=== PATIENT | female | born 1990 | race Caucasian/White ===

== ENCOUNTER 2024-01-07 12:51 | Emergency (ER) | payer OTHER, SELFPAY ==
[2024-01-07 12:51] VITALS: BMI 69.9
[2024-01-07 12:52] VITALS: BP 163/115
[2024-01-07 13:14] LABS: % Basophils 0.6 % (0-2); % Eosinophils 1.2 % (0-6); % Immature Granulocytes 0.3 % (0-0.5); % Lymphocytes 29.6 % (20.5-51.1); % Monocytes 5.8 % (1.7-9.3); % Neutrophils 62.5 % (42.2-75.2); Absolute Eosinophils 0.1 10^3/uL (0-0.7); Absolute Lymphocytes 2.1 10^3/uL (1.2-3.4); Absolute Monocytes 0.4 10^3/uL (0.1-0.6); Absolute Neutrophils 4.5 10^3/uL (1.4-6.5); Hematocrit 38.1 % (37.0-47.0); Hemoglobin 12.9 g/dL (12.0-16.0); Mean Corp Hgb Conc. 33.9 g/dL (33.0-37.0); Mean Corpuscular Hgb 29.9 pg (27.0-31.0); Mean Corpuscular Volume 88.2 fL (81.0-99.0); Mean Platelet Volume 8.8 fL (7.4-10.4); Nucleated Red Blood Cells % 0 %; Platelet Count 217 10^3/uL (130-400); Red Blood Cell Count 4.32 10^6/uL (4.20-5.40); Red Cell Dist. Width 13.1 % (11.5-14.5); White Blood Cell Count 7.2 10^3/uL (4.8-10.8)
[2024-01-07 13:23] LABS: ALT (SGPT) 16 U/L (0-35); AST (SGOT) 25 U/L (14-36); Albumin 4.2 g/dl (3.5-5.0); Alkaline Phosphatase 65 U/L (38-126); Blood Urea Nitrogen 14 mg/dl (7-17); Calcium 8.9 mg/dl (8.4-10.2); Carbon Dioxide 24 mmol/L (22-30); Chloride 107 mmol/L (98-107); Glucose 101 mg/dl (70-99); Potassium 4.1 mmol/L (3.5-5.1); Sodium 136 mmol/L (135-145); Total Bilirubin 0.4 mg/dl (0.2-1.3); Total Protein 7.6 g/dl (6.3-8.2); eGFR > 60.00
[2024-01-07 15:39] VITALS: BP 157/94
--- NOTE | 2024-01-07 15:51 | ED.GENMED ---
History of Present Illness
<Odalys Gunn PA-C - Last Filed: 01/11/24 10:26>
General
Chief Complaint: Abdominal Pain
Source: patient
Exam Limitations: none
Time Seen by Provider: 01/07/24 15:41
Nursing documentation reviewed up to this point in time: agreed with
Travel History
Have you had any contact with someone who has COVID-19?: No
Do you have any symptoms of coronavirus? Fever > 100 degrees, chills, cough, shortness of breath, sore throat, loss of taste or smell, muscle aches, or headache?: No
History of Present Illness
History of Present Illness:
This is of 33-year-old female with a past medical history of arm DVT, PCOS, dermoid cyst status post right oophorectomy presenting emergency department today with left-sided pelvic pain and left back pain for the past 2 days. Patient states that
the pain is constant, however it will get worse at certain times throughout the day and become very severe. Patient is not able to identify anything that makes her pain particularly worse. Patient states that her pain does not respond well to
ibuprofen or acetaminophen. Patient denies any nausea or vomiting. Patient states that her bowel movements have been regular and normal. Patient's last menstrual cycle was around 3 weeks ago. Patient denies any dysuria, hematuria. Patient
denies any chance of , denies any history of STDs. Patient has a vaginal discharge. Patient denies any history of abdominal surgeries other than her L oophorectomy and her .
Past History
<Odalys Gunn PA-C - Last Filed: 01/11/24 10:26>
Past History
ED Past Medical History: Asthma and Other (ADHD, Ankle Fracture, Lyme, Cellulitis, DVT, morbid obesity); Negative HTN, Hypercholesterolemia or NIDDM
ED Past Surgical History: , Gynecological (Ovarian cyst removed. Oophorectomy thinks Left), Tonsilectomy and Other (Adenoid surgery)
Social History
Tobacco: Non-smoker
Alcohol: None
Personal: Single
Living: with family
Employment: Employed (childcare)
Review of Systems
<Odalys Gunn PA-C - Last Filed: 01/11/24 10:26>
Review of Systems
All Other Systems: ROS reviewed and negative except as documented in HPI and ROS
Phy Exam
<Odalys Gunn PA-C - Last Filed: 01/11/24 10:26>
Physical Exam
Physical Exam:
Vitals: Patient's vital signs are stable
General: Patient is well-appearing, no acute distress
Skin: Warm and dry, no rashes or lesions
Head: Normocephalic, atraumatic
Cardiac: Regular rate and rhythm, no murmurs
Peripheral Vascular: No lower extremity swelling
Pulm: Normal respiratory effort
Abdomen: Tenderness to palpation of the left lower abdominal quadrant. No organomegaly, no palpable masses. No rigidity, no guarding. No rebound tenderness.
Neuro: CN II-XII intact, no focal neurologic deficits.
Psychiatric: Appropriate mood and affect
Course
<Odalys Gunn PA-C - Last Filed: 01/11/24 10:26>
Orders/Labs/Results
Orders:
Orders
01/07/24 13:00
CMP [Comprehensive Metabolic Panel] Urgent
Complete Blood Count/With Diff Urgent
HCG, Serum Qualitative Screen Urgent
Comment: HCG QUALITATIVE ADDED ON BY FLOOR 3:30PM 01-07-24
01/07/24 15:28
Add On- LAB Urgent
Tests Added?: HCG qualitative
01/07/24 16:06
US Pelvis Only (non-obstetric) Urgent
Comment:
Reason For Exam: left sided pelvic pain
01/07/24 16:09
Ketorolac [Toradol] 30 mg IM NOW STA
01/07/24 19:00
CT Abd/pelvis W Iv Cont Urgent
Comment:
Reason For Exam: left lower quad ab pain
0.9% Sodium Chloride 1000 ml [Nss] 1,000 ml IV BOLUS
01/07/24 19:32
Urinalysis Reflex To Culture Urgent
Date Specimen was Collected: 01/07/24
Time Specimen was Collected: 12:57
Abnormal Lab Results
01/07/24
13:00
Glucose 101 H mg/dl
(70-99)
01/07/24 13:00
01/07/24 13:00
Vital Signs
Initial and Last Documented VS:
Initial Vital Signs
Temp Pulse Resp BP Pulse Ox
98.4 F 88 20 163/115 97
01/07/24 12:52 01/07/24 12:52 01/07/24 12:52 01/07/24 12:52 01/07/24 12:52
Last Documented Vital Signs
Temp Pulse Resp BP Pulse Ox
98.4 F 80 16 136/66 98
01/07/24 12:52 01/07/24 20:34 01/07/24 20:34 01/07/24 20:34 01/07/24 20:34
<Thor Quintero, DO - Last Filed: 01/07/24 20:49>
Orders/Labs/Results
Orders:
Orders
01/07/24 13:00
CMP [Comprehensive Metabolic Panel] Urgent
Complete Blood Count/With Diff Urgent
HCG, Serum Qualitative Screen Urgent
Comment: HCG QUALITATIVE ADDED ON BY FLOOR 3:30PM 01-07-24
01/07/24 15:28
Add On- LAB Urgent
Tests Added?: HCG qualitative
01/07/24 16:06
US Pelvis Only (non-obstetric) Urgent
Comment:
Reason For Exam: left sided pelvic pain
01/07/24 16:09
Ketorolac [Toradol] 30 mg IM NOW STA
01/07/24 19:00
CT Abd/pelvis W Iv Cont Urgent
Comment:
Reason For Exam: left lower quad ab pain
0.9% Sodium Chloride 1000 ml [Nss] 1,000 ml IV BOLUS
01/07/24 19:32
Urinalysis Reflex To Culture Urgent
Date Specimen was Collected: 01/07/24
Time Specimen was Collected: 12:57
Abnormal Lab Results
01/07/24
13:00
Glucose 101 H mg/dl
(70-99)
01/07/24 13:00
01/07/24 13:00
Vital Signs
Initial and Last Documented VS:
Initial Vital Signs
Temp Pulse Resp BP Pulse Ox
98.4 F 88 20 163/115 97
01/07/24 12:52 01/07/24 12:52 01/07/24 12:52 01/07/24 12:52 01/07/24 12:52
Last Documented Vital Signs
Temp Pulse Resp BP Pulse Ox
98.4 F 80 16 136/66 98
01/07/24 12:52 01/07/24 20:34 01/07/24 20:34 01/07/24 20:34 01/07/24 20:34
<Odalys Gunn PA-C - Last Filed: 01/11/24 10:26>
MDM/Problems Addressed
Differential Diagnosis Includes:
Differentials include ovarian cyst, ovarian torsion, nephrolithiasis, pyelonephritis, acute cystitis, dysmenorrhea
MDM/Problems Addressed:
left pelvic pain
Chronic conditions affecting care:
PCOS, right oophorectomy, asthma,
Acute Exacerbation and/or Progression of Chronic Illness:
PCOS, right oophorectomy, asthma,
<Odalys Gunn PA-C - Last Filed: 01/11/24 10:26>
*Pulse Oximetry
Patient hypoxic: no
*Critical Care Note
Total Time (30-74mins, 75-104mins- exclusive of procedures): Not Applicable
Data Reviewed
Review of Other/Old Records Reveals: Records (Reviewed ER physician documentation from 01/23/2023) and Discharge Summary (No discharge summaries in [facility] to review)
Source: patient and records
Prescriptions/Medications Considered But Not Given:
Patient was given Toradol for pain control
<Odalys Gunn PA-C - Last Filed: 01/11/24 10:26>
Patient Management
Escalation/DeEscalation of care consider admission/obs:
This is of 33-year-old female with a past medical history of arm DVT, PCOS, dermoid cyst status post right oophorectomy presenting emergency department today with left-sided pelvic pain and left back pain for the past 2 days. Patient states that
this pain felt very similar to dosis she had many years ago. Here emergency department, she does have tenderness palpation left lower quadrant. Her vital signs are stable. Her her ultrasound is negative for any cyst or mass, has normal blood flow
to left ovary.
ED Attending Note
<Odalys Gunn PA-C - Last Filed: 01/11/24 10:26>
-
Portions of this chart may have been created with voice recognition software.� Occasional wrong word or��sound alike� substitutions may have occurred due to the inherent limitations of voice recognition software.
<Thor Quintero DO - Last Filed: 01/07/24 20:49>
ED Attending Note
Patient seen and examined by attending physician: Yes
I performed the substantive portion of visit, reviewed & personally made and approve the management plan that is documented in note by myself or MARTY.: Yes
ED Attending Note:
33-year-old female with low back and left-sided abdominal pain that is lateral in the left abdomen. Pain started few days ago. Denies diarrhea or melena. No hematochezia. No dysuria. Exam: Tenderness noted to the left lateral abdomen. No
periumbilical tenderness. No distention. Patient is obese. No respiratory distress. Assessment plan: White count normal, ultrasound unremarkable, CT negative. Appears well. Okay for discharge. Recommended Tylenol and ibuprofen for pain
control and outpatient follow-up
Discharge Plan
Departure
Patient Disposition: Home (Routine Discharge)
Date of Disposition: 01/07/24
Time of Disposition: 20:48
Patient with high blood pressure during this ER visit?: Yes
Condition: Good
Discharge Problem:
Left lower quadrant abdominal pain
Instructions: Abdominal Pain, BLOOD PRESSURE
Prescriptions:
No Action
loratadine 10 MG tablet
10 mg PO DAILY
cephalexin 500 MG capsule
500 mg PO BID Qty: 14 0RF
cephalexin 500 MG capsule
500 mg PO TID Qty: 30 0RF
oxycodone 5 mg tablet
5 mg PO Q8H PRN (Reason: pain) Qty: 8 0RF
Referrals:
Laura Neville DO [Active] - Call in 1-3 days for appt
Irving Rodriguez DO [Family Provider] -
Activity Restrictions/Additional Instructions:
Your pelvic ultrasound did not show any mass or cyst in the left ovary.
I attached a referral for an [employer] as you are looking to establish care with a new provider.
Please return to emergency department should she develop intractable vomiting, and acute worsening of your symptoms, pain with urination, blood in your urine, fevers or chills, shortness of breath, chest pain, or other concerning signs or symptoms.
Please follow up with your primary care provider.
Interventions
Interventions:
*Risk Screen - Suicide Last Done: 01/07/24 15:39
*General Assessment Last Done: 01/07/24 15:39
*Neglect/Abuse Screening Last Done: 01/07/24 15:39
ED- Fall Risk Assessment Last Done: 01/07/24 16:24
*ED COVID-19 Vaccine History Last Done: 01/07/24 15:29
*Nursing Disposition Last Done: 01/07/24 21:03
HI-Ktzhtj-Cbyuyezbrx Assessment Last Done: 01/07/24 15:39
Discharge Date and Time
Discharge Date/Time: 01/07/24 21:09
Print Language: MACEDONIAN
[2024-01-07] MEDS: TORADOL 30 MG IM (16:23)
[2024-01-07 16:24] LABS: HCG, Serum Qualitative Screen Negative
[2024-01-07 18:00] VITALS: BP 132/74
[2024-01-07] MEDS: NSS 1000 IV (19:31)
[2024-01-07 19:37] LABS: Urine Albumin Negative (Neg - Trace); Urine Bilirubin Negative (Negative); Urine Character Clear (Clear); Urine Color Yellow; Urine Glucose Negative (Negative); Urine Ketone Negative (Negative); Urine Leukocyte Negative (Negative); Urine Nitrite Negative (Negative); Urine Occult Blood Negative (Negative); Urine Urobilinogen Negative (Neg - 1+)
[2024-01-07 20:34] VITALS: BP 136/66
== END 2024-01-07 21:09 | disposition home or self-care (01) ==
LOC: EMR 12:51
PROVIDERS: Emergency Medicine; EMERGENCY PHYSICIAN Emergency Medicine; FAMILY PHYSICIAN Family Medicine
DX: R10.32 Left lower quadrant pain (principal); R10.2 Pelvic and perineal pain; R03.0 Elevated blood-pressure reading, without diagnosis of hypertension; E28.2 Polycystic ovarian syndrome; J45.909 Unspecified asthma, uncomplicated
CPT/HCPCS: 99285; 96360; 96372; 74177; 76856; 80053; 81003; 84703; 85025; Q9967

== ENCOUNTER 2024-02-01 17:20 | Observation (INO) | payer OTHER, SELFPAY ==
[2024-02-01] VITALS (7 sets, daily range): BP systolic 128–215; BP diastolic 68–114; BMI 68.5; BMI 67.9
--- NOTE | 2024-02-01 13:24 | ED.GENMED ---
History of Present Illness
<Bolivar Cherry PA-C - Last Filed: 02/01/24 16:53>
General
Chief Complaint: Numbness
Time Seen by Provider: 02/01/24 13:01
Travel History
Have you had any contact with someone who has COVID-19?: No
Do you have any symptoms of coronavirus? Fever > 100 degrees, chills, cough, shortness of breath, sore throat, loss of taste or smell, muscle aches, or headache?: No
History of Present Illness
History of Present Illness:
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
swelling associated with a tingling/burning sensation, weakness along the face, right greater than left, with inability to raise the eyebrows and smile, and a mild headache and dizziness. No hearing impairment, tinnitus, or ear pain. No visual
changes. No eye pain. No fevers. No cough. No vomiting. No abdominal pain or diarrhea. Patient denies numbness or tingling. No focal weakness. She denies symptoms from the neck down. She denies history of hypertension. She has never had
the symptoms previously.
The patient does report taking a tick off of her yesterday which she reports has been on since last . She did bring the tick with her today. The tick was noted along the upper forehead/scalp.
Past History
<Bolivar Cherry PA-C - Last Filed: 02/01/24 16:53>
Past History
ED Past Medical History: Asthma and Other (ADHD, Ankle Fracture, Lyme, Cellulitis, DVT, morbid obesity); Negative HTN, Hypercholesterolemia or NIDDM
ED Past Surgical History: , Gynecological (Ovarian cyst removed. Oophorectomy thinks Left), Tonsilectomy and Other (Adenoid surgery)
Social History
Tobacco: Non-smoker
Alcohol: None
Personal: Single
Living: with family
Employment: Employed (childcare)
Review of Systems
<Bolivar Cherry PA-C - Last Filed: 02/01/24 16:53>
Review of Systems
All Other Systems: ROS reviewed and negative except as documented in HPI and ROS
Phy Exam
<Bolivar Cherry PA-C - Last Filed: 02/01/24 16:53>
Physical Exam
Physical Exam:
GENERAL: Alert , in no apparent distress
EYE: pupils equal and reactive to light, extraocular movements intact, inability to raise the eyebrows bilaterally
NECK: Supple, no significant adenopathy.
ENT: o/p clr, mmm.
CARDIAC: Regular rate and rhythm .
LUNGS: Clear breath sounds bilaterally, no acute respiratory distress, no wheezes/rales/rhonchi
ABDOMEN: Soft, without focal tenderness, no r/g, no cvat
NEUROLOGICAL: Alert and oriented, there is a right greater than left facial droop, there is decreased sensation along the right greater than left facial region to light touch, moving all extremities, normal motor
SKIN: Warm and dry, skin intact.
MUSCULOSKELETAL: No edema, well perfused.
PSYCH: Normal and appropriate interaction.
Course
<Bolivar Cherry PA-C - Last Filed: 02/01/24 16:53>
Orders/Labs/Results
Orders:
Orders
02/01/24 12:36
ECG [Electrocardiogram (*1)] Urgent
Reason for Study: Other
Other Reason for Exam: numbness
EKG- Treatment ONCE
02/01/24 13:19
CT Head W/o Iv Contrast Urgent
Comment:
Reason For Exam: hypertensive, headache, facial palsy
Test Result ONCE
02/01/24 13:27
Complete Blood Count/With Diff Urgent
Comprehensive Metabolic Panel Urgent
HCG, Serum Qualitative Screen Urgent
Lyme Progressive Urgent
Magnesium Urgent
Phosphorus Urgent
TSH Reflex To Free T4 Urgent
02/01/24 14:21
Doxycycline Hyclate [Vibramycin] 100 mg 0.9% Sodium Chloride 250 ml [Nss] 250 ml IV NOW
02/01/24 15:59
HydrALAZINE [Apresoline] 5 mg IV NOW STA
02/01/24 16:38
Admit/Transfer Patient As Directed
Co-Sign Provider:
Level of Care: Observation services
Assign to:: Telemetry
Physician / Group: Nam
Diagnosis: Uncontrolled Hypertension; Rash/Facial Palsy
Reason for Telemetry: Arrhythmia
Date to Stop Telemetry: 02/04/24
Time to Stop Telemetry: 11:00
Amlodipine [Norvasc] 5 mg PO NOW STA
02/01/24 16:39
Code Status As Directed
Resuscitation Status: Full Code
02/01/24 16:46
Prednisone [Deltasone] 40 mg PO NOW STA
02/04/24 11:00
DC Protocol for Telemetry ONCE
02/01/24 13:27
02/01/24 13:27
Vital Signs
Blood pressure: 158/93
Initial and Last Documented VS:
Initial Vital Signs
Temp Pulse Resp BP Pulse Ox
98.3 F 93 18 215/114 98
02/01/24 12:30 02/01/24 12:30 02/01/24 12:30 02/01/24 12:30 02/01/24 12:30
Last Documented Vital Signs
Temp Pulse Resp BP Pulse Ox
98.3 F 62 19 173/108 100
02/01/24 12:30 02/01/24 16:20 02/01/24 16:20 02/01/24 16:20 02/01/24 16:20
<Paulo Augustin, DO - Last Filed: 02/01/24 13:46>
Orders/Labs/Results
Orders:
Orders
02/01/24 12:36
ECG [Electrocardiogram (*1)] Urgent
Reason for Study: Other
Other Reason for Exam: numbness
EKG- Treatment ONCE
02/01/24 13:19
CT Head W/o Iv Contrast Urgent
Comment:
Reason For Exam: hypertensive, headache, facial palsy
Test Result ONCE
02/01/24 13:27
Complete Blood Count/With Diff Urgent
Comprehensive Metabolic Panel Urgent
HCG, Serum Qualitative Screen Urgent
Lyme Progressive Urgent
Magnesium Urgent
Phosphorus Urgent
TSH Reflex To Free T4 Urgent
02/01/24 14:21
Doxycycline Hyclate [Vibramycin] 100 mg 0.9% Sodium Chloride 250 ml [Nss] 250 ml IV NOW
02/01/24 15:59
HydrALAZINE [Apresoline] 5 mg IV NOW STA
02/01/24 16:38
Admit/Transfer Patient As Directed
Co-Sign Provider:
Level of Care: Observation services
Assign to:: Telemetry
Physician / Group: Nam
Diagnosis: Uncontrolled Hypertension; Rash/Facial Palsy
Reason for Telemetry: Arrhythmia
Date to Stop Telemetry: 02/04/24
Time to Stop Telemetry: 11:00
Amlodipine [Norvasc] 5 mg PO NOW STA
02/01/24 16:39
Code Status As Directed
Resuscitation Status: Full Code
02/01/24 16:46
Prednisone [Deltasone] 40 mg PO NOW STA
02/04/24 11:00
DC Protocol for Telemetry ONCE
02/01/24 13:27
02/01/24 13:27
Vital Signs
Initial and Last Documented VS:
Initial Vital Signs
Temp Pulse Resp BP Pulse Ox
98.3 F 93 18 215/114 98
02/01/24 12:30 02/01/24 12:30 02/01/24 12:30 02/01/24 12:30 02/01/24 12:30
Last Documented Vital Signs
Temp Pulse Resp BP Pulse Ox
98.3 F 62 19 173/108 100
02/01/24 12:30 02/01/24 16:20 02/01/24 16:20 02/01/24 16:20 02/01/24 16:20
<Bolivar Cherry PA-C - Last Filed: 02/01/24 16:53>
MDM/Problems Addressed
Differential Diagnosis Includes:
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
swelling associated with a tingling/burning sensation, weakness along the face, right greater than left, with inability to raise the eyebrows and smile, and a mild headache and dizziness. Overall, patient appears uncomfortable. She is
significantly hypertensive to 215/114. Physical examination described above. On exam, the patient is noted to have inability to raise both of her eyebrows symmetrically with a right greater than left facial droop. She also has swelling that is
generalized along her face with mild nonspecific erythema along her cheeks and forehead. She is able to tolerate p.o. but is having difficulty swallowing. No breathing problems noted. Symptoms/findings concerning for a Lyme etiology with
bilateral facial nerve palsy. We will initiate work up and discuss with neurology. Case was discussed with ED attending, Dr. Augustin.
02/01/2024 15:48: Screening labs grossly within normal limits. CT head negative for acute findings. EKG nonischemic. Repeat blood pressure improving. Case was discussed with neurology, Dr. Vazquez, who evaluated patient at bedside. They recommend
improving the patient's blood pressure and continuing doxycycline for presumed acute Lyme disease. We will admit patient to medicine for further monitoring and continued treatment of Lyme. Patient stable at time of admission. All questions
answered.
<Bolivar Cherry PA-C - Last Filed: 02/01/24 16:53>
*Critical Care Note
Total Time (30-74mins, 75-104mins- exclusive of procedures): Not Applicable
ED Attending Note
<Bolivar Cherry PA-C - Last Filed: 02/01/24 16:53>
-
Portions of this chart may have been created with voice recognition software.� Occasional wrong word or��sound alike� substitutions may have occurred due to the inherent limitations of voice recognition software.
<Paulo Augustin DO - Last Filed: 02/01/24 13:46>
ED Attending Note
Patient seen and examined by attending physician: Yes
I performed the substantive portion of visit, reviewed & personally made and approve the management plan that is documented in note by myself or MARTY.: Yes
ED Attending Note:
I have seen and evaluated the patient with a [id number] encounter. I have spoken to the advance practicer provider and involved in the medical history, the physical exam, medical decision making.
Evaluation and management service: agree unless noted differently below.
Results interpretation: agree unless noted differently below.
Focused HPI: 33-year-old female presenting with bilateral facial tingling and weakness. It has progressed over the past few hours. She did noted that there was a tick on her forehead
Physical exam: Bilateral facial droop and inability to raise eyebrow. EOMI. Sensation appears to be in
Medical Decision Making: Patient is showing signs of bilateral Gonsales's palsy. This is likely in the setting of Lyme's disease. Will start IV doxycycline. Will discuss case with neurology
Discharge Plan
Departure
Patient Disposition: Admit
Date of Disposition: 02/01/24
Time of Disposition: 15:59
Admit to: Med/Surg
Admit to doctor: Dr. Edy Browning
Presentation/result/management discussed w/ accepting MD/DO: Hospitalist
Patient with high blood pressure during this ER visit?: Yes
Condition: Fair
Discharge Problem:
Facial nerve palsy, Tick bite
Prescriptions:
No Action
diphenhydramine HCl [Benadryl] 25 mg Capsule
25 mg PO DAILYPRN PRN (Reason: ALLERGIES)
ibuprofen [Advil] 200 mg Tablet
200 mg PO Q6HPRN PRN (Reason: MILD PAIN)
cholecalciferol (vitamin D3) [Vitamin D3] 25 mcg (1,000 unit) Tablet
25 mcg PO DAILY
Referrals:
Irving Rodriguez DO [Family Provider] -
Interventions
Interventions:
*Risk Screen - Suicide Last Done: 02/01/24 12:30
*General Assessment Last Done: 02/01/24 12:30
*Neglect/Abuse Screening Last Done: 02/01/24 12:30
ED- Fall Risk Assessment Last Done: 02/01/24 14:03
*ED COVID-19 Vaccine History Last Done: 02/01/24 14:03
ED- Neurological Assessment Last Done: 02/01/24 14:03
Discharge Date and Time
Print Language: PRYDEINIG
--- NOTE | 2024-02-01 13:33 | CON.NEURO4 ---
Addendum entered and electronically signed by rDagan Vazquez MD 02/01/24 16:14:
Studies reviewed.
I have personally examined the patient. I reviewed and agree with the CONDENSER CLEANER's Note.
My addenda:
Awake, alert, interactive. No acute distress.
Speech mildly thick. Reduced forehead wrinkle bilaterally. Increased jowls. Fine rash across head and neck
Follows 2-step requests w/o difficulty. No tremor.
Extra-ocular movements grossly intact.
Facial movements full and symmetric. Hearing intact to normal conversational volume.
Normal UE movements bilaterally.
Neck: full ROM.
Chest: no dyspnea
Heart: no JVD
Ext: (-) Clubbing, (-) Cyanosis, (-) Edema
IMPRESSIONS/RECOMMENDATIONS:
Abrupt onset of rash with generalized swelling suggestive of allergic reaction
Likely the patient's inability to wrinkle forehead is due to excessive edema
Aggressive control over the patient's markedly elevated blood pressure
No clear indication patient would benefit from steroid use at this time, may be utilized from the standpoint of allergic control
D/W patient
All questions answered.
Will continue to follow as needed.
Original Note:
Consultation - Neurology 4
-
CONSULTING PHYSICIAN: Dragan Vazquez MD
REFERRING PHYSICIAN: ER/Bolivar Cherry,
DICTATED BY: JANESSA Hdz
DATE/TIME OF REQUEST: 02/01/24
DATE/TIME OF CONSULTATION: 02/01/24
Reason for Consultation: Numbness
History of Present Illness:
This is a 33-year-old right-handed female who has presented to the hospital with report of tick bite, facial swelling, reduced facial movements, and right facial numbness. Patient reports developing a headache one week ago on 01/25/24. The headache
is a generalized aching and has been daily and constant, but ranges in severity. She attributed the headache to stress. Two days ago on 01/30/24 she found a tick on her left frontal scalp and pulled it off. She has the tick enclosed in tape with her
today and it is relatively large. Since two days ago, she reports intermittent dizziness. Today (02/01/24) at 1100 she reports developing sudden onset severe generalized facial swelling, decreased bilateral facial movement, difficultly swallowing, and
an erythematic rash on her face and chest. She was evaluated at urgent care, given two Benadryl, and sent to the ER for further evaluation. Currently, she reports that her facial swelling has improved. her headache is currently minimal. She has been
taking ibuprofen for relief. She denies any vision changes, hearing changes/tinnitus, taste changes, neck pain, speech difficulty, weakness, chest pain, palpitations, and shortness of breath. She endorses right facial numbness. Her blood pressure is
notably elevated at 215/114. She reports having high blood pressure readings after her son was born in 2014. She doesn't check her bp at home but doesn't think it's been running high. She was treated for Lyme disease previously in 2020.
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
Surgical History: , left oophorectomy, T&A
Family History: Reviewed and noncontributory.
Social History: Denies tobacco, alcohol, and illicit drug use.
Allergies: Adhesive tape, cigarette smoke, silver.
Home Medications: See below.
Review of Symptoms:
Patient denies any fever, chest pain, shortness of breath, GI or symptoms.
�Per the HPI.�All systems are reviewed negative except above.
Physical Exam:
The patient is afebrile, abdomen is nondistended, breathing is unlabored, skin is warm and dry,
Neurologic Examination:
The patient is awake, alert and oriented x 3. She is able to follow commands and answer questions appropriately. There is no aphasia or dysarthria. Speech is hypophonic. On cranial nerve assessment, pupils are 3 mm bilateral, round and reactive to
light and accommodation. Visual العلي are full. Extraocular movements are intact. There is reduced facial movement bilaterally in the entire face. Hearing is intact bilaterally to finger rub. Tongue palate and uvula are midline. Sternocleidomastoid
strengths are full bilaterally. Motor strengths are 5/5 bilateral upper and lower extremities on medical research [place] scale. There is no drift or involuntary movement noted. Deep tendon reflexes are 2+ bilateral upper and lower extremities and
Babinski is absent bilaterally. Sensation of temperature is intact and bilaterally symmetrical. There was no extinction noted on double simultaneous stimulation. Coordination is intact by finger to nose bilaterally.
Lab Results: See below.
Neuro Imaging: None.
Differentials for the patient's presentation include:
1. Reduced generalized facial movements more consistent with facial swelling as cause instead of bilateral Gonsales's palsy.
2. Tick size relatively large for a deer tick, but acute Lyme disease vs allergic reaction possible.
3. Hypertensive urgency possibly contributing to sensation changes.
4. Previous Lyme disease.
Patient has the following risk factors for their symptoms: recent tick bite, previous lyme disease, htn
Recommendations:
-Goal normotension, treat bp per ER team.
-Continue doxycycline course for presumed acute lyme disease per ER.
Discussed patient care with: Dr. Vazquez, the patient
Vital Signs and Labs
-
Vital Signs and Labs:
Vital Signs
Temp Pulse Resp BP Pulse Ox
98.3 F 93 18 215/114 98
02/01/24 12:30 02/01/24 12:30 02/01/24 12:30 02/01/24 12:30 02/01/24 12:30
Lab Results
02/01/24 13:27
02/01/24 13:27
Sodium 136 mmol/L (135-145) 02/01/24 13:27
Potassium 3.9 mmol/L (3.5-5.1) 02/01/24 13:27
BUN 12 mg/dl (7-17) 02/01/24 13:27
Glucose 90 mg/dl (70-99) 02/01/24 13:27
Calcium 9.0 mg/dl (8.4-10.2) 02/01/24 13:27
Phosphorus 2.8 mg/dl (2.5-4.5) 02/01/24 13:27
Medications
-
Active Medications
Generic Name Dose Route Start Last Admin
Trade Name Freq PRN Reason Stop Dose Admin
Doxycycline Hyclate 100 mg/ 260 mls @ 260 mls/hr 02/01/24 14:21 02/01/24 14:40
Sodium Chloride IV 02/01/24 15:20 260 mls
NOW STA Administration
Home Medications
�Medication �Instructions �Recorded
cholecalciferol (vitamin D3) 25 25 mcg PO DAILY 02/01/24
mcg (1,000 unit) tablet (Vitamin
D3)
diphenhydramine HCl 25 mg capsule 25 mg PO DAILYPRN PRN ALLERGIES 02/01/24
(Benadryl)
ibuprofen 200 mg tablet (Advil) 200 mg PO Q6HPRN PRN MILD PAIN 02/01/24
[2024-02-01 13:39] LABS: % Basophils 0.1 % (0-2); % Eosinophils 1.2 % (0-6); % Immature Granulocytes 0.3 % (0-0.5); % Lymphocytes 27.2 % (20.5-51.1); % Monocytes 6.6 % (1.7-9.3); % Neutrophils 64.6 % (42.2-75.2); Absolute Eosinophils 0.1 10^3/uL (0-0.7); Absolute Lymphocytes 2.1 10^3/uL (1.2-3.4); Absolute Monocytes 0.5 10^3/uL (0.1-0.6); Absolute Neutrophils 4.9 10^3/uL (1.4-6.5); Hematocrit 40.5 % (37.0-47.0); Hemoglobin 13.5 g/dL (12.0-16.0); Mean Corp Hgb Conc. 33.3 g/dL (33.0-37.0); Mean Corpuscular Hgb 29.9 pg (27.0-31.0); Mean Corpuscular Volume 89.8 fL (81.0-99.0); Mean Platelet Volume 9.1 fL (7.4-10.4); Nucleated Red Blood Cells % 0 %; Platelet Count 229 10^3/uL (130-400); Red Blood Cell Count 4.51 10^6/uL (4.20-5.40); White Blood Cell Count 7.5 10^3/uL (4.8-10.8)
[2024-02-01 13:58] LABS: HCG, Serum Qualitative Screen Negative
[2024-02-01 14:21] LABS: ALT (SGPT) 15 U/L (0-35); AST (SGOT) 25 U/L (14-36); Albumin 4.2 g/dl (3.5-5.0); Alkaline Phosphatase 79 U/L (38-126); Blood Urea Nitrogen 12 mg/dl (7-17); Carbon Dioxide 27 mmol/L (22-30); Chloride 105 mmol/L (98-107); Estimated Creatinine Clearance > 125 ml/min; Glucose 90 mg/dl (70-99); Magnesium 2.1 mg/dl (1.6-2.3); Phosphorus 2.8 mg/dl (2.5-4.5); Potassium 3.9 mmol/L (3.5-5.1); Sodium 136 mmol/L (135-145); Total Bilirubin 0.4 mg/dl (0.2-1.3); Total Protein 7.6 g/dl (6.3-8.2); eGFR > 60.00
[2024-02-01 14:27] LABS: TSH Reflex To Free T4 1.85 uIU/ml (0.47-4.68)
[2024-02-01] MEDS: VIBRAMYCIN 260 MG IV (14:40)
[2024-02-01] MEDS: APRESOLINE 5 MG IV (16:15)
--- NOTE | 2024-02-01 16:44 | HPS.HSE ---
Addendum entered and electronically signed by Edy Browning MD 02/01/24 17:10:
.
Original Note:
Family Physician
-
Family Physician: Irving Rodriguez
Chief Complaint
-
Facial Numbness, Swelling and Rash
History of Present Illness
This is a 33 year old female with a past medical history of Lyme disease in 2020, and PCOS, who presents to the ED for right sided facial numbness, facial swell and rash. She stated she found a tick on her hairline on Wednesday01/30/2024. On
01/31/2024 she began to feel dizzy and then this morning she noticed bilateral facial swelling, facial and chest rash, facial burning and right sided facial numbness. She also admits to difficulty speaking and she noticed right sided drooling from
her mouth. She took two Benadryl with improvement in the facial swelling and rash, but notes numbness and facial weakness persisted. She was seen at an Urgent Care earlier today who sent her to the emergency department for evaluation. She denies
trying any new products such as shampoos or lotions, and has not eaten anything outside her normal diet. She also presents with headache but she admits to stressors in her personal life regarding her son's health which she states could be the cause
of her headache. She denies having any trouble breathing, chest pain, or palpitations.
Medical History
Past Medical History
Past Medical History: Reports Other
Additional Past Medical History:
PCOS
Catheter Associated DVT
Class III Obesity
Past Surgical History: Reports Other
Additional Past Surgical History:
Oophorectomy
Carpal Tunnel
Tonsils and Adenoids
[place] Teeth
Social History
Tobacco: Non-smoker
Alcohol: None
Family History
Family History: Not pertinent
Allergies / Home Medications
Allergies reflects when Allergies were last updated in [facility].
Home Medications with original date entered in [facility] [employer]
Allergy/Medication List:
Allergies
Allergy/AdvReac Type Severity Reaction Status Date / Time
adhesive tape Allergy Rash Verified 02/01/24 12:30
cigarette smoke Allergy Shortness Verified 02/01/24 12:30
of Breath
silver Allergy Rash Verified 02/01/24 12:30
[From [employer] Mesh]
Home Medications
cholecalciferol (vitamin D3) 25 mcg (1,000 unit) tablet (Vitamin D3) 25 mcg PO DAILY Supplement 02/01/24
diphenhydramine HCl 25 mg capsule (Benadryl) 25 mg PO DAILYPRN PRN ALLERGIES 02/01/24
ibuprofen 200 mg tablet (Advil) 200 mg PO Q6HPRN PRN MILD PAIN 02/01/24
Review of Systems
-
A 12 point ROS was completed and negative except as noted: Yes
Constitutional: Denies Fever or Chills
Respiratory: Denies Cough or Trouble Breathing
Cardiac: Denies Chest Pain or Palpitations
Physical Exam
Vital Signs
Vital Signs
Temp Pulse Resp BP Pulse Ox
98.3 F 62 19 173/108 100
02/01/24 12:30 02/01/24 16:20 02/01/24 16:20 02/01/24 16:20 02/01/24 16:20
Physical Exam
General: Comfortable, Conversant and Morbidly Obese
HEENT: Anicteric and Moist mucous membranes
Respiratory: Clear and Non Labored Respirations
Cardiac: S1/S2 and Regular Rhythm
GI: Soft and Non Tender
Musculoskeletal: No Clubbing and No Cyanosis
Skin: Warm, Dry and Rash (Mild erythema bilateral cheeks and chest)
Neuro: Awake, Alert, Oriented and Other (Inability to wrinkle forehead bilaterally; Slight difficulty raising right corner of mouth)
Laboratory Results
-
02/01/24 13:27
02/01/24 13:27
Laboratory Results
Total Bilirubin 0.4 mg/dl (0.2-1.3) 02/01/24 13:27
AST 25 U/L (14-36) 02/01/24 13:27
ALT 15 U/L (0-35) 02/01/24 13:27
Alkaline Phosphatase 79 U/L (38-126) 02/01/24 13:27
Data Reviewed
-
CT Scan: Report Reviewed by me
Lab Data: Labs Reviewed by me
Impression/Plan
-
Uncontrolled Hypertension
-Start amlodipine
-Continue hydralazine prn
Facial Numbness/Swelling/Rash/Palsy, suspect Allergic Reaction though trigger is unclear
-Add prednisone
-Continue Benadryl prn
Recent Tick Bite, possible Lyme
-Consult ID
-Continue doxycycline
-Await Lyme Screen/PCR
Class III Obesity
-Affects all aspects of care
-Encourage weight loss
DVT proph: Lovenox
Code Status: Full Code
--- NOTE | 2024-02-01 17:10 | W.PN.UPDATE ---
Update Note
Progress Note Update
This note is in addition to SCROLL SAW OPERATOR/PA's note
I saw and examined the patient.
The SCROLL SAW OPERATOR or PA's note was reviewed and I agree with the note.
Comment: 33-year-old female with past medical history of obesity, PCOS, catheter associated DVT, previous Lyme disease came to the hospital with right-sided facial numbness, droop, swelling and rash. Patient she found a tick on her hairline on
Wednesday which she removed. Today she started developing facial swelling along with facial and chest rash. She took couple doses of Benadryl prior to coming to the hospital with some improvement. Neurology was consulted in the ED who did not think
patient symptoms are related to CVA and do not recommend further imaging. CT scan without CVA. IV doxycycline given in the ED. Will consult infectious disease. Started loading for blood pressure. Hydralazine as needed as well.
General: Comfortable, Conversant and Morbidly Obese
HEENT: Anicteric and Moist mucous membranes
Respiratory: Clear and Non Labored Respirations
Cardiac: S1/S2 and Regular Rhythm
GI: Soft and Non Tender
Musculoskeletal: No Clubbing and No Cyanosis
Skin: Warm, Dry and Rash (Mild erythema bilateral cheeks and chest)
Neuro: Awake, Alert, Oriented and Other (Inability to wrinkle forehead bilaterally; Slight difficulty raising right corner of mouth)
I spent a total of 76 minutes with the patient or on the floor. More than 50% of this time involved counseling and coordination of care.
[2024-02-01] MEDS: DELTASONE 40 MG PO (17:19)
[2024-02-01] MEDS: NORVASC 5 MG PO (17:19)
[2024-02-01] MEDS: REFRESH EYE DROPS (PF) BOTH EYES ×2 (20:42→22:10)
[2024-02-01] MEDS: VIBRAMYCIN 100 MG PO (22:09)
[2024-02-01] MEDS: TYLENOL 650 MG PO (22:09)
[2024-02-02 03:21] VITALS: BP 158/75
[2024-02-02 07:00] VITALS: BP 151/85
[2024-02-02 07:11] LABS: Hematocrit 38.8 % (37.0-47.0); Mean Corp Hgb Conc. 33.5 g/dL (33.0-37.0); Mean Corpuscular Hgb 29.6 pg (27.0-31.0); Mean Corpuscular Volume 88.4 fL (81.0-99.0); Mean Platelet Volume 9.4 fL (7.4-10.4); Platelet Count 209 10^3/uL (130-400); Red Blood Cell Count 4.39 10^6/uL (4.20-5.40); Red Cell Dist. Width 12.7 % (11.5-14.5); White Blood Cell Count 7.2 10^3/uL (4.8-10.8)
--- NOTE | 2024-02-02 07:23 | PTCARENOTE ---
Patient arrived on unit @1935 via stretcher from ED, ambulate to bed. Patient c/o H/A, prn tylenol given as ordered. Skin assessment completed, oriented to unit, call dominguez within reach.
[2024-02-02] MEDS: DELTASONE 40 MG PO (07:54)
[2024-02-02] MEDS: NORVASC 5 MG PO (07:55)
[2024-02-02] MEDS: VIBRAMYCIN 100 MG PO ×2 (07:55→20:37)
[2024-02-02] MEDS: REFRESH EYE DROPS (PF) BOTH EYES ×3 (07:58→17:04)
[2024-02-02 08:03] LABS: Blood Urea Nitrogen 12 mg/dl (7-17); Calcium 8.8 mg/dl (8.4-10.2); Carbon Dioxide 23 mmol/L (22-30); Chloride 108 mmol/L (98-107); Estimated Creatinine Clearance > 125 ml/min; Glucose 111 mg/dl (70-99); Potassium 4.6 mmol/L (3.5-5.1); Sodium 135 mmol/L (135-145); eGFR > 60.00
[2024-02-02 11:00] VITALS: BP 149/84
--- NOTE | 2024-02-02 11:06 | W.PN.HOSP.TC ---
Today's Communication/Plan
-
monitor vitals
see plan
ID to see today
lyme pending
cw doxy
increase amlodipine
Assessment / Plan
Assessment / Plan
General: Comfortable, Conversant and Morbidly Obese
HEENT: Anicteric and Moist mucous membranes
Respiratory: Clear and Non Labored Respirations
Cardiac: S1/S2 and Regular Rhythm
GI: Soft and Non Tender
Musculoskeletal: No Clubbing and No Cyanosis
Skin: Warm, Dry and Rash (Mild erythema bilateral cheeks and chest)
Neuro: Awake, Alert, Oriented and Other (Inability to wrinkle forehead bilaterally; Slight difficulty raising right corner of mouth)
Uncontrolled Hypertension
-cw amlodipine; increase to 10mg
-Continue hydralazine prn
Facial Numbness/Swelling/Rash/Palsy, suspect Allergic Reaction though trigger is unclear
-cw prednisone
-Continue Benadryl prn
Evaluated by neurology and there is no further neuroimaging needed, CT scan negative for CVA
Recent Tick Bite, possible Lyme
hx of lyme
-Consulted ID
-Continue doxycycline
-Await Lyme Screen/PCR
Class III Obesity
-Affects all aspects of care
-Encourage weight loss
DVT proph: Lovenox
Code Status: Full Code
Anticipated Discharge: Within 24 hours
Subjective/Interval History
-
Date of Service: February 02, 2024
does have some headache
Objective Data
-
Labs:
Laboratory Results
02/02/24
06:36
WBC 7.2
Hgb 13.0
Hct 38.8
Plt Count 209
Sodium 135
Potassium 4.6
Chloride 108 H
Carbon Dioxide 23
BUN 12
Creatinine 0.5 L
Glucose 111 H
Calcium 8.8
Vital Signs:
Vital Signs
Temp Pulse Resp BP Pulse Ox
98.3 F 65 18 151/85 98
02/02/24 07:00 02/02/24 07:55 02/02/24 07:00 02/02/24 07:55 02/02/24 07:00
--- NOTE | 2024-02-02 11:56 | CM ---
CM met with pt bedside
Pt resides with her 8 y/o son in a 2SH with 4 SATH[address]
Around 13-15 steps up to 2nd floor
Pt making arrangements for family to care for son
Pt currently unemployed and with no income stream for food or bills
Has SNAP benefits
Directed to [facility] [employer]- pt saved on her phone
PCP- Irving Rodriguez
Rx- Damian
Pt is OBS- OBS notice verbally reviewed
Copy provided
Pt plans to drive self home
May be eligible for [employer] for WC van dependent on policy benefits
Discharge Disposition- home, no needs anticipated
[2024-02-02] MEDS: TYLENOL 650 MG PO ×2 (14:24→20:37)
[2024-02-02] MEDS: BENADRYL 25 MG PO (14:25)
[2024-02-02 14:49] VITALS: BP 143/89
--- NOTE | 2024-02-02 15:52 | CON.ID ---
Consultation
-
Date/Time Consultation Requested: 02/01/2024 194
Date/Time Consultation Performed: 02/02/2024 1530
Requesting Provider: Kylee Pelletier
Performing Provider: Dr. Meléndez
Reason for Consultation: Facial erythema; Hx tick bite
Chief Complaint / Past History
History of Present Illness
Dawn Camargo is a 33-year-old female being evaluated at the request of Kylee Pelletier in regards to tick bite and facial erythema. History is obtained from chart review, along with patient interview.
The patient reports that she was in her usual state of health until 01/29 when she found a tick embedded in the skin on her forehead hairline. She notes that the tick was 'big', and her father removed it using a 'credit card'. The next day she
reports that she began to feel dizzy around 11 AM, and then developed bilateral facial swelling, and subsequent rash on her face and her chest. She additionally reports that her face was 'burning and she had some right facial numbness. She also
reports that she feels that her right face was drooping. She drove herself to urgent care, and was sent immediately to the emergency room for further evaluation.
Workup in the emergency room was rather unrevealing. She was started on empiric doxycycline. At this point in time she notes that she still has some mild facial discomfort. She notes no prior fevers or chills. She notes no other rashes on her
body. She admits to working outside helping her father mow the lawn several days before.
Past History
Additional Past Medical History:
Asthma
PCOS
Hx of IV site related DVT
ADHD
Hx Lyme
Morbid obesity (BMI = 67)
Additional Past Surgical History:
Oophorectomy
Allergy History:
adhesive tape Allergy (Verified 02/01/24 12:30)
Rash
cigarette smoke Allergy (Verified 02/01/24 12:30)
Shortness of Breath
silver [From [employer] Mesh] Allergy (Verified 02/01/24 12:30)
Rash
Medications Reviewed: Yes
Current Antibiotics:
Doxycycline
Social History
Tobacco: Non-Smoker
Alcohol: None
Drug: None
Personal: Single
Living: With Family
Employment: Employed
Family History
Family History: Not Pertinent
Review of Systems
Vital Signs
Temp Pulse Resp BP Pulse Ox
97.8 F 86 18 143/89 96
02/02/24 14:49 02/02/24 14:49 02/02/24 14:49 02/02/24 14:49 02/02/24 14:49
Physical Exam
Physical Exam
Constitutional: No Acute Distress, Comfortable, Non-toxic and Obese
Head: Normocephalic
Eyes: Pupils Equal, Pupils Round, No Conjunctival Hemorrhage and Sclera Anicteric
Pharynx: Benign
Oral: No Thrush and No Ulcers
Lymph Nodes: Negative Lymphadenopathy
Cardiovascular: S1/S2; Negative S3/S4 or Murmur
Pulmonary: Clear; Negative Rales or Rhonchi
Gastrointestinal: Soft, Non Tender and Non Distended
Extremities: Edema; Negative Cyanosis or Erythema
Skin: Rash (Bilateral facial erythema (mild))
Neurological: Awake, Alert, Normal Muscle Strength and Other (No facial droop appreciated. Symmetrical smile noted.)
Psychological: Calm
Lab / Diagnostic Study Results
02/02/24 06:36
02/02/24 06:36
Abs Immat Gran (auto) 0.0 10^3/uL (0-0.05) 02/01/24 13:27
Absolute Neuts (auto) 4.9 10^3/uL (1.4-6.5) 02/01/24 13:27
Absolute Lymphs (auto) 2.1 10^3/uL (1.2-3.4) 02/01/24 13:27
Absolute Monos (auto) 0.5 10^3/uL (0.1-0.6) 02/01/24 13:
Absolute Basos (auto) 0.0 10^3/uL (0-0.2) 02/01/24 13:
Immature Gran % 0.3 % (0-0.5) 02/01/24 13:
Neutrophils % 64.6 % (42.2-75.2) 02/01/24:
Lymphocytes % 27.2 % (20.5-51.1) 02/01/24:
Monocytes % 6.6 % (1.7-9.3) 02/01/24:
Eosinophils % 1.2 % (0-6) 02/01/24 13:
Basophils % 0.1 % (0-2) 02/01/24 13:
Microbiology Results
Imaging:
02/01/2024 CT head without contrast: Ventricles are normal in size, configuration and position for age. No intra or extra-axial mass, hemorrhage or fluid collection noted. No areas of normal mass effect or attenuation noted. Please see full
dictation for additional detail.
Assessment / Plan
Tick bite
Facial 'burning'
Asthma
PCOS
Hx of IV site related DVT
ADHD
Hx Lyme
Morbid obesity (BMI = 67)
Recommendations:
Given embedded tick, would complete a 3-day course of doxycycline 100 mg p.o. twice daily.
Lyme serology is pending, although given that the bite occurred just several days ago, any results will not be reflective of the recent bite; for that testing should be performed in approximately 3 to 4 weeks for best sensitivity.
[2024-02-02 19:20] VITALS: BP 137/83
[2024-02-02] MEDS: REFRESH EYE DROPS (PF) 1 DROPS BOTH EYES (20:39)
--- NOTE | 2024-02-02 23:00 | PTCARENOTE ---
Pt complained of unrelieved 7/10 headache. Pt stated Excedrin usually helps but it is too late at night to take. BUTTONHOLE MACHINE OPERATOR made aware, new order provided, see MAR. Will continue to monitor.
[2024-02-02] MEDS: MOTRIN 400 MG PO (23:02)
[2024-02-02 23:05] VITALS: BP 144/83
--- NOTE | 2024-02-03 02:11 | PTCARENOTE ---
Pt tachycardic on ambulation to bathroom, HR 120's-140's. Asymptomatic. SHEET MUSIC SALESPERSON made aware, no new orders provided. Will continue to monitor.
[2024-02-03 03:05] VITALS: BP 139/82
[2024-02-03 07:54] VITALS: BP 145/86
[2024-02-03] MEDS: VIBRAMYCIN 100 MG PO (07:55)
[2024-02-03] MEDS: NORVASC 10 MG PO (07:55)
[2024-02-03] MEDS: REFRESH EYE DROPS (PF) 1 DROPS BOTH EYES (07:56)
[2024-02-03] MEDS: DELTASONE 40 MG PO (07:56)
[2024-02-03] MEDS: FIORICET 1 TAB PO (10:13)
--- NOTE | 2024-02-03 11:01 | W.PN.HOSP.TC ---
Addendum entered and electronically signed by Edy Browning MD 02/03/24 11:22:
Time of discharge 36 minutes
Original Note:
Today's Communication/Plan
-
Monitor vital signs see plan
Discharge today
fiorcet
Continue with doxy
cw amlodipine
Assessment / Plan
Assessment / Plan
General: Comfortable, Conversant and Morbidly Obese
HEENT: Anicteric and Moist mucous membranes
Respiratory: Clear and Non Labored Respirations
Cardiac: S1/S2 and Regular Rhythm
GI: Soft and Non Tender
Musculoskeletal: No Clubbing and No Cyanosis
Skin: Warm, Dry and Rash (Mild erythema bilateral cheeks and chest)
Neuro: Awake, Alert, Oriented and Other (Inability to wrinkle forehead bilaterally)
Uncontrolled Hypertension
Now improving
-cw amlodipine; increased to 10mg
-Continue hydralazine prn
Patient to follow-up with outpatient PCP for further blood pressure medication titration
Facial Numbness/Swelling/Rash/Palsy, suspect Allergic Reaction though trigger is unclear
-cw prednisone
-Continue Benadryl prn
Evaluated by neurology and there is no further neuroimaging needed, CT scan negative for CVA
Migraine
Somewhat improved with fiorcet
Recent Tick Bite, possible Lyme
hx of lyme
ID following
-Continue doxycycline; given previous hx and symptoms will treat
-Await Lyme Screen/PCR
Class III Obesity
-Affects all aspects of care
-Encourage weight loss
DVT proph: Lovenox
Code Status: Full Code
Anticipated Discharge: Today
Subjective/Interval History
-
Date of Service: February 03, 2024
has mild headache
Objective Data
-
Vital Signs:
Vital Signs
Temp Pulse Resp BP Pulse Ox
98.2 F 69 16 145/86 98
02/03/24 07:54 02/03/24 07:55 02/03/24 07:54 02/03/24 07:55 02/03/24 07:54
I&O
02/02/24 02/03/24 02/04/24
06:59 06:59 06:59
Intake Total 480 / 480
Balance 480 / 480
--- NOTE | 2024-02-03 11:22 | W.DCSUMMARY ---
Discharge Summary
Discharge Data
Date of Admission: 02/01/24
Date of Discharge: 02/03/24
-
Pending Results: Yes
Hospital Course
33-year-old female with past medical history of Lyme disease, obesity, allergies came to the hospital with facial numbness, swelling, rash and Gonsales's palsy. Patient was seen by neurology initially and had a CT scan which did not show any signs of
stroke. Neurology did not recommended any further neuroimaging. In the hospital patient blood pressure was high so she was started on amlodipine. On discharge she was instructed to follow-up with primary care provider for blood pressure
medication titration. She also had a recent tick bite and had a concern for Lyme's disease. Lyme test was still pending prior to discharge. Patient was seen by infectious disease who instructed patient to continue with doxycycline. Once patient
symptoms continue to improve she was then discharged home with instructions to follow-up with all her physicians outpatient.
Discharge Plan
-
Patient Disposition: Home (Routine Discharge)
Discharge Diagnosis/Procedures: Uncontrolled hypertension
Facial numbness/swelling
Recent tick bite
Migraine
Diet: As tolerated
Activity: As tolerated
Driving Restrictions: As prior to admission
Bathing Restrictions: None
Referrals:
Irving Rodriguez DO [Family Provider] - in less than 1 week
Prescriptions:
New
doxycycline hyclate 100 mg Capsule
100 mg PO Q12 Qty: 36 0RF
prednisone 20 mg Tablet
40 mg PO DAILY Qty: 6 0RF
amlodipine 10 mg Tablet
10 mg PO DAILY Qty: 30 0RF
Probiotic 10 billion cell capsule
10,000 mmu cells PO DAILY Qty: 20 0RF
Continued
diphenhydramine HCl [Benadryl] 25 mg Capsule
25 mg PO DAILYPRN PRN (Reason: ALLERGIES)
ibuprofen [Advil] 200 mg Tablet
200 mg PO Q6HPRN PRN (Reason: MILD PAIN)
cholecalciferol (vitamin D3) [Vitamin D3] 25 mcg (1,000 unit) Tablet
25 mcg PO DAILY
Discharge Orders:
Discharge Patient (As Directed); Ordered 02/03/24
Ordered By: Edy Browning
Discharge Date and Time
Discharge Date/Time: 02/03/24 12:38
Print Language: GE[place]GI[place]
[2024-02-03 11:46] VITALS: BP 153/78
[2024-02-03 15:03] LABS: Lyme Antibody Screen, EIA Presump. Positive (Negative)
[2024-02-05 17:06] LABS: Lyme Ab Western Blot IgG Positive (Negative); Lyme Ab Western Blot IgM Positive (Negative)
== END 2024-02-03 12:38 | disposition home or self-care (01) ==
LOC: 3 WEST ACU 17:20
PROVIDERS: Physician Assistant; Physician Assistant Medical; ADMITTING PHYSICIAN Internal Medicine; EMERGENCY PHYSICIAN Student in an Organized Health Care Education/Training Program; FAMILY PHYSICIAN Family Medicine; OTHER PHYSICIAN Internal Medicine Infectious Disease; OTHER PHYSICIAN Psychiatry & Neurology Neurology
DX: G51.0 Bell's palsy (principal); R20.0 Anesthesia of skin; R21 Rash and other nonspecific skin eruption; R22.0 Localized swelling, mass and lump, head; R53.1 Weakness; R42 Dizziness and giddiness; G43.909 Migraine, unspecified, not intractable, without status migrainosus; S00.86XA Insect bite (nonvenomous) of other part of head, initial encounter; W57.XXXA Bitten or stung by nonvenomous insect and other nonvenomous arthropods, initial encounter; Y93.9 Activity, unspecified; Y92.9 Unspecified place or not applicable; J45.909 Unspecified asthma, uncomplicated; E28.2 Polycystic ovarian syndrome; E66.01 Morbid (severe) obesity due to excess calories; E11.9 Type 2 diabetes mellitus without complications; F90.9 Attention-deficit hyperactivity disorder, unspecified type; Z68.44 Body mass index [BMI] 60.0-69.9, adult; Z86.19 Personal history of other infectious and parasitic diseases; Z86.718 Personal history of other venous thrombosis and embolism; Z90.721 Acquired absence of ovaries, unilateral; Z91.048 Other nonmedicinal substance allergy status
CPT/HCPCS: 70450; 80048; 80053; 83735; 84100; 84443; 84703; 85025; 85027; 86617; 86618; 93005; 96374; 96375; 99285; G0378

== ENCOUNTER 2024-02-06 17:40 | Emergency (ER) | payer OTHER, SELFPAY ==
[2024-02-06 17:42] VITALS: BP 172/101
[2024-02-06 18:34] VITALS: BMI 68.8
[2024-02-06 18:44] VITALS: BP 137/85
--- NOTE | 2024-02-06 18:55 | ED.GENMED ---
History of Present Illness
General
Chief Complaint: DVT/Possible Blood Clot
Source: patient
Exam Limitations: none
Time Seen by Provider: 02/06/24 18:16
Nursing documentation reviewed up to this point in time: agreed with
Travel History
Have you had any contact with someone who has COVID-19?: No
Do you have any symptoms of coronavirus? Fever > 100 degrees, chills, cough, shortness of breath, sore throat, loss of taste or smell, muscle aches, or headache?: No
History of Present Illness
History of Present Illness:
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 Recently had an IV up until a few days ago. Does have a
history of blood clot but is not currently anticoagulated. Denies chest pain shortness of breath or additional concerns. No numbness or weakness.
Past History
Past History
ED Past Medical History: Asthma and Other (ADHD, Ankle Fracture, Lyme, Cellulitis, DVT, morbid obesity); Negative HTN, Hypercholesterolemia or NIDDM
ED Past Surgical History: , Gynecological (Ovarian cyst removed. Oophorectomy thinks Left), Tonsilectomy and Other (Adenoid surgery)
Social History
Tobacco: Non-smoker
Alcohol: None
Personal: Single
Living: with family
Employment: Employed (childcare)
Review of Systems
Review of Systems
Allergies reviewed?: Yes
All Other Systems: ROS reviewed and negative except as documented in HPI and ROS
Phy Exam
Physical Exam
Physical Exam:
GENERAL: Alert , in no apparent distress
EYE: pupils equal and reactive
NECK: Supple, no significant adenopathy.
ENT: o/p clr, mmm.
CARDIAC: Regular rate and rhythm .
LUNGS: Clear breath sounds bilaterally, no acute respiratory distress, no wheezes/rales/rhonchi
ABDOMEN: Soft, without focal tenderness, no r/g, no cvat
NEUROLOGICAL: Alert and oriented, no focal neuro deficits
SKIN: Small amount of bruising to the antecubital fossa but no obvious swelling normal distal pulses normal range of motion and strength of the upper extremities bilaterally. Warm and dry, skin intact.
MUSCULOSKELETAL: No edema, well perfused.
PSYCH: Normal and appropriate interaction.
Course
Orders/Labs/Results
Orders:
Orders
02/06/24 18:21
Venous Doppler Upr Ext Left [US Periph Venous UPPER Ext LT] Urgent
Comment:
Reason For Exam: left arm recent IV pain
Vital Signs
Initial and Last Documented VS:
Initial Vital Signs
Temp Pulse Resp BP Pulse Ox
98.1 F 88 19 172/101 100
02/06/24 17:42 02/06/24 17:42 02/06/24 17:42 02/06/24 17:42 02/06/24 17:42
Last Documented Vital Signs
Temp Pulse Resp BP Pulse Ox
98.1 F 75 18 150/97 98
02/06/24 20:23 02/06/24 20:23 02/06/24 20:23 02/06/24 20:23 02/06/24 20:23
MDM/Problems Addressed
MDM/Problems Addressed:
33-year-old female presenting to the emergency department today with concerns of discomfort to the left arm a few days after having IV does a history of DVT not currently anticoagulated. Here she is a small bruise to the AC fossa otherwise no
obvious swelling normal distal pulses plan for ultrasound for further assessment. Ultrasound without evidence of blood clot. Patient generally well-appearing no acute distress she has normal distal pulses good range of motion and strength no chest
pain. No evidence of life-threatening emergency at this time stable for outpatient management advised for close outpatient follow-up. Return precautions given.
*Critical Care Note
Total Time (30-74mins, 75-104mins- exclusive of procedures): Not Applicable
ED Attending Note
-
Portions of this chart may have been created with voice recognition software.� Occasional wrong word or��sound alike� substitutions may have occurred due to the inherent limitations of voice recognition software.
Discharge Plan
Departure
Patient Disposition: Home (Routine Discharge)
Date of Disposition: 02/06/24
Time of Disposition: 20:45
Patient with high blood pressure during this ER visit?: No
Condition: Good
Covid-19: Not Applicable
Discharge Problem:
Arm pain
Instructions: Muscle and bone pain - Discharge instructions
Prescriptions:
No Action
diphenhydramine HCl [Benadryl] 25 mg Capsule
25 mg PO DAILYPRN PRN (Reason: ALLERGIES)
ibuprofen [Advil] 200 mg Tablet
200 mg PO Q6HPRN PRN (Reason: MILD PAIN)
cholecalciferol (vitamin D3) [Vitamin D3] 25 mcg (1,000 unit) Tablet
25 mcg PO DAILY
prednisone 20 mg Tablet
40 mg PO DAILY Qty: 6 0RF
Patient Comments:
02/06/2024, pt. took last dose of this med. today; was prescribed for her to take 2 tablets daily for 3 days.
amlodipine 10 mg Tablet
10 mg PO DAILY Qty: 30 0RF
Probiotic 10 billion cell capsule
10,000 mmu cells PO DAILY Qty: 20 0RF
doxycycline hyclate 100 mg capsule
100 mg PO Q12H
Patient Comments:
02/06/2024, filled on 02/03/2024 and instructed to take one capsule Q12H for 18 days.
Referrals:
Irving Rodriguez DO [Family Provider] -
Activity Restrictions/Additional Instructions:
You came to the emergency department today with concerns of arm discomfort. Here you had a normal ultrasound and reassuring exam. Please follow close with the primary care doctor. Return to the emergency department for any worsening, new or
concerning symptoms.
Interventions
Interventions:
*Risk Screen - Suicide Last Done: 02/06/24 17:42
*General Assessment Last Done: 02/06/24 17:42
*Neglect/Abuse Screening Last Done: 02/06/24 17:42
ED- Fall Risk Assessment Last Done: 02/06/24 18:44
*ED COVID-19 Vaccine History Last Done: 02/06/24 18:35
ED- Cardiac Assessment Last Done: 02/06/24 18:44
ED- Pulmonary Assessment Last Done: 02/06/24 18:44
ED-Peripheral Vascular Assessment Last Done: 02/06/24 18:44
ED-Skin Assessment Last Done: 02/06/24 18:44
Discharge Date and Time
Print Language: SWAZI
[2024-02-06 20:23] VITALS: BP 150/97
== END 2024-02-06 20:59 | disposition home or self-care (01) ==
LOC: EMR 17:40
PROVIDERS: EMERGENCY PHYSICIAN Emergency Medicine; FAMILY PHYSICIAN Family Medicine
DX: M79.602 Pain in left arm (principal); S50.02XA Contusion of left elbow, initial encounter; X58.XXXA Exposure to other specified factors, initial encounter; G51.0 Bell's palsy; A69.20 Lyme disease, unspecified; J45.909 Unspecified asthma, uncomplicated; F90.9 Attention-deficit hyperactivity disorder, unspecified type; E66.01 Morbid (severe) obesity due to excess calories; Z86.718 Personal history of other venous thrombosis and embolism; Z91.048 Other nonmedicinal substance allergy status
CPT/HCPCS: 99284; 93971

== ENCOUNTER 2024-03-14 10:59 | Emergency (ER) | payer OTHER, SELFPAY ==
[2024-03-14 11:05] VITALS: BP 174/103
--- NOTE | 2024-03-14 11:25 | ED.GENMED ---
History of Present Illness
<Odalys Gunn PA-C - Last Filed: 03/14/24 18:01>
General
Chief Complaint: Headache
Source: patient
Exam Limitations: none
Time Seen by Provider: 03/14/24 11:25
Nursing documentation reviewed up to this point in time: agreed with
Travel History
Have you had any contact with someone who has COVID-19?: No
Do you have any symptoms of coronavirus? Fever > 100 degrees, chills, cough, shortness of breath, sore throat, loss of taste or smell, muscle aches, or headache?: No
History of Present Illness
History of Present Illness:
This is a 34 y/o female with a PMH of PCOS, asthma, DVT, recent Lyme disease status post doxycycline course presenting to emergency department today with concerns of a headache and blurry vision. Patient states that this started 3 days ago and she
has had dizziness and a headache persistently all day and is been getting worse. Patient went to see urgent care today and they sent her to the emergency department for further evaluation. Patient states that this feels a lot different than any
headache she has had in the past. Patient notes that the dizziness improved with staying still lying down and gets a lot worse with walking. Patient denies any recent falls, nausea, vomiting, chest pain, breath. Patient denies any paresthesias in
her extremities but does note occipital paresthesias. Patient denies any neck pain. Patient denies any recent vaccinations or new medications. Of note, patient was recently hospitalized in January for facial palsy, she no longer has this deficit.
Patient states her headache did not improve with the Motrin Tylenol. Patient denies any eye pain.
Past History
<Odalys Gunn PA-C - Last Filed: 03/14/24 18:01>
Past History
ED Past Medical History: Asthma and Other (ADHD, Ankle Fracture, Lyme, Cellulitis, DVT, morbid obesity); Negative HTN, Hypercholesterolemia or NIDDM
ED Past Surgical History: , Gynecological (Ovarian cyst removed. Oophorectomy thinks Left), Tonsilectomy and Other (Adenoid surgery)
Social History
Tobacco: Non-smoker
Alcohol: None
Personal: Single
Living: with family
Employment: Employed (childcare)
Review of Systems
<Odalys Gunn PA-C - Last Filed: 03/14/24 18:01>
Review of Systems
All Other Systems: ROS reviewed and negative except as documented in HPI and ROS
Phy Exam
<Odalys Gunn PA-C - Last Filed: 03/14/24 18:01>
Physical Exam
Physical Exam:
General: Patient seen lying in bed with eyes closed
Skin: Warm and dry, no rashes or lesions
Head: Normocephalic, atraumatic
Eyes: Sclera non-icteric. EOMs intact.
Cardiac: Regular rate
Peripheral Vascular:
Pulm: Normal respiratory effort
Abdomen: No abdominal tenderness
Musculoskeletal:
Neuro: CN II-XII intact, no focal neurologic deficits.
Psychiatric: Appropriate mood and affect.
Course
<Odalys Gunn PA-C - Last Filed: 03/14/24 18:01>
Orders/Labs/Results
Orders:
Orders
03/14/24 11:54
Test Result ONCE
03/14/24 11:55
CT Head W/o Iv Contrast Urgent
Comment:
Reason For Exam: persistent headache, blurry vision
03/14/24 12:02
Ketorolac [Toradol] 15 mg IV NOW STA
Prochlorperazine [Compazine] 10 mg IV NOW STA
03/14/24 12:13
CBC/With Diff [Complete Blood Count/With Diff] Stat
03/14/24 13:01
Diphenhydramine [Benadryl] 25 mg PO NOW STA
Sumatriptan Succinate [Imitrex] 100 mg PO NOW PRN
03/14/24 13:02
Ketorolac [Toradol] 15 mg IV NOW STA
03/14/24 13:03
[facility] [place] [facility] Urgent
Comment:
Reason For Exam: MRV as well eval for venous thrombus
Recent pill cam endoscopy?: No
MR Brain W/o & With Contrast Urgent
Comment:
Reason For Exam: New DOYLE, blur vision, eval CVST, pituitary path
Recent pill cam endoscopy?: No
03/14/24 13:07
Sumatriptan Succinate [Imitrex] 6 mg SC NOW STA
03/14/24 13:11
CMP [Comprehensive Metabolic Panel] Urgent
HCG, Serum Qualitative Screen Urgent
03/14/24 13:28
Sumatriptan Succinate [Imitrex] 100 mg PO NOW STA
03/14/24 13:50
Sumatriptan Succinate [Imitrex] 6 mg SC ONCE ONE
03/14/24 14:00
Sumatriptan Succinate [Imitrex] 100 mg PO NOW
03/14/24 14:15
Sumatriptan Succinate [Imitrex] 6 mg SC ONCE ONE
03/14/24 15:00
Sumatriptan Succinate [Imitrex] 6 mg SC ONCE ONE
Abnormal Lab Results
03/14/24
12:13
MCHC 32.7 L g/dL
(33.0-37.0)
03/14/24 12:13
03/14/24 13:11
Vital Signs
Initial and Last Documented VS:
Initial Vital Signs
Temp Pulse Resp BP Pulse Ox
97.9 F 65 20 174/103 96
03/14/24 11:05 03/14/24 11:05 03/14/24 11:05 03/14/24 11:05 03/14/24 11:05
Last Documented Vital Signs
Temp Pulse Resp BP Pulse Ox
97.9 F 56 18 147/86 100
03/14/24 11:05 03/14/24 14:00 03/14/24 14:00 03/14/24 17:05 03/14/24 17:06
<Franko Walker MD - Last Filed: 03/14/24 12:46>
Orders/Labs/Results
Orders:
Orders
03/14/24 11:54
Test Result ONCE
03/14/24 11:55
CT Head W/o Iv Contrast Urgent
Comment:
Reason For Exam: persistent headache, blurry vision
03/14/24 12:02
Ketorolac [Toradol] 15 mg IV NOW STA
Prochlorperazine [Compazine] 10 mg IV NOW STA
03/14/24 12:13
CBC/With Diff [Complete Blood Count/With Diff] Stat
03/14/24 13:01
Diphenhydramine [Benadryl] 25 mg PO NOW STA
Sumatriptan Succinate [Imitrex] 100 mg PO NOW PRN
03/14/24 13:02
Ketorolac [Toradol] 15 mg IV NOW STA
03/14/24 13:03
[facility] [place] [facility] Urgent
Comment:
Reason For Exam: MRV as well eval for venous thrombus
Recent pill cam endoscopy?: No
MR Brain W/o & With Contrast Urgent
Comment:
Reason For Exam: New DOYLE, blur vision, eval CVST, pituitary path
Recent pill cam endoscopy?: No
03/14/24 13:07
Sumatriptan Succinate [Imitrex] 6 mg SC NOW STA
03/14/24 13:11
CMP [Comprehensive Metabolic Panel] Urgent
HCG, Serum Qualitative Screen Urgent
03/14/24 13:28
Sumatriptan Succinate [Imitrex] 100 mg PO NOW STA
03/14/24 13:50
Sumatriptan Succinate [Imitrex] 6 mg SC ONCE ONE
03/14/24 14:00
Sumatriptan Succinate [Imitrex] 100 mg PO NOW
03/14/24 14:15
Sumatriptan Succinate [Imitrex] 6 mg SC ONCE ONE
03/14/24 15:00
Sumatriptan Succinate [Imitrex] 6 mg SC ONCE ONE
Abnormal Lab Results
03/14/24
12:13
MCHC 32.7 L g/dL
(33.0-37.0)
03/14/24 12:13
03/14/24 13:11
Vital Signs
Initial and Last Documented VS:
Initial Vital Signs
Temp Pulse Resp BP Pulse Ox
97.9 F 65 20 174/103 96
03/14/24 11:05 03/14/24 11:05 03/14/24 11:05 03/14/24 11:05 03/14/24 11:05
Last Documented Vital Signs
Temp Pulse Resp BP Pulse Ox
97.9 F 56 18 147/86 100
03/14/24 11:05 03/14/24 14:00 03/14/24 14:00 03/14/24 17:05 03/14/24 17:06
Lanlt;Odalys Gunn PA-C - Last Filed: 03/14/24 18:01>
MDM/Problems Addressed
Differential Diagnosis Includes:
ddx include migraine, occipital neuralgia, neurologic Lyme, idiopathic intracranial hypertension, tension headache, BPPV, CVA
MDM/Problems Addressed:
Dizziness, blurry vision, headache:
This is a 34 y/o female with a PMH of PCOS, asthma, DVT, recent Lyme disease status post doxycycline course presenting to emergency department today with concerns of a headache and blurry vision. Patient states that this started 3 days ago and she
has had dizziness and a headache persistently all day and is been getting worse. She is never had anything like this before. On exam, she does appear to have photophobia but otherwise unremarkable neurologic exam, cranial nerves intact, no gait
abnormalities, normal finger-nose and [id number] testing. Neurology was consulted who recommended MRI testing. No indication for LP at this time. Her CT of the head is negative for any acute intracranial abnormalities however when going for her
x-ray, she she is not able to tolerate the exam and so only an MRI was performed and patient denied any procedural sedation/medication, there is normal appearance to [place] on MRI but patient was not unable to stay for MRV and so we are
not able to rule out a large venous thrombosis at this time. With treatment, patient's symptoms significantly improved. Patient states that she feels like she is back to her baseline no longer experiencing any visual changes or dizziness. I
discussed option of doing CT angiogram with patient to rule out thrombosis, patient declining this at this time. I advised patient to continue to monitor her symptoms and following up with her primary provider. I suspect she likely suffered from
complex migraine.
Chronic conditions affecting care:
PCOS, asthma, DVT, obesity
Acute Exacerbation and/or Progression of Chronic Illness:
PCOS, asthma, DVT, obesity
<Odalys Gunn PA-C - Last Filed: 03/14/24 18:01>
*Pulse Oximetry
Patient hypoxic: no
*Critical Care Note
Total Time (30-74mins, 75-104mins- exclusive of procedures): Not Applicable
Data Reviewed
Review of Other/Old Records Reveals: Records and Discharge Summary (Reviewed most recent discharge summary)
Source: patient
<Odalys Gunn PA-C - Last Filed: 03/14/24 18:01>
Patient Management
Discussion with other providers: Breaker Up (Dr. Sepulveda, neurology)
Escalation/DeEscalation of care consider admission/obs:
Admit not indicated
ED Attending Note
<Odalys Gunn PA-C - Last Filed: 03/14/24 18:01>
-
Portions of this chart may have been created with voice recognition software.� Occasional wrong word or��sound alike� substitutions may have occurred due to the inherent limitations of voice recognition software.
<Franko Walker MD - Last Filed: 03/14/24 12:46>
ED Attending Note
Patient seen and examined by attending physician: Yes
I performed the substantive portion of visit, reviewed & personally made and approve the management plan that is documented in note by myself or MARTY.: Yes
ED Attending Note:
34-year-old complaining of diffuse headache x 3 days. Started mildly about a week ago. Some bilateral blurry vision. No double vision. No fever or rash. No acute neurologic symptoms although urgent care felt she had slight slurred speech and
was slightly ataxic. Patient has not noticed this issue. No history of headaches. Patient was treated for Lyme disease for 30 days about 6 weeks ago.
On exam she is nontoxic in no distress. Speech is very minimally slurred but essentially normal. Cranial nerves II through XII intact. I cannot appreciate her optical discs. Nonfocal. No rash. Regular rate and rhythm.
Large differential including tension headache migraine intracranial hypertension, cavernous vein thrombosis or dural vein thrombosis. Lyme would be on the list but very unlikely given the 30 days of treatment
Discharge Plan
Departure
Patient Disposition: Home (Routine Discharge)
Date of Disposition: 03/14/24
Time of Disposition: 17:18
Patient with high blood pressure during this ER visit?: Yes
Condition: Good
Discharge Problem:
Migraine headache
Instructions: Migraines (DC), BLOOD PRESSURE
Prescriptions:
No Action
diphenhydramine HCl [Benadryl] 25 mg Capsule
25 mg PO DAILYPRN PRN (Reason: ALLERGIES)
ibuprofen [Advil] 200 mg Tablet
200 mg PO Q6HPRN PRN (Reason: MILD PAIN)
cholecalciferol (vitamin D3) [Vitamin D3] 25 mcg (1,000 unit) Tablet
25 mcg PO DAILY
Probiotic 10 billion cell capsule
10,000 mmu cells PO DAILY Qty: 20 0RF
Referrals:
Irving Rodriguez DO [Family Provider] -
Activity Restrictions/Additional Instructions:
Please return emergency department should you experience chest pain, shortness of breath, difficulty ambulating, visual loss, visual changes, persistent paresthesias, syncopal episodes, weakness in one-sided body versus other, or any other signs or
symptoms concerning to you.
Please follow-up with your primary care provider in 1 week.
Interventions
Interventions:
*Risk Screen - Suicide Last Done: 03/14/24 11:05
*General Assessment Last Done: 03/14/24 11:05
*Neglect/Abuse Screening Last Done: 03/14/24 11:05
ED- Fall Risk Assessment Last Done: 03/14/24 11:35
*ED COVID-19 Vaccine History Last Done: 03/14/24 11:25
*Nursing Disposition Last Done: 03/14/24 17:33
ED- Neurological Assessment Last Done: 03/14/24 11:35
Discharge Date and Time
Discharge Date/Time: 03/14/24 17:34
Print Language: VIETNAMESE
[2024-03-14] MEDS: TORADOL 15 MG IV ×2 (12:15→13:28)
[2024-03-14] MEDS: COMPAZINE 10 MG IV (12:15)
[2024-03-14 12:17] VITALS: BP 119/80
[2024-03-14 12:32] VITALS: BP 153/76
[2024-03-14 12:33] LABS: % Basophils 0.5 % (0-2); % Eosinophils 1.5 % (0-6); % Immature Granulocytes 0.2 % (0-0.5); % Lymphocytes 30.3 % (20.5-51.1); % Neutrophils 61.5 % (42.2-75.2); Absolute Eosinophils 0.1 10^3/uL (0-0.7); Absolute Lymphocytes 1.7 10^3/uL (1.2-3.4); Absolute Monocytes 0.3 10^3/uL (0.1-0.6); Absolute Neutrophils 3.4 10^3/uL (1.4-6.5); Hematocrit 37.9 % (37.0-47.0); Hemoglobin 12.4 g/dL (12.0-16.0); Mean Corp Hgb Conc. 32.7 g/dL (33.0-37.0); Mean Corpuscular Volume 88.8 fL (81.0-99.0); Mean Platelet Volume 9.1 fL (7.4-10.4); Nucleated Red Blood Cells % 0 %; Platelet Count 204 10^3/uL (130-400); Red Blood Cell Count 4.27 10^6/uL (4.20-5.40); Red Cell Dist. Width 12.9 % (11.5-14.5); White Blood Cell Count 5.5 10^3/uL (4.8-10.8)
--- NOTE | 2024-03-14 12:43 | CON.NEURO4 ---
Consultation - Neurology 4
-
CONSULTING PHYSICIAN: Sharona Sepulveda
REFERRING PHYSICIAN: ER
DICTATED BY: Sharona Sepulveda
DATE/TIME OF REQUEST: 03/14/24
DATE/TIME OF CONSULTATION: 03/14/24
Reason for Consultation: Headache, blurred vision
History of Present Illness:
Patient is a 34-year-old woman with past medical history of recent Lyme disease treatment with facial palsy, ADHD, PCOS, provoked DVT, morbid obesity presented to hospital because of headache and vision changes which have been persistent since
approximately 03/11. Patient says that she made a good improvement in recovery from the facial issues and had been on doxycycline for couple of weeks which she has since finished. No recent head or neck trauma and she was feeling okay on Wednesday
last week. She woke in the morning of 03/11 and felt okay but by 11 or 12 PM noted onset of headache and by the afternoon had significant headache and also notes blurred vision in both eyes since that point which is been constant. She has not had
any fever chills nausea or vomiting. She denies phonophobia. She has significant photophobia. Denies any neck stiffness or rashes. No change in the headache with laying supine or with upright position. Patient has not noticed any intermittent
changes in the blurred vision seems rather constant since beginning. She has not had any double vision.
Patient relates a history of headaches that can lead to her needing to lay down she generally will take either ibuprofen or Tylenol with these and generally improve. She has not had any visual changes with these previous headaches. She estimates
the frequency are about 1/month she is not seeing a strong association between these headaches and her menstrual cycle. No recent medication changes. No history of unusual weight loss or malignancy.
Past Medical History: Recent treated lyme disease with bilateral facial palsy, ADHD, PCOS, History DVT associated with IV site in left arm, morbid obesity
Surgical History: Oophorectomy
Family History: Son has some headaches without nausea/vomiting, they do make him lay down and be inactive
Social History: Living at home with family, no tobacco or alcohol denies recreational drugs
Review of Symptoms:
Patient denies any fever,, chest pain, shortness of breath, GI or symptoms. Positive for headache and vision change.
Physical Exam:
Young woman seated in bed with towel over her head and eyes in dark room, morbid obesity, no trauma to head or neck, eyes clear, oropharynx clear, neck supple no masses and no meningismus, touches chin to chest without any issues, breathing
unlabored no wheezing or rales, heart rate regular, abdomen obese non tender, no lower extremity edema
Neurologic Examination:
The patient is awake, alert and oriented x 3. Good historian. She is able to follow commands and answer questions appropriately. There is no aphasia or dysarthria. On cranial nerve assessment, pupils are 3 mm bilateral, round and reactive to
light and accommodation. Unable to evaluate optic discs with patient's photophobia difficult to hold her eyes open for examination. Patient has significant photophobia, opens eyes for brief periods for EOM and visual field testing and has a lot of
discomfort with eyes open. Visual العلي are full. Extraocular movements are intact. Facial sensations are intact and bilaterally symmetrical, there is no facial asymmetry. Hearing is intact bilaterally to normal conversation volume. Tongue palate
and uvula are midline. Sternocleidomastoid strengths are full bilaterally. Motor strengths are 5/5 bilateral upper and lower extremities on medical research [place] scale. There is no drift or involuntary movement noted. Deep tendon reflexes are 2+
bilateral upper and lower extremities and Babinski is absent bilaterally. Sensations of pain, touch, temperature and vibration are intact and bilaterally symmetrical. There was no extinction noted on double simultaneous stimulation. Coordination is
intact by finger to nose bilaterally.
Neuro Imaging: CT head unremarkable, no masses, edema, hemorrhage, acute or chronic infarcts
Impressions
1. Suspicion for status migrainosus, patient with clear photophobia and headache going on for 3-4 days and migraines can be associated with blurred vision. Patient does have morbid obesity so is at risk for Idiopathic Intracranial hypertension,
her history is more consistent with migraine headache however given no positional changes in headache or intermittent visual obscurations. Differential diagnosis for new onset headache with photophobia would include pituitary pathology, cerebral
venous sinus thrombosis. 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 She had adequate treatment for Lyme disease doubt this is producing her current symptoms.
2.
3.
4.
Recommendations:
1. Aggressive treatment of probable migraine
-One 6 mg subcutaneous dose sumatriptan now, if headache still present after 1 hour repeat same dose
-Give additional 15 mg IV Toradol, 25 mg p.o. Benadryl
-Received 1 dose 10 mg IV Compazine is sufficient for now
--Consideration for small dose IV steroid and a few days of PO Prednisone if she makes good improvement and MRI imaging is reassuring
2. Check MRI of the brain with and without contrast, MRA of the head and MRV
3. Not seeing that she requires lumbar puncture without meningismus, fever or leukocytosis and non-toxic appearing. For the possible diagnosis of idiopathic intracranial hypertension a diagnostic lumbar puncture measuring opening pressure done
under IR given body habitus can be considered on an outpatient non urgent basis
Discussed patient care with: Patient, Dr Walker, ER nursing
[2024-03-14] MEDS: BENADRYL 25 MG PO (13:28)
[2024-03-14] MEDS: IMITREX 6 MG SC (13:42)
[2024-03-14 13:44] LABS: HCG, Serum Qualitative Screen Negative
[2024-03-14 13:55] LABS: ALT (SGPT) 10 U/L (0-35); AST (SGOT) 20 U/L (14-36); Albumin 3.5 g/dl (3.5-5.0); Alkaline Phosphatase 61 U/L (38-126); Blood Urea Nitrogen 10 mg/dl (7-17); Calcium 8.5 mg/dl (8.4-10.2); Carbon Dioxide 27 mmol/L (22-30); Chloride 106 mmol/L (98-107); Glucose 87 mg/dl (70-99); Potassium 3.9 mmol/L (3.5-5.1); Sodium 138 mmol/L (135-145); Total Bilirubin 0.7 mg/dl (0.2-1.3); Total Protein 6.7 g/dl (6.3-8.2); eGFR > 60.00
[2024-03-14 14:00] VITALS: BP 165/85
[2024-03-14 15:00] VITALS: BP 168/86
[2024-03-14 17:05] VITALS: BP 147/86
== END 2024-03-14 17:34 | disposition home or self-care (01) ==
LOC: EMR 10:59
PROVIDERS: Physician Assistant; EMERGENCY PHYSICIAN Emergency Medicine; FAMILY PHYSICIAN Family Medicine; OTHER PHYSICIAN Student in an Organized Health Care Education/Training Program
DX: G43.909 Migraine, unspecified, not intractable, without status migrainosus (principal); J45.909 Unspecified asthma, uncomplicated; E28.2 Polycystic ovarian syndrome; Z86.718 Personal history of other venous thrombosis and embolism
CPT/HCPCS: 99285; 96374; 96375; 96376; 96372; 70450; 70544; 80053; 84703; 85025

== ENCOUNTER 2024-05-04 14:36 | Emergency (ER) | payer OTHER, SELFPAY ==
[2024-05-04 14:40] VITALS: BP 175/107
[2024-05-04 15:26] LABS: COVID-19 Antigen Negative (Negative)
--- NOTE | 2024-05-04 15:59 | ED.GENMED ---
History of Present Illness
General
Chief Complaint: Breathing Problem
Source: patient
Exam Limitations: none
Time Seen by Provider: 05/04/24 15:25
Nursing documentation reviewed up to this point in time: agreed with
History of Present Illness
History of Present Illness:
34-year-old female with no reported past medical history (although she does have documented history of PCOS and asthma she specifically denies history of asthma to me) presents to the emergency room for evaluation of cough and shortness of breath.
Patient reports that she has been feeling unwell for the past 5 days. She reports she for started with cough and low-grade fever and symptoms have persisted throughout the week. She also has had fatigue and myalgias. She says she has had sore
throat and nasal congestion. She says that she was initially seen in urgent care earlier this week and told that she had a virus but was not started on medications instead recommended for supportive care; she has been treating fever and aches with
Tylenol but says that cough is getting worse and she has now started to feel short of breath because of her coughing fits. She is now bringing up yellowish sputum. Came to the emergency to be assessed. Denies any chest pain. Denies abdominal
pain. Denies any diarrhea; she has had a few episodes of posttussive emesis but no other vomiting. She denies any other complaints.
Past History
Past History
ED Past Medical History: Asthma and Other (ADHD, Ankle Fracture, Lyme, Cellulitis, DVT, morbid obesity); Negative HTN, Hypercholesterolemia or NIDDM
ED Past Surgical History: , Gynecological (Ovarian cyst removed. Oophorectomy thinks Left), Tonsilectomy and Other (Adenoid surgery)
Social History
Tobacco: Non-smoker
Alcohol: None
Personal: Single
Living: with family
Employment: Employed (childcare)
Review of Systems
Review of Systems
All Other Systems: ROS reviewed and negative except as documented in HPI and ROS
Constitutional: Reports fever, fatigue and chills
EENT: Reports sore throat and runny nose
Respiratory: Reports cough and trouble breathing
Cardiac: Denies chest pain or palpitations
ABD/GI: Reports vomiting (Posttussive); Denies abdominal pain, nausea or diarrhea
: Denies flank pain
Musculoskeletal: Denies neck pain or back pain
Neurological: Denies dizzy
Phy Exam
Physical Exam
Physical Exam:
General: Awake, alert, nontoxic-appearing
Head: Normocephalic, atraumatic
Eyes: Conjunctiva normal
Throat: Airway intact, handling secretions, no tonsillar enlargement, erythema or exudate
Neck: Trachea midline, no JVD
Lungs: Scattered expiratory wheezing, frequent hacking cough throughout exam; respiratory rate and work of breathing acceptable, pulse ox normal on room air
Heart: Regular rate and rhythm, no murmurs, gallops, or rubs
Neuro: No gross deficits, ambulatory
Extremities: Warm and well-perfused
Scores
Heart Failure Risk
Heart Failure Risk Score: Not Applicable
Heart Score for Chest Pain Patients
STEMI patient?: Not applicable
Withdrawal Assessment of Alcohol
Withdrawal Assessment Completed?: Not applicable
Course
Orders/Labs/Results
Orders:
Orders
05/04/24 14:46
COVID-19 Antigen Urgent
Source: Nasal Swab
05/04/24 15:26
CR Chest - 2 Views Urgent
Comment:
Reason For Exam: sob, fever
05/04/24 16:11
Albuterol [ProAIR HFA INHALER] 2 puff INH R NOW STA
Vital Signs
Initial and Last Documented VS:
Initial Vital Signs
Temp Pulse Resp BP Pulse Ox
36.9 C 77 22 175/107 95
05/04/24 14:40 05/04/24 14:40 05/04/24 14:40 05/04/24 14:40 05/04/24 14:40
Last Documented Vital Signs
Temp Pulse Resp BP Pulse Ox
36.9 C 77 22 175/107 95
05/04/24 14:40 05/04/24 14:40 05/04/24 14:40 05/04/24 14:40 05/04/24 14:40
MDM/Problems Addressed
Differential Diagnosis Includes:
Bronchitis, pneumonia, URI
MDM/Problems Addressed:
34-year-old female presents for evaluation of worsening cough and shortness of breath in the setting of viral syndrome as described above. Hypertensive but otherwise normal vitals. Physical exam as above. Suspect likely acute bronchitis based on
full clinical picture. Will check chest x-ray to rule out pneumonia. Will treat with albuterol, dexamethasone. Will reassess after the above.
Chest x-ray reviewed by me shows linear atelectasis versus pneumonia right lower lung; suspect more likely that this is acute bronchitis and likely some atelectasis although given duration of symptoms will cover with antibiotics for developing
pneumonia as well. He was given dexamethasone here, albuterol inhaler and hand, will start on Augmentin and azithromycin. Follow-up with PCP as an outpatient�no clear indication for admission to the hospital at this point. Patient was notably
hypertensive here in triage, I spoke to her about her elevated blood pressure and need to have this repeated as an outpatient; she indicated understanding and is comfortable with this plan. All questions answered.
Acute Exacerbation and/or Progression of Chronic Illness:
Acutely hypertensive
Acute Exacerbation and/or Progression of Chronic Illness: HTN
*Radiology
Radiology exam reviewed: preliminary read by ED provider and radiology read reviewed
*Pulse Oximetry
Patient hypoxic: no
*Critical Care Note
Total Time (30-74mins, 75-104mins- exclusive of procedures): Not Applicable
Data Reviewed
Source: patient and records
ED Attending Note
-
Portions of this chart may have been created with voice recognition software.� Occasional wrong word or��sound alike� substitutions may have occurred due to the inherent limitations of voice recognition software.
Discharge Plan
Departure
Patient Disposition: Home (Routine Discharge)
Date of Disposition: 05/04/24
Time of Disposition: 16:14
Patient with high blood pressure during this ER visit?: Yes
Discharge Problem:
Acute bronchitis, Hypertension
Instructions: Acute Bronchitis, Adult (DC), BLOOD PRESSURE
Prescriptions:
New
albuterol sulfate 90 mcg/actuation HFA aerosol inhaler
2 puff inhalation Q6H PRN (Reason: shortness of breath or wheezing) Qty: 6.7 0RF
azithromycin [Zithromax] 250 mg tablet
250 mg PO DAILY Qty: 4 0RF
amoxicillin-pot clavulanate 875-125 mg tablet
1 tab PO BID 7 Days Qty: 14 0RF
No Action
diphenhydramine HCl [Benadryl] 25 mg Capsule
25 mg PO DAILYPRN PRN (Reason: ALLERGIES)
ibuprofen [Advil] 200 mg Tablet
200 mg PO Q6HPRN PRN (Reason: MILD PAIN)
cholecalciferol (vitamin D3) [Vitamin D3] 25 mcg (1,000 unit) Tablet
25 mcg PO DAILY
Probiotic 10 billion cell capsule
10,000 mmu cells PO DAILY Qty: 20 0RF
Referrals:
UNKNOWN - PT DOES,NOT KNOW [Family Provider] -
Activity Restrictions/Additional Instructions:
Thank you for visiting the Emergency Department at [facility].
1. Please schedule a follow up appointment as directed. Call first thing tomorrow morning to make an appointment.
2. If indicated, please take your medications as instructed and indicated on discharge paperwork.
3. If any of your symptoms do not improve, or persist, or become more severe within 6-12 hours, please return to the emergency department for further care.
4. Please return to the emergency department if you develop a headache, neck pain/stiffness, fever greater than 100.4F, chest pain, shortness of breath, persistent nausea, vomiting, slurred speech, difficulty walking, numbness/tingling, weakness,
signs of infection or any other symptoms that are worrisome to you.
Please call [phone] if you have any questions.
Discharge Date and Time
Print Language: PAKISTANI
[2024-05-04] MEDS: ProAIR HFA INHALER 2 PUFF INH (16:29)
[2024-05-04] MEDS: ZITHROMAX 500 MG PO (16:30)
[2024-05-04] MEDS: DECADRON 10 MG PO (16:30)
[2024-05-04] MEDS: AUGMENTIN 875 MG/125 MG 1 TABLET PO (16:30)
[2024-05-04 16:35] VITALS: BP 153/93
== END 2024-05-04 16:43 | disposition home or self-care (01) ==
LOC: EMR 14:36
PROVIDERS: Student in an Organized Health Care Education/Training Program; EMERGENCY PHYSICIAN Emergency Medicine; FAMILY PHYSICIAN Family Medicine
DX: J20.9 Acute bronchitis, unspecified (principal); I10 Essential (primary) hypertension; E11.9 Type 2 diabetes mellitus without complications; J45.909 Unspecified asthma, uncomplicated; F90.9 Attention-deficit hyperactivity disorder, unspecified type; E66.01 Morbid (severe) obesity due to excess calories
CPT/HCPCS: 99283; 94640; 71046; 87811

== ENCOUNTER 2024-06-22 09:11 | Emergency (ER) | payer OTHER, SELFPAY ==
[2024-06-22 09:19] VITALS: BP 170/103
--- NOTE | 2024-06-22 09:45 | ED.GENMED ---
History of Present Illness
<JARON Peña Last Filed: 06/22/24 11:05>
General
Chief Complaint: Musculo-Skeletal Complaint
Source: patient
Exam Limitations: none
Time Seen by Provider: 06/22/24 09:45
Nursing documentation reviewed up to this point in time: agreed with
History of Present Illness
History of Present Illness:
34-year-old female past medical history of asthma, DVT, PCOS presents to the emergency department today with concerns of left ankle pain. Yesterday she was walking her dog outside in [place] when the dog pulled her and she fell down 8 steps of her
deck. Patient states that during the fall, she not hit her head, she has no neck pain or headache today. She not lose consciousness. She and subsequently fell on her left side and rolled her ankle. Patient states that since then she has had
persistent pain and swelling in the area but has been able to ambulate and bear weight. Patient denies any history of orthopedic surgeries. Patient denies any other injuries.
Past History
<JARON Peña Last Filed: 06/22/24 11:05>
Past History
ED Past Medical History: Asthma and Other (ADHD, Ankle Fracture, Lyme, Cellulitis, DVT, morbid obesity); Negative HTN, Hypercholesterolemia or NIDDM
ED Past Surgical History: , Gynecological (Ovarian cyst removed. Oophorectomy thinks Left), Tonsilectomy and Other (Adenoid surgery)
Social History
Tobacco: Non-smoker
Alcohol: None
Personal: Single
Living: with family
Employment: Employed (childcare)
Review of Systems
<JARON Peña Last Filed: 06/22/24 11:05>
Review of Systems
All Other Systems: ROS reviewed and negative except as documented in HPI and ROS
Phy Exam
<JARON Peña Last Filed: 06/22/24 11:05>
Physical Exam
Physical Exam:
General: Patient is well appearing and in no acute distress; non-toxic
Skin: Warm and dry, no rashes or lesions
Head: Normocephalic, atraumatic
Eyes: Sclera non-icteric. EOMs intact.
Cardiac: Regular rate
Peripheral Vascular: 2+ DP and PT pulse.
Pulm: Normal respiratory effort
Musculoskeletal: Swelling around the left lateral ankle. Left ankle pain with varus stress. No ligamentous instability with anterior drawer/talor tilt testing.
Neuro: CN II-XII intact, no focal neurologic deficits.
Psychiatric: Appropriate mood and affect.
Course
<Odalys Gunn PA-C - Last Filed: 06/22/24 11:05>
Orders/Labs/Results
Orders:
Orders
06/22/24 09:22
Ankle, left 3 view CR [CR Ankle - Left Min 3 Views ] Urgent
Comment:
Reason For Exam: pain and swelling after a fall
06/22/24 10:13
Air Splint Left-Treatment ONCE
Vital Signs
Initial and Last Documented VS:
Initial Vital Signs
Temp Pulse Resp BP Pulse Ox
98.1 F 77 18 170/103 98
06/22/24 09:19 06/22/24 09:19 06/22/24 09:19 06/22/24 09:19 06/22/24 09:19
Last Documented Vital Signs
Temp Pulse Resp BP Pulse Ox
98.1 F 77 18 170/103 98
06/22/24 09:19 06/22/24 09:19 06/22/24 09:19 06/22/24 09:19 06/22/24 09:19
<José Manuel Godfrey DO - Last Filed: 06/22/24 10:16>
Orders/Labs/Results
Orders:
Orders
06/22/24 09:22
Ankle, left 3 view CR [CR Ankle - Left Min 3 Views ] Urgent
Comment:
Reason For Exam: pain and swelling after a fall
06/22/24 10:13
Air Splint Left-Treatment ONCE
Vital Signs
Initial and Last Documented VS:
Initial Vital Signs
Temp Pulse Resp BP Pulse Ox
98.1 F 77 18 170/103 98
06/22/24 09:19 06/22/24 09:19 06/22/24 09:19 06/22/24 09:19 06/22/24 09:19
Last Documented Vital Signs
Temp Pulse Resp BP Pulse Ox
98.1 F 77 18 170/103 98
06/22/24 09:19 06/22/24 09:19 06/22/24 09:19 06/22/24 09:19 06/22/24 09:19
<Odalys Gunn PA-C - Last Filed: 06/22/24 11:05>
MDM/Problems Addressed
Differential Diagnosis Includes:
ddx include anterior talofibular ligament sprain, contusion, distal fibula fracture, trimalleolar fracture
MDM/Problems Addressed:
34-year-old female presents emergency department with left lateral ankle pain. Patient fell down 8 steps yesterday. Patient not hit her head during a fall or injure any other injuries. Patient has no neck pain or headache today. On exam she has
swelling localized to the left lateral ankle but no joint instability on exam. Her x-ray of the ankle was negative for any fracture. Suspect ligament strain/sprain. Will apply Jesse wrap for compression here and send patient home with Airc[employer].
Return precautions discussed. Patient stable for discharge.
Chronic conditions affecting care:
PCOS, DVT, HTN,
Acute Exacerbation and/or Progression of Chronic Illness:
n/a
<Odalys Gunn PA-C - Last Filed: 06/22/24 11:05>
*Radiology
Radiology exam reviewed: preliminary read by ED provider (no acute fracture or dislocation )
*Pulse Oximetry
Patient hypoxic: no
*Critical Care Note
Total Time (30-74mins, 75-104mins- exclusive of procedures): Not Applicable
Data Reviewed
Review of Other/Old Records Reveals: Records (reviewed previous ankle x-ray from 06/24/19)
Source: patient and records
Prescriptions/Medications Considered But Not Given:
n/a
Further Testing Considered But Not Given:
n/a
<Odalys Gunn PA-C - Last Filed: 06/22/24 11:05>
Patient Management
Escalation/DeEscalation of care consider admission/obs:
Admit not indicated, patient stable for outpatient follow up
<Odalys Gunn PA-C - Last Filed: 06/22/24 11:05>
Update Note
Update Note:
Patient states that she took Ibuprofen prior to arrival and is declining medication for pain at this time.
ED Attending Note
<Odalys Gunn PA-C - Last Filed: 06/22/24 11:05>
-
Portions of this chart may have been created with voice recognition software.� Occasional wrong word or��sound alike� substitutions may have occurred due to the inherent limitations of voice recognition software.
<José Manuel Godfrey DO - Last Filed: 06/22/24 10:16>
ED Attending Note
Patient seen and examined by attending physician: Yes
I performed the substantive portion of visit, reviewed & personally made and approve the management plan that is documented in note by myself or MARTY.: Yes
ED Attending Note:
I agree with Odalys's note.
+ ankle pain to palpation, mininal pain to palpation of lateral foot. no deformity. Pulses intact.
No fx noted on xray
Discharge Plan
Departure
Patient Disposition: Home (Routine Discharge)
Date of Disposition: 06/22/24
Time of Disposition: 10:16
Patient with high blood pressure during this ER visit?: Yes
Condition: Good
Discharge Problem:
Sprain of lateral ligament of ankle joint
Instructions: Ankle Sprain ED, BLOOD PRESSURE
Prescriptions:
No Action
diphenhydramine HCl [Benadryl] 25 mg Capsule
25 mg PO DAILYPRN PRN (Reason: ALLERGIES)
ibuprofen [Advil] 200 mg Tablet
200 mg PO Q6HPRN PRN (Reason: MILD PAIN)
cholecalciferol (vitamin D3) [Vitamin D3] 25 mcg (1,000 unit) Tablet
25 mcg PO DAILY
Probiotic 10 billion cell capsule
10,000 mmu cells PO DAILY Qty: 20 0RF
albuterol sulfate 90 mcg/actuation HFA aerosol inhaler
2 puff inhalation Q6H PRN (Reason: shortness of breath or wheezing) Qty: 6.7 0RF
azithromycin [Zithromax] 250 mg tablet
250 mg PO DAILY Qty: 4 0RF
amoxicillin-pot clavulanate 875-125 mg tablet
1 tab PO BID 7 Days Qty: 14 0RF
Activity Restrictions/Additional Instructions:
Please return to the emergency department should you experience loss of sensation in your left foot, inability to ambulate, acute worsening of the pain, pallor, or any signs or symptoms concerning to you.
Please keep the ankle elevated and apply ice and compression as needed. Please use your splint when ambulating.
Please follow-up with your primary care provider should your symptoms not improve.
Interventions
Interventions:
*Risk Screen - Suicide Last Done: 06/22/24 09:19
Discharge Date and Time
Print Language: KOREAN
== END 2024-06-22 10:19 | disposition home or self-care (01) ==
LOC: EMR 09:11
PROVIDERS: EMERGENCY PHYSICIAN Emergency Medicine; FAMILY PHYSICIAN Family Medicine
DX: S93.402A Sprain of unspecified ligament of left ankle, initial encounter (principal); W10.9XXA Fall (on) (from) unspecified stairs and steps, initial encounter; I10 Essential (primary) hypertension
CPT/HCPCS: 99283; 73610

== ENCOUNTER 2024-07-17 17:17 | Emergency (ER) | payer OTHER, SELFPAY ==
[2024-07-17 17:23] VITALS: BP 189/91
--- NOTE | 2024-07-17 17:23 | ED.GENMED ---
ED Provider Triage
<Linda Quinn ROBOTICS APPLICATION ENGINEER - Last Filed: 07/17/24 17:30>
-
Patient seen by provider in Triage?: Seen in Triage
Attestation: A medical screening examination has been initiated by a qualified medical provider. Based on the assessment performed at this time, it has been determined that an emergent medical condition may exist and the patient has been informed
that further medical evaluation and possible additional diagnostic testing may be needed.
HPI: 34-year-old female states 'half of my face is numb' (right side) since yesterday, burning itching rash on upper chest and face. Face feels hot. Has a general headache 04/05 took Advil 400 mg 1.5 hours ago with some relief. Denies dental pain.
Hx Lyme disease in January 2024
GENERAL: Alert , in no apparent distress
EYE: No visual abnormalities.
ENT: No visible abnormalities.
LUNGS: No acute respiratory distress
NEUROLOGICAL: Alert and oriented
SKIN: Skin intact. Smooth erythema upper chest and both cheeks.
MUSCULOSKELETAL: Moving extremities normally
PSYCH: Normal and appropriate interaction.
This is a medical evaluation conducted in person to initiate diagnostic evaluation and provide initial therapeutics. Please see further documentation by the treating clinician.
History of Present Illness
<Linda Quinn ROBOTICS APPLICATION ENGINEER - Last Filed: 07/17/24 17:30>
General
Chief Complaint: Numbness
Time Seen by Provider: 07/17/24 22:00
<JONATHON Ceja - Last Filed: 07/18/24 06:38>
General
Source: patient
Nursing documentation reviewed up to this point in time: agreed with
History of Present Illness
History of Present Illness:
Patient is a 34 yo female with a PMH of PCOS, who presented to the ED for R sided facial droop and burning that began 1 day ago. She states that its a burning sensations and that her right side of her face feels weak and droopy. She admits to a
prior event that occurred in January of this year. She stated that the symptoms are exactly the same. The last event was precipitated by a confirmed lyme infection for which she recieved treatment. She also admits to her chest rash with a similar
burning sensation that began at the same time. She also admitted to a headache, but stated that the prior episode also began with the onset of a headache as well. She denied any fever, chills, vision changes, limp paresthesias, tinnitis, anosmia, UE
or LE weakness, or recent sickness.
She has a PMH of lyme disease which was treated in January of this year and is currently managed by I&D at [facility]. She recieved a full workup during that visit including a negative brain MRI and CT scan.
Past History
<Linda Quinn NP - Last Filed: 07/17/24 17:30>
Past History
ED Past Medical History: Asthma and Other (ADHD, Ankle Fracture, Lyme, Cellulitis, DVT, morbid obesity); Negative HTN, Hypercholesterolemia or NIDDM
ED Past Surgical History: , Gynecological (Ovarian cyst removed. Oophorectomy thinks Left), Tonsilectomy and Other (Adenoid surgery)
Social History
Tobacco: Non-smoker
Alcohol: None
Personal: Single
Living: with family
Employment: Employed (childcare)
Phy Exam
<JONATHON Ceja - Last Filed: 07/18/24 06:38>
General Physical Exam
General Presentation: well appearing and no apparent distress
Eye Exam
Eye Exam: PERRL and EOMI
Cardiovascular Exam
Cardiovascular Exam: regular rate/rhythm, no edema, no gallop, no murmur and normal peripheral pulses
Pulmonary Exam
Pulmonary Exam: lungs clear, no respiratory distress, no rales, no crackles, no wheezing and no cough
Neurological Exam
Neurological Exam: alert, oriented x3 and other (Right facial sensation to light touch is absent. Patient cannot wrinkle forehead on either side. Smiling demonstrates a mild left side droop. )
Musculoskeletal Exam
Musculoskeletal Exam: full ROM
Skin Exam
Skin Exam: warm/dry and other (chest erythema noted around the neck and anterior chest )
Course
<Linda Quinn ROBOTICS APPLICATION ENGINEER - Last Filed: 07/17/24 17:30>
Orders/Labs/Results
Orders:
Orders
07/17/24 17:36
Complete Blood Count/With Diff Urgent
Comprehensive Metabolic Panel Urgent
Lyme Progressive Urgent
Comment: ADD ON
07/17/24 22:55
Add On- LAB Urgent
Tests Added?: lyme IgG, IgM
07/17/24 22:56
Amoxicillin [Amoxil] 500 mg PO NOW STA
Prednisone [Deltasone] 50 mg PO NOW STA
07/17/24 17:36
07/17/24 17:36
Vital Signs
Initial and Last Documented VS:
Initial Vital Signs
Temp Pulse Resp BP Pulse Ox
99.3 F 85 16 189/91 99
07/17/24 17:23 07/17/24 17:23 07/17/24 17:23 07/17/24 17:23 07/17/24 17:23
Last Documented Vital Signs
Temp Pulse Resp BP Pulse Ox
97.9 F 68 18 182/98 99
07/17/24 21:15 07/17/24 21:15 07/17/24 21:15 07/17/24 21:15 07/17/24 21:15
<JONATHON Ceja - Last Filed: 07/18/24 06:38>
Orders/Labs/Results
Orders:
Orders
07/17/24 17:36
Complete Blood Count/With Diff Urgent
Comprehensive Metabolic Panel Urgent
Lyme Progressive Urgent
Comment: ADD ON
07/17/24 22:55
Add On- LAB Urgent
Tests Added?: lyme IgG, IgM
07/17/24 22:56
Amoxicillin [Amoxil] 500 mg PO NOW STA
Prednisone [Deltasone] 50 mg PO NOW STA
07/17/24 17:36
07/17/24 17:36
Vital Signs
Initial and Last Documented VS:
Initial Vital Signs
Temp Pulse Resp BP Pulse Ox
99.3 F 85 16 189/91 99
07/17/24 17:23 07/17/24 17:23 07/17/24 17:23 07/17/24 17:23 07/17/24 17:23
Last Documented Vital Signs
Temp Pulse Resp BP Pulse Ox
97.9 F 68 18 182/98 99
07/17/24 21:15 07/17/24 21:15 07/17/24 21:15 07/17/24 21:15 07/17/24 21:15
<Donato Doyle, DO - Last Filed: 07/17/24 23:01>
Orders/Labs/Results
Orders:
Orders
07/17/24 17:36
Complete Blood Count/With Diff Urgent
Comprehensive Metabolic Panel Urgent
Lyme Progressive Urgent
Comment: ADD ON
07/17/24 22:55
Add On- LAB Urgent
Tests Added?: lyme IgG, IgM
07/17/24 22:56
Amoxicillin [Amoxil] 500 mg PO NOW STA
Prednisone [Deltasone] 50 mg PO NOW STA
07/17/24 17:36
07/17/24 17:36
Vital Signs
Initial and Last Documented VS:
Initial Vital Signs
Temp Pulse Resp BP Pulse Ox
99.3 F 85 16 189/91 99
07/17/24 17:23 07/17/24 17:23 07/17/24 17:23 07/17/24 17:23 07/17/24 17:23
Last Documented Vital Signs
Temp Pulse Resp BP Pulse Ox
97.9 F 68 18 182/98 99
07/17/24 21:15 07/17/24 21:15 07/17/24 21:15 07/17/24 21:15 07/17/24 21:15
<JONATHON Ceja - Last Filed: 07/18/24 06:38>
MDM/Problems Addressed
Differential Diagnosis Includes:
lyme disease, stroke, post infectious inflammatory response
<JONATHON Ceja - Last Filed: 07/18/24 06:38>
*Critical Care Note
Total Time (30-74mins, 75-104mins- exclusive of procedures): Not Applicable
ED Attending Note
<Linda Quinn NP - Last Filed: 07/17/24 17:30>
-
Portions of this chart may have been created with voice recognition software.� Occasional wrong word or��sound alike� substitutions may have occurred due to the inherent limitations of voice recognition software.
<Donato Doyle DO - Last Filed: 07/17/24 23:01>
ED Attending Note
Patient seen and examined by attending physician: Yes
I performed the substantive portion of visit, reviewed & personally made and approve the management plan that is documented in note by myself or MARTY.: Yes
ED Attending Note:
Seen with ROBOTICS APPLICATION ENGINEER student recurrent right facial numbness, history of Lyme treated with 3 course of antibiotics followed at [facility]
No headache here nontoxic will check IgG IgM, will try to get local follow-up with PCP and ID
Discharge Plan
Departure
Patient Disposition: Home (Routine Discharge)
Date of Disposition: 07/17/24
Time of Disposition: 22:57
Patient with high blood pressure during this ER visit?: No
Condition: Good
Discharge Problem:
Gonsales's palsy
Instructions: Gonsales's Palsy (DC)
Prescriptions:
New
amoxicillin 500 mg tablet
500 mg PO Q8H Qty: 30 0RF
prednisone 50 mg tablet
50 mg PO DAILY Qty: 5 0RF
valacyclovir [Valtrex] 1 gram tablet
1,000 mg PO BID 7 Days Qty: 14 0RF
No Action
diphenhydramine HCl [Benadryl] 25 mg Capsule
25 mg PO DAILYPRN PRN (Reason: ALLERGIES)
ibuprofen [Advil] 200 mg Tablet
200 mg PO Q6HPRN PRN (Reason: MILD PAIN)
cholecalciferol (vitamin D3) [Vitamin D3] 25 mcg (1,000 unit) Tablet
25 mcg PO DAILY
Probiotic 10 billion cell capsule
10,000 mmu cells PO DAILY Qty: 20 0RF
albuterol sulfate 90 mcg/actuation HFA aerosol inhaler
2 puff inhalation Q6H PRN (Reason: shortness of breath or wheezing) Qty: 6.7 0RF
azithromycin [Zithromax] 250 mg tablet
250 mg PO DAILY Qty: 4 0RF
amoxicillin-pot clavulanate 875-125 mg tablet
1 tab PO BID 7 Days Qty: 14 0RF
Referrals:
UNKNOWN - PT DOES,NOT KNOW [Unknown Provider] -
Nelly Albert MD [Active] - Next open appointment
Activity Restrictions/Additional Instructions:
Call [facility] to arrange follow-up care or follow-up at [facility]
Take medications as prescribed
Buy saline eyedrops and eye lubricant to use at nighttime
Interventions
Interventions:
*Risk Screen - Suicide Last Done: 07/17/24 17:23
*General Assessment Last Done: 07/17/24 17:23
*Neglect/Abuse Screening Last Done: 07/17/24 17:23
*Nursing Disposition Last Done: 07/17/24 23:29
ED- Neurological Assessment Last Done: 07/17/24 21:18
Discharge Date and Time
Discharge Date/Time: 07/17/24 23:30
Print Language: TUNISIAN
[2024-07-17 17:45] LABS: % Basophils 0.4 % (0-2); % Eosinophils 0.7 % (0-6); % Immature Granulocytes 0.1 % (0-0.5); % Lymphocytes 26.5 % (20.5-51.1); % Monocytes 7.4 % (1.7-9.3); % Neutrophils 64.9 % (42.2-75.2); Absolute Eosinophils 0.1 10^3/uL (0-0.7); Absolute Lymphocytes 2.2 10^3/uL (1.2-3.4); Absolute Monocytes 0.6 10^3/uL (0.1-0.6); Absolute Neutrophils 5.3 10^3/uL (1.4-6.5); Hematocrit 38.5 % (37.0-47.0); Hemoglobin 12.8 g/dL (12.0-16.0); Mean Corp Hgb Conc. 33.2 g/dL (33.0-37.0); Mean Corpuscular Hgb 29.2 pg (27.0-31.0); Mean Corpuscular Volume 87.7 fL (81.0-99.0); Mean Platelet Volume 9.1 fL (7.4-10.4); Nucleated Red Blood Cells % 0 %; Platelet Count 203 10^3/uL (130-400); Red Blood Cell Count 4.39 10^6/uL (4.20-5.40); Red Cell Dist. Width 12.9 % (11.5-14.5); White Blood Cell Count 8.1 10^3/uL (4.8-10.8)
[2024-07-17 17:58] LABS: ALT (SGPT) 15 U/L (0-35); AST (SGOT) 20 U/L (14-36); Albumin 4.2 g/dl (3.5-5.0); Alkaline Phosphatase 53 U/L (38-126); Blood Urea Nitrogen 13 mg/dl (7-17); Carbon Dioxide 24 mmol/L (22-30); Chloride 106 mmol/L (98-107); Glucose 92 mg/dl (70-99); Potassium 3.7 mmol/L (3.5-5.1); Sodium 143 mmol/L (135-145); Total Bilirubin 0.3 mg/dl (0.2-1.3); Total Protein 7.4 g/dl (6.3-8.2); eGFR > 60.00
[2024-07-17 21:14] VITALS: BMI 66.9
[2024-07-17 21:15] VITALS: BP 182/98
[2024-07-17] MEDS: DELTASONE 50 MG PO (23:25)
[2024-07-17] MEDS: AMOXIL 500 MG PO (23:25)
[2024-07-20 14:57] LABS: Lyme Antibody Screen, EIA Presump. Positive (Negative)
== END 2024-07-17 23:30 | disposition home or self-care (01) ==
LOC: EMR 17:17
PROVIDERS: Registered Nurse; EMERGENCY PHYSICIAN Emergency Medicine; FAMILY PHYSICIAN Family Medicine
DX: G51.0 Bell's palsy (principal)
CPT/HCPCS: 99283; 80053; 85025; 86617; 86618

== ENCOUNTER 2024-08-09 06:37 | Day surgery (SDC) | payer OTHER, SELFPAY ==
[2024-08-09 12:35] VITALS: BMI 65.8
[2024-08-09 12:36] VITALS: BP 149/82; BMI 65.8
[2024-08-09 15:17] VITALS: BP 149/82; BP 156/98
[2024-08-09 15:30] VITALS: BP 165/78
[2024-08-09 15:45] VITALS: BP 167/94
[2024-08-09 16:00] VITALS: BP 169/98
== END 2024-08-09 16:52 | disposition home or self-care (01) ==
LOC: SDS 06:37
PROVIDERS: ATTENDING PHYSICIAN Internal Medicine Gastroenterology
DX: K64.8 Other hemorrhoids (principal); R19.4 Change in bowel habit; K57.30 Diverticulosis of large intestine without perforation or abscess without bleeding; K31.89 Other diseases of stomach and duodenum; R12 Heartburn
CPT/HCPCS: 45380; 43239; 88305; 88342

== ENCOUNTER 2024-08-10 14:22 | Inpatient (IN) | payer OTHER, SELFPAY ==
[2024-08-10 10:17] VITALS: BP 155/113
[2024-08-10 10:19] VITALS: BP 155/113
[2024-08-10 10:39] VITALS: BP 157/103
--- NOTE | 2024-08-10 10:42 | ED.GENMED ---
History of Present Illness
<Charisse Chiu PA-C - Last Filed: 08/10/24 15:37>
General
Chief Complaint: Chest Problem
Source: patient
Time Seen by Provider: 08/10/24 10:14
History of Present Illness
History of Present Illness:
34yoF with a history of hypertension, obesity, and migraine presenting via EMS for evaluation of multiple complaints. Patient had an EGD and colonoscopy yesterday and underwent general anesthesia. When she returned home, she noticed that her left
eye was bloodshot. She woke up this morning around 3:45am and noticed chest and bilateral shoulder discomfort. She reports pain radiating throughout the chest. She is also having right arm pain in the location of where she had a midline placed
yesterday. Additionally, she reports decreased vision from her left eye that she noticed when she woke up today. She states the only thing she is able to see is light and shadows. She denies any eye pain or foreign body sensation. She does have a
slight headache currently.
Past History
<Charisse Chiu PA-C - Last Filed: 08/10/24 15:37>
Past History
ED Past Medical History: Asthma and Other (ADHD, Ankle Fracture, Lyme, Cellulitis, DVT, morbid obesity); Negative HTN, Hypercholesterolemia or NIDDM
ED Past Surgical History: , Gynecological (Ovarian cyst removed. Oophorectomy thinks Left), Tonsilectomy and Other (Adenoid surgery)
Social History
Tobacco: Non-smoker
Alcohol: None
Personal: Single
Living: with family
Employment: Employed (childcare)
Phy Exam
<Charisse Chiu PA-C - Last Filed: 08/10/24 15:37>
General Physical Exam
General Presentation: well appearing and no apparent distress
General age: appears stated age
General Skin: warm and dry
General Habitus: normal
General Mental: alert
Eye Exam
Eye Exam: PERRL, EOMI and other (Subconjunctival hemorrhaged noted to L eye. PERRL. EOMs. Patient only able to see light perception in L eye. She is unable to count fingers or see eye chart.)
Cardiovascular Exam
Cardiovascular Exam: regular rate/rhythm and no murmur
Pulmonary Exam
Pulmonary Exam: lungs clear, no respiratory distress, no rales, no crackles, no rhonchi and no wheezing
Neurological Exam
Neurological Exam: alert
[place] Coma Scale
Eye Opening: Spontaneous
Verbal Response: Oriented
Motor Response: Obeys Commands
GCS Total Score: 15
Skin Exam
Skin Exam: normal color and warm/dry
Psychiatric Exam
Psychiatric Exam: normal mood/affect
<Shar Carmen MD - Last Filed: 08/10/24 15:56>
[place] Coma Scale
GCS Total Score: 15
Course
<Charisse Chiu PA-C - Last Filed: 08/10/24 15:37>
Orders/Labs/Results
Orders:
Orders
08/10/24 10:15
Electrocardiogram (*1) Urgent
Reason for Study: Chest Pain
EKG- Treatment ONCE
08/10/24 10:33
CR Chest - 2 Views Urgent
Comment:
Reason For Exam: CP
08/10/24 10:40
Complete Blood Count/With Diff Urgent
Erythrocyte Sed Rate Urgent
Comment: ADD ON
Troponin I Urgent
08/10/24 10:49
CT Head & Neck Angio W/wo IV Urgent
Comment:
Reason For Exam: L eye visual disturbance
08/10/24 10:59
KARMEN, IgG Reflex to HEp-2 [S] Urgent
Basic Metabolic Panel Urgent
C-Reactive Protein Urgent
Comment: ADD ON
Ferritin Urgent
Comment: ADD ON
Folate Urgent
Comment: ADD ON
TSH Reflex To Free T4 Urgent
Comment: ADD ON
Vitamin B12 Urgent
Comment: ADD ON
08/10/24 11:40
Test Result ONCE
08/10/24 11:45
Urine,Hcg qualitative screen [HCG, Urine Qualitative Screen] Urgent
Date Specimen was Collected: 08/10/24
Time Specimen was Collected: 11:40
08/10/24 11:46
Diphenhydramine [Benadryl] 25 mg IV NOW STA
Magnesium Sulfate 2 Gram/50 ml [Magnesium Sulfate] 2 gram in 50 ml IV NOW
Metoclopramide [Reglan] 10 mg IV NOW STA
Rizatriptan Orally Disintegrat [Maxalt Detention Deputy (Orally Disintegrating)] 10 mg PO ONCE ONE
08/10/24 11:48
0.9% Sodium Chloride 1000 ml [Nss] 1,000 ml IV BOLUS
Ketorolac [Toradol] 15 mg IV NOW STA
08/10/24 11:49
Periph Venous Upr Ext Right US [US Periph Venous UPPER Ext RT] Urgent
Comment:
Reason For Exam: R arm pain, recent IV placement
08/10/24 13:51
MethylPREDNISolone. [Solu-Medrol] 1,000 mg 0.9% Sodium Chloride 250 ml [Nss] 250 ml IV NOW
08/10/24 13:52
MR Brain W/o & With Contrast Routine
Comment:
Reason For Exam: Optic neuritis; special attention left eye
Recent pill cam endoscopy?: No
08/10/24 13:53
Add On- LAB Routine
Comments:: Please add to today's labs or draw as routine
Tests Added?: TSH reflex, Ferritin, Folate, Vit. B12, ESR, KARMEN, CRP
Lorazepam [Ativan] 1 mg PO NOW STA
08/10/24 14:15
Admit/Transfer Patient As Directed
Co-Sign Provider:
Level of Care: Inpatient admission
Assign to:: Medical/Surgical
Physician / Group: red
Diagnosis: optic neuritis
Reason for Hospitalization: optic neuritis
Expected length of stay greater than two midnights?: Yes
ELOS- Estimated Length of Stay in days: 3
I certify the patient meets the requirements for IP care: Yes
PRN Pain Medication Management As Directed
May give lesser potent ordered pain med per pt: Yes
preference::
Protocol:: Medication orders for pain may be administered in a
manner that supports deferring to patient preference
when the pt is:
- Requesting an ordered lesser potent pain medication.
Least to most potent pain medications are defined
as: acetaminophen < NSAID < tramadol < opioids
(morphine, oxycodone, hydromorphone).
- Requesting a lesser dose of the same medication IF
ORDERED.
- Requesting a less intrusive route of administration
if both routes are prescribed by the provider (PO <
IV).
08/10/24 14:17
Code Status As Directed
Resuscitation Status: Full Code
08/10/24 14:45
LFT [[id number]] Urgent
Potassium Urgent
08/10/24 22:00
Famotidine [Pepcid] 20 mg PO HS
08/11/24 08:00
MethylPREDNISolone. [Solu-Medrol] 1,000 mg 0.9% Sodium Chloride 250 ml [Nss] 250 ml IV Q24H
Abnormal Lab Results
08/10/24 08/10/24
10:40 10:59
Absolute Neuts (auto) 6.8 H 10^3/uL
(1.4-6.5)
Neutrophils % 75.7 H %
(42.2-75.2)
Lymphocytes % 17.6 L %
(20.5-51.1)
ESR 43 H mm/hour
(0-20)
Glucose 106 H mg/dl
(70-99)
C-Reactive Protein 11.60 H mg/L
(0.0-10.00)
08/10/24 10:40
08/10/24 10:59
Vital Signs
Initial and Last Documented VS:
Initial Vital Signs
Temp Pulse Resp BP Pulse Ox
98.1 F 75 14 155/113 100
08/10/24 10:17 08/10/24 10:17 08/10/24 10:17 08/10/24 10:17 08/10/24 10:17
Last Documented Vital Signs
Temp Pulse Resp BP Pulse Ox
98.1 F 77 23 157/103 98
08/10/24 10:17 08/10/24 15:46 08/10/24 15:46 08/10/24 10:39 08/10/24 15:46
<Shar Carmen MD - Last Filed: 08/10/24 15:56>
Orders/Labs/Results
Orders:
Orders
08/10/24 10:15
Electrocardiogram (*1) Urgent
Reason for Study: Chest Pain
EKG- Treatment ONCE
08/10/24 10:33
CR Chest - 2 Views Urgent
Comment:
Reason For Exam: CP
08/10/24 10:40
Complete Blood Count/With Diff Urgent
Erythrocyte Sed Rate Urgent
Comment: ADD ON
Troponin I Urgent
08/10/24 10:49
CT Head & Neck Angio W/wo IV Urgent
Comment:
Reason For Exam: L eye visual disturbance
08/10/24 10:59
KARMEN, IgG Reflex to HEp-2 [S] Urgent
Basic Metabolic Panel Urgent
C-Reactive Protein Urgent
Comment: ADD ON
Ferritin Urgent
Comment: ADD ON
Folate Urgent
Comment: ADD ON
TSH Reflex To Free T4 Urgent
Comment: ADD ON
Vitamin B12 Urgent
Comment: ADD ON
08/10/24 11:40
Test Result ONCE
08/10/24 11:45
Urine,Hcg qualitative screen [HCG, Urine Qualitative Screen] Urgent
Date Specimen was Collected: 08/10/24
Time Specimen was Collected: 11:40
08/10/24 11:46
Diphenhydramine [Benadryl] 25 mg IV NOW STA
Magnesium Sulfate 2 Gram/50 ml [Magnesium Sulfate] 2 gram in 50 ml IV NOW
Metoclopramide [Reglan] 10 mg IV NOW STA
Rizatriptan Orally Disintegrat [Maxalt Detention Deputy (Orally Disintegrating)] 10 mg PO ONCE ONE
08/10/24 11:48
0.9% Sodium Chloride 1000 ml [Nss] 1,000 ml IV BOLUS
Ketorolac [Toradol] 15 mg IV NOW STA
08/10/24 11:49
Periph Venous Upr Ext Right US [US Periph Venous UPPER Ext RT] Urgent
Comment:
Reason For Exam: R arm pain, recent IV placement
08/10/24 13:51
MethylPREDNISolone. [Solu-Medrol] 1,000 mg 0.9% Sodium Chloride 250 ml [Nss] 250 ml IV NOW
08/10/24 13:52
MR Brain W/o & With Contrast Routine
Comment:
Reason For Exam: Optic neuritis; special attention left eye
Recent pill cam endoscopy?: No
08/10/24 13:53
Add On- LAB Routine
Comments:: Please add to today's labs or draw as routine
Tests Added?: TSH reflex, Ferritin, Folate, Vit. B12, ESR, KARMEN, CRP
Lorazepam [Ativan] 1 mg PO NOW STA
08/10/24 14:15
Admit/Transfer Patient As Directed
Co-Sign Provider:
Level of Care: Inpatient admission
Assign to:: Medical/Surgical
Physician / Group: red
Diagnosis: optic neuritis
Reason for Hospitalization: optic neuritis
Expected length of stay greater than two midnights?: Yes
ELOS- Estimated Length of Stay in days: 3
I certify the patient meets the requirements for IP care: Yes
PRN Pain Medication Management As Directed
May give lesser potent ordered pain med per pt: Yes
preference::
Protocol:: Medication orders for pain may be administered in a
manner that supports deferring to patient preference
when the pt is:
- Requesting an ordered lesser potent pain medication.
Least to most potent pain medications are defined
as: acetaminophen < NSAID < tramadol < opioids
(morphine, oxycodone, hydromorphone).
- Requesting a lesser dose of the same medication IF
ORDERED.
- Requesting a less intrusive route of administration
if both routes are prescribed by the provider (PO <
IV).
08/10/24 14:17
Code Status As Directed
Resuscitation Status: Full Code
08/10/24 14:45
LFT [Czbfz-Cchc-Hhzathy] Urgent
Potassium Urgent
08/10/24 22:00
Famotidine [Pepcid] 20 mg PO HS
08/11/24 08:00
MethylPREDNISolone. [Solu-Medrol] 1,000 mg 0.9% Sodium Chloride 250 ml [Nss] 250 ml IV Q24H
Abnormal Lab Results
08/10/24 08/10/24
10:40 10:59
Absolute Neuts (auto) 6.8 H 10^3/uL
(1.4-6.5)
Neutrophils % 75.7 H %
(42.2-75.2)
Lymphocytes % 17.6 L %
(20.5-51.1)
ESR 43 H mm/hour
(0-20)
Glucose 106 H mg/dl
(70-99)
C-Reactive Protein 11.60 H mg/L
(0.0-10.00)
08/10/24 10:40
08/10/24 10:59
Vital Signs
Initial and Last Documented VS:
Initial Vital Signs
Temp Pulse Resp BP Pulse Ox
98.1 F 75 14 155/113 100
08/10/24 10:17 08/10/24 10:17 08/10/24 10:17 08/10/24 10:17 08/10/24 10:17
Last Documented Vital Signs
Temp Pulse Resp BP Pulse Ox
98.1 F 77 23 157/103 98
08/10/24 10:17 08/10/24 15:46 08/10/24 15:46 08/10/24 10:39 08/10/24 15:46
<Charisse Chiu PA-C - Last Filed: 08/10/24 15:37>
MDM/Problems Addressed
Differential Diagnosis Includes:
34yoF here with multiple complaints including chest pain and painless L eye vision loss that started this morning when she woke up. Underwent general anesthesia yesterday for EGD/colonoscopy. Patient is hypertensive with otherwise normal vital
signs. Left subconjunctival hemorrhage noted. Patient only has perception to light in the left eye and is unable to count fingers. Differential diagnosis includes but is not limited to: Optic neuritis, retinal issue, migraine, less likely CVA
Initial ED plan: Check cardiac labs, EKG, chest x-ray, and venous duplex of RUE. Will obtain CTA head/neck. Unclear if vision loss is primary neurologic versus ophthalmologic etiology. Will discuss with both neurology and ophthalmology. Patient
out of the window for TNK although clinical suspicion for CVA is relatively low.
<Charisse Chiu PA-C - Last Filed: 08/10/24 15:37>
*EKG
Interpreted by ED Provider?: Yes
EKG Intrepretation Date: 08/10/24
Heart Rate: 69
Rate: normal
Rhythm: sinus
[place]: normal axis
Interval: normal interval
QRS Pattern: normal QRS
Ischemia: no ischemia
*Critical Care Note
Total Time (30-74mins, 75-104mins- exclusive of procedures): Not Applicable
<Charisse Chiu PA-C - Last Filed: 08/10/24 15:37>
Update Note
Update Note:
EKG shows normal sinus rhythm without ischemic changes and troponin is normal. Chest x-ray clear. CTA head/neck is negative for acute findings. Case was discussed with neurology (Dr. Vazquez) and ophthalmology (Dr. Prince Bridges). Patient was
given a migraine cocktail per neurology recommendations without improvement in her vision. Clinical concern for optic neuritis based on my discussion with both specialists. Offered to transfer patient to [facility] as ophthalmology is unable to see
her here at [facility]. Patient declines transfer and would like to stay here if possible. Plan for inpatient neuro evaluation with MRI/LP and initiation of IV steroids. Ophthalmology able to see patient either Wednesday or Wednesday in the office
after neuro evaluation is complete.
ED Attending Note
<Charisse Chiu PA-C - Last Filed: 08/10/24 15:37>
-
Portions of this chart may have been created with voice recognition software.� Occasional wrong word or��sound alike� substitutions may have occurred due to the inherent limitations of voice recognition software.
<Shar Carmen MD - Last Filed: 08/10/24 15:56>
ED Attending Note
I performed the substantive portion of visit, reviewed & personally made and approve the management plan that is documented in note by myself or MARTY.: Yes
ED Attending Note:
History and exam concerning for acute left eye visual loss, along with other nonspecific complaints, chest pain/shoulder pain.
CT without any acute findings. Patient evaluated in ED by neurology, Dr. Vazquez, who recommends admission to the hospital for further evaluation and treatment, including MRI brain and symptomatic treatment, i.e. migraine headache. As such, patient
will be admitted to hospitalist service for further evaluation and treatment.
Discharge Plan
Departure
Patient Disposition: Admit
Date of Disposition: 08/10/24
Time of Disposition: 14:06
Presentation/result/management discussed w/ accepting MD/DO: Hospitalist
Discharge Problem:
Vision loss of left eye, Chest pain
Interventions
Interventions:
*Risk Screen - Suicide Last Done: 08/10/24 10:17
*General Assessment Last Done: 08/10/24 10:17
*Neglect/Abuse Screening Last Done: 08/10/24 10:17
ED- Fall Risk Assessment Last Done: 08/10/24 10:17
*ED COVID-19 Vaccine History Last Done: 08/10/24 10:17
ED- Cardiac Assessment Last Done: 08/10/24 10:28
ED- Pulmonary Assessment Last Done: 08/10/24 10:28
[2024-08-10 10:50] LABS: % Basophils 0.1 % (0-2); % Immature Granulocytes 0.3 % (0-0.5); % Lymphocytes 17.6 % (20.5-51.1); % Monocytes 6.3 % (1.7-9.3); % Neutrophils 75.7 % (42.2-75.2); Absolute Lymphocytes 1.6 10^3/uL (1.2-3.4); Absolute Monocytes 0.6 10^3/uL (0.1-0.6); Absolute Neutrophils 6.8 10^3/uL (1.4-6.5); Hematocrit 41.2 % (37.0-47.0); Hemoglobin 13.8 g/dL (12.0-16.0); Mean Corp Hgb Conc. 33.5 g/dL (33.0-37.0); Mean Corpuscular Hgb 29.7 pg (27.0-31.0); Mean Corpuscular Volume 88.6 fL (81.0-99.0); Mean Platelet Volume 8.7 fL (7.4-10.4); Nucleated Red Blood Cells % 0 %; Platelet Count 227 10^3/uL (130-400); Red Blood Cell Count 4.65 10^6/uL (4.20-5.40); Red Cell Dist. Width 12.4 % (11.5-14.5)
[2024-08-10 11:40] LABS: Troponin I < 0.012 ng/ml
[2024-08-10 11:51] LABS: Blood Urea Nitrogen 13 mg/dl (7-17); Calcium 9.3 mg/dl (8.4-10.2); Carbon Dioxide 26 mmol/L (22-30); Chloride 103 mmol/L (98-107); Glucose 106 mg/dl (70-99); Sodium 140 mmol/L (135-145); eGFR > 60.00
[2024-08-10] MEDS: BENADRYL 25 MG IV (11:58)
[2024-08-10] MEDS: TORADOL 15 MG IV (11:59)
[2024-08-10] MEDS: REGLAN 10 MG IV (11:59)
[2024-08-10 12:00] LABS: HCG, Urine Qualitative Screen Negative
[2024-08-10] MEDS: NSS 1000 IV (12:02)
[2024-08-10] MEDS: MAGNESIUM SULFATE 50 IV (12:03)
[2024-08-10] MEDS: MAXALT MLT (ORALLY DISINTEGRATING) 10 MG PO (12:26)
--- NOTE | 2024-08-10 13:18 | CON.NEURO4 ---
Addendum entered and electronically signed by Dragan Vazquez MD 08/10/24 15:49:
Studies reviewed.
I have personally examined the patient. I reviewed and agree with the CONDENSER WINDER's Note.
My addenda:
Awake, alert, interactive. No acute distress.
Speech intact.
Follows 2-step requests w/o difficulty. No tremor.
Extra-ocular movements grossly intact.
Facial movements full and symmetric. Hearing intact to normal conversational volume.
Normal UE movements bilaterally.
Neck: full ROM.
Chest: no dyspnea
Heart: no JVD
Ext: (-) Clubbing, (-) Cyanosis, (-) Edema
IMPRESSIONS/RECOMMENDATIONS:
Abrupt onset of left eye visual loss
Differential diagnosis includes optic neuritis, migraine with aura, idiopathic intracranial hypertension (less likely as the patient is experiencing an asymmetric visual loss), retinal detachment, functional neurological disorder
Agree with ophthalmologic evaluation of this patient to ensure no retinal abnormality
Based on the possibility of optic neuritis, initiate methylprednisolone 1 g IV daily x 3 or 5 days
Check MRI of brain with and without contrast with special attention to the optic nerves
Lumbar puncture by interventional radiology, also to obtain opening pressure
Provide rizatriptan when blood pressure is lowered
D/W patient / family
Will continue to follow patient.
Original Note:
Consultation - Neurology 4
-
CONSULTING PHYSICIAN: Dragan Vazquez MD
REFERRING PHYSICIAN: SAMIRA/Charisse Chiu PA-C
DICTATED BY: JANESSA Hdz
DATE/TIME OF REQUEST: 08/10/24
DATE/TIME OF CONSULTATION: 08/10/24
Reason for Consultation: Left eye vision loss and pain
History of Present Illness:
This is a 34-year-old right-handed female who has presented to the hospital with report of acute left eye vision loss. Patient has been evaluated by our inpatient Neurology service twice this year, first for facial drooping in 01/2024 at which point
she was treated for positive Lyme/RMSF testing, and then again in February 2024 for headache associated with bilateral eye blurry vision.
From previous evaluation by Dr. Sepulveda on 03/14/24:
'Patient is a 34-year-old woman with past medical history of recent Lyme disease treatment with facial palsy, ADHD, PCOS, provoked DVT, morbid obesity presented to hospital because of headache and vision changes which have been persistent since
approximately 03/11. Patient says that she made a good improvement in recovery from the facial issues and had been on doxycycline for couple of weeks which she has since finished. No recent head or neck trauma and she was feeling okay on Wednesday
last week. She woke in the morning of 03/11 and felt okay but by 11 or 12 PM noted onset of headache and by the afternoon had significant headache and also notes blurred vision in both eyes since that point which is been constant. She has not had
any fever chills nausea or vomiting. She denies phonophobia. She has significant photophobia. Denies any neck stiffness or rashes. No change in the headache with laying supine or with upright position. Patient has not noticed any intermittent
changes in the blurred vision seems rather constant since beginning. She has not had any double vision.
Patient relates a history of headaches that can lead to her needing to lay down she generally will take either ibuprofen or Tylenol with these and generally improve. She has not had any visual changes with these previous headaches. She estimates
the frequency are about 1/month she is not seeing a strong association between these headaches and her menstrual cycle. No recent medication changes. No history of unusual weight loss or malignancy.'
Patient reports that yesterday (08/09/24) she had endoscopy/colonoscopy under general anesthesia which was uneventful. She notes that for a couple of days prior to this procedure she has had a 4/10 generalized headache which she attributed to the
bowel prep. After the procedure she notes feeling mildly dizzy. About 5 hours later she reports that her left eye sclera developed a bright redness under her eyelid above and below her iris. Then this morning around 0330, she reports waking up and
noticing that her eyes were open, but she couldn't see anything out of her left eye and the left eye was painful. This did not improve, prompting her to come to the ER for evaluation. CTA head/neck was obtained and is negative for any acute
abnormalities. Blood pressure is elevated at 157/103. Her left eye pain is a 4-5/10. Her headache is now a 1/10. She reports being able to see light and shadows out of her left eye but cannot distinguish anything else, this is unchanged since 329.
She denies any right eye vision loss, speech/swallowing difficulty, numbness, weakness, photo/phonophobia, nausea, shortness of breath, and palpitations. She does not mild chest pain and left shoulder discomfort.
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
Surgical History: , L oophorectomy, T&A
Family History: Maternal grandmother with possible MS. Son- headaches.
Social History: Denies tobacco, alcohol, and illicit drug use.
Allergies: Silver, adhesive tape, cigarette smoke.
Home Medications: See below.
Review of Symptoms:
Patient denies any fever, shortness of breath, GI or symptoms.
�Per the HPI.�All systems are reviewed negative except above.
Physical Exam:
The patient is afebrile, abdomen is nondistended, breathing is unlabored, skin is warm and dry, no edema.
Neurologic Examination:
The patient is awake, alert and oriented x 3. She is able to follow commands and answer questions appropriately. There is no aphasia or dysarthria. On cranial nerve assessment, pupils are 3 mm bilateral, round and reactive to light and
accommodation. Visual العلي are full in the right eye. Trace left lateral vision, otherwise absent. Extraocular movements are intact. Facial sensations are intact and bilaterally symmetrical, there is no facial asymmetry. Hearing is intact
bilaterally to normal conversation volume. Tongue palate and uvula are midline. Sternocleidomastoid strengths are full bilaterally. Motor strengths are 5/5 bilateral upper and lower extremities on medical research [place] scale. There is no drift or
involuntary movement noted. Deep tendon reflexes are 1+ bilateral upper and lower extremities and Babinski is absent bilaterally. Sensations of touch, temperature and vibration are intact and bilaterally symmetrical. There was no extinction noted on
double simultaneous stimulation. Coordination is intact by finger to nose bilaterally.
Lab Results: See below.
Neuro Imaging:
1. CTA head/neck 08/10/24: No acute intracranial hemorrhage. The cervical carotid and vertebral arteries are patent without significant plaque, stenosis, occlusion, or dissection. No [place] region aneurysm or stenosis. No cerebral artery
significant plaque, stenosis, thrombus, or occlusion.
Differentials for the patient's presentation include:
1. Left eye acute visual acuity loss associated with eye pain and mild headache; uncertain etiology, concern for migraine with aura, optic neuritis, vs less likely unilateral IIH.
2. Poorly controlled hypertension.
Patient has the following risk factors for their symptoms: Obesity, hx headaches.
Recommendations:
-Provide rizatriptan 10mg x1 now for headache.
-Provide migraine cocktail x1 per ER orders.
-Provide methylprednisone 1000mg IV x1 now.
-Goal normotension.
-Ophthalmology evaluation would be beneficial.
-MRI brain w/ and w/o contrast pending.
-Checking blood work for metabolic abnormalities.
-Eventual lumbar puncture.
-DVT prophylaxis.
Discussed patient care with: Dr. Vazquez, the patient, patient's father
Vital Signs and Labs
-
Vital Signs and Labs:
Vital Signs
Temp Pulse Resp BP Pulse Ox
98.1 F 83 13 157/103 100
08/10/24 10:17 08/10/24 13:24 08/10/24 13:24 08/10/24 10:39 08/10/24 12:45
Lab Results
08/10/24 10:40
Sodium 140 mmol/L (135-145) 08/10/24 10:59
Potassium mmol/L (3.5-5.1) 08/10/24 10:59
BUN 13 mg/dl (7-17) 08/10/24 10:59
Glucose 106 mg/dl (70-99) H 08/10/24 10:59
Calcium 9.3 mg/dl (8.4-10.2) 08/10/24 10:59
Medications
-
Active Medications
Generic Name Dose Route Start Last Admin
Trade Name Freq PRN Reason Stop Dose Admin
Famotidine 20 mg 08/10/24 22:00
Famotidine 20 Mg Tablet PO 08/14/24 22:01
HS GORGE
Methylprednisolone Sodium 258 mls @ 258 mls/hr 08/11/24 08:00
Succinate 1,000 mg/ Sodium IV 08/14/24 08:59
Chloride Q24H GORGE
Methylprednisolone Sodium 258 mls @ 258 mls/hr 08/10/24 13:51
Succinate 1,000 mg/ Sodium IV 08/10/24 14:50
Chloride NOW STA
Home Medications
�Medication �Instructions �Recorded
cholecalciferol (vitamin D3) 25 25 mcg PO DAILY Supplement 02/01/24
mcg (1,000 unit) tablet (Vitamin
D3)
diphenhydramine HCl 25 mg capsule 25 mg PO DAILYPRN PRN ALLERGIES 02/01/24
(Benadryl)
ibuprofen 200 mg tablet (Advil) 200 mg PO Q6HPRN PRN MILD PAIN 02/01/24
Lactobacillus acidophilus 10 10,000 mmu cells PO DAILY #20 caps 02/03/24
billion cell capsule (Probiotic)
albuterol sulfate 90 mcg/actuation 2 puff inhalation Q6H PRN 05/04/24
aerosol inhaler shortness of breath or wheezing
#6.7 grams
amoxicillin 875 mg-potassium 1 tab PO BID 7 days #14 tabs 05/04/24
clavulanate 125 mg tablet
azithromycin 250 mg tablet 250 mg PO DAILY #4 tabs 05/04/24
(Zithromax)
amoxicillin 500 mg tablet 500 mg PO Q8H #30 tabs 07/17/24
prednisone 50 mg tablet 50 mg PO DAILY #5 tabs 07/17/24
ethynodiol diacetate-ethinyl 1 tab PO DAILY 08/09/24
estradiol 1 mg-35 mcg tablet
(Zovia)
--- NOTE | 2024-08-10 14:07 | HPS.HSE ---
Family Physician
-
Family Physician: Irving Rodriguez
Chief Complaint
-
left eye vision loss
History of Present Illness
34yoF with a history of hypertension and obesity presenting via EMS for evaluation of multiple complaints. Patient had an EGD and colonoscopy yesterday and underwent general anesthesia. When she returned home, she noticed that her left eye was
bloodshot. she woke up with decreased vision from her left eye.she states the only thing she is able to see is light and shadows. She noticed chest and bilateral shoulder discomfort since the discharge from coloscopy yesterday. She is also having
right arm pain in the location of where she had a midline placed yesterday. Patient is complaining of a headache and dizziness. Denied fever, chills, short of breath. Patient denied any abdominal pain, nausea, vomiting, diarrhea. Patient denied
dysuria hematuria.
Head neck CTA with no acute findings
Chest x-ray negative
Patient received Benadryl, Pepcid, Toradol, Ativan, magnesium, Solu-Medrol, Reglan and normal saline in ER
admitting for further management
Medical History
Past Medical History
Past Medical History: Reports Other
Additional Past Medical History:
athma
PCOS
carpal tunnels
lyme disease
diverticulitis
Past Surgical History: Reports Other
Additional Past Surgical History:
adenoidectomy
left wrist carpal tunnel release
oophorectomy right with ligation
c section
Social History
Tobacco: Non-smoker
Alcohol: None
Drug: None
Living: With Family
Employment: Not Employed
Family History
Family History: Not pertinent
Allergies / Home Medications
Allergies reflects when Allergies were last updated in [facility].
Home Medications with original date entered in NPS
Allergy/Medication List:
Allergies
Allergy/AdvReac Type Severity Reaction Status Date / Time
adhesive tape Allergy Rash Verified 08/09/24 12:22
cigarette smoke Allergy Shortness Verified 08/09/24 12:22
of Breath
silver Allergy Rash Verified 08/09/24 12:22
[From Tegaderm [employer] Mesh]
Home Medications
cholecalciferol (vitamin D3) 25 mcg (1,000 unit) tablet (Vitamin D3) 25 mcg PO DAILY Supplement 02/01/24
diphenhydramine HCl 25 mg capsule (Benadryl) 25 mg PO DAILYPRN PRN ALLERGIES 02/01/24
ibuprofen 200 mg tablet (Advil) 200 mg PO Q6HPRN PRN MILD PAIN 02/01/24
Lactobacillus acidophilus 10 billion cell capsule (Probiotic) 10,000 mmu cells PO DAILY #20 caps 02/03/24
albuterol sulfate 90 mcg/actuation aerosol inhaler 2 puff inhalation Q6H PRN shortness of breath or wheezing #6.7 grams 05/04/24
amoxicillin 875 mg-potassium clavulanate 125 mg tablet 1 tab PO BID 7 days #14 tabs 05/04/24
azithromycin 250 mg tablet (Zithromax) 250 mg PO DAILY #4 tabs 05/04/24
amoxicillin 500 mg tablet 500 mg PO Q8H #30 tabs 07/17/24
prednisone 50 mg tablet 50 mg PO DAILY #5 tabs 07/17/24
ethynodiol diacetate-ethinyl estradiol 1 mg-35 mcg tablet (Zovia) 1 tab PO DAILY 08/09/24
Review of Systems
-
Constitutional: Reports No Symptoms
EENT: Reports Other (Left eye vision loss)
Respiratory: Reports No Symptoms
Cardiac: Reports Chest Pain
Abdomen/GI: Reports No Symptoms
: Reports No Symptoms
Musculoskeletal: Reports Other (Shoulder pain)
Skin: Reports No Symptoms
Neurological: Reports Dizzy and Headache
Endocrine: Reports No Symptoms
Hematologic/Lymphatic: Reports No Symptoms
Psych: Reports No Symptoms
Physical Exam
Vital Signs
Vital Signs
Temp Pulse Resp BP Pulse Ox
98.1 F 83 13 157/103 100
08/10/24 10:17 08/10/24 13:24 08/10/24 13:24 08/10/24 10:39 08/10/24 12:45
Physical Exam
General: Well Developed, Well Nourished and No Apparent Distress
HEENT: NormoCephalic, Moist mucous membranes and Atraumatic
Respiratory: Clear
Cardiac: S1/S2 and Regular Rhythm; No Murmur or Rub
GI: Soft, Non Tender, Non Distended and Normal Bowel Sounds; No Organomegaly
Rectal: Deferred by Provider
Musculoskeletal: No Clubbing, No Cyanosis and No Edema
Skin: No Rash
Neuro: AO x 3 and Nonfocal/grossly intact
Psych: Calm
Laboratory Results
-
08/10/24 10:40
Laboratory Results
Total Bilirubin Cancelled 08/10/24 10:59
AST Cancelled 08/10/24 10:59
ALT Cancelled 08/10/24 10:59
Alkaline Phosphatase Cancelled 08/10/24 10:59
Troponin I < 0.012 ng/ml 08/10/24 10:40
Data Reviewed
-
Diagnostic Radiology: Report Reviewed by me
CT Scan: Report Reviewed by me
Lab Data: Labs Reviewed by me
Impression/Plan
-
#left eye vision loss associated with DOYLE concern for optic neuritis vs migraine with aura
-CT head/neck negative
-Obtain MRI
-iv steroids
-neuro consulted
-follow stone product fabricator as outpatient
-Patient received a dose of rizatriptan in the ER
-Labs as per neurology
#right arm pain
-duplex with No evidence of right upper extremity venous thrombus.
# History of migraine
#hx of lyme
#Class III Obesity
-Affects all aspects of care
-Encourage weight loss
DVT proph: Rosettax
[2024-08-10 14:25] LABS: Erythrocyte Sed Rate 43 mm/hour (0-20)
[2024-08-10 15:02] LABS: INR 1.01; PT 13.8 Sec (11.4-14.6)
[2024-08-10 15:14] LABS: ALT (SGPT) 14 U/L (0-35); AST (SGOT) 20 U/L (14-36); Albumin 3.9 g/dl (3.5-5.0); Alkaline Phosphatase 73 U/L (38-126); Potassium 3.9 mmol/L (3.5-5.1); Total Bilirubin 0.3 mg/dl (0.2-1.3); Total Protein 6.9 g/dl (6.3-8.2)
--- NOTE | 2024-08-10 15:31 | W.PN.UPDATE ---
Update Note
Progress Note Update
This is an addendum to the H&P written by Ca Vogel on 08/10/2024. Patient seen and examined independently with [facility].
34-year-old female past medical history of migraines, asthma, ADHD, obesity, presenting with vision loss from left eye. She underwent EGD/colonoscopy yesterday and noticed left eye redness afterwards and decreased vision from left eye noticed this
morning.
Also with chest/bilateral shoulder discomfort throughout the chest. She has had similar pain with anesthesia previously although not as severe. Pain and swelling in the right arm at the location of midline placed yesterday which apparently
required multiple attempts to be placed.
She has maternal grandmother with history of multiple sclerosis. Her son and sister have Chiari malformation.
ER discussed with neurology and ophthalmology with concern for optic neuritis versus pseudotumor cerebri and performed CTA head and neck which was unremarkable. Labs are unremarkable. Neurology consulted and started pulse dose steroids. MRI
brain. IR consulted for lumbar puncture.
Chest pain likely secondary to EGD/anesthesia. As needed Dilaudid. Consider further imaging with CT chest if no improvement by tomorrow.
EKG unremarkable. Troponin negative. Ultrasound of right upper extremity pending to evaluate for hematoma.
[2024-08-10 16:01] LABS: TSH Reflex To Free T4 3.19 uIU/ml (0.47-4.68)
[2024-08-10 16:05] LABS: Ferritin 28.6 ng/ml (6.24-137)
[2024-08-10 16:37] LABS: Folate 4.2 ng/ml (2.76-20); Vitamin B12 508 pg/ml (239-931)
[2024-08-10 17:00] VITALS: BP 159/92
[2024-08-10 17:21] VITALS: BMI 65.7
[2024-08-10] MEDS: SOLU-MEDROL 258 MG IV (17:28)
[2024-08-10] MEDS: PEPCID 20 MG PO (21:25)
[2024-08-10 23:17] VITALS: BP 166/95
[2024-08-11] VITALS (7 sets, daily range): BP systolic 66–178; BP diastolic 70–95
[2024-08-11] MEDS: SOLU-MEDROL 258 MG IV (07:36)
[2024-08-11] MEDS: FLUSH (NSS) 1 FLUSH IV (07:38)
--- NOTE | 2024-08-11 09:07 | W.PN.HOSP.TC ---
Documented by User: Obdulio Saucedo DO, Resident 08/11/24 12:22
Today's Communication/Plan
-
Continue IV steroids
MRI brain pending
Lumbar puncture pending
Assessment / Plan
Assessment / Plan
Assessment:
34-year-old female past ministry of migraines, morbid obesity and hypertension presents left-sided visual loss and right-sided arm pain. She had a colonoscopy/EGD 1 days prior to admission. Patient states symptoms started after procedure.
Plan:
#Left-sided visual loss
vision loss at 3am 08/10/24, painful and persistent more than 24 hours without resolution
CTA head/neck negative
MRI brain pending
Continue IV steroids
Neurology following
no developmental behavioral physician at [facility] to evaluate her. Spoke to [facility] about accepting patient as a transfer. Options given were inpatient-inpatient transfer to [place] then ophthalmology evaluation, which would not be a priority transfer.
Or to discharge patient and arrange transport to [facility] ER.
We decided to discharge patient and send to [facility] ER as it would be faster and would get her evaluated by an developmental behavioral physician as quickly as possible.
#Headache
Patient has history of migraines
Received dose of rizatriptan in ER
Still endorsing headache, pattern not consistent with migraine
Symptomatic management
Has lumbar puncture pending to evaluate for pseudotumor cerebri
#Right arm pain
Ultrasound right arm demonstrated no DVT
Patient no longer complaining of pain in right arm
#Left arm pain
Complaining of pain at IV site with associated numbness
IV team to replace IV
was unable to get a new IV so team had to place midline. Pt was likes to keep midline at discharge. She has poor IV access and wants to limit sticks as much as possible, until evaluation is complete at [facility]
Pt will be discharge to [facility] with her midline in place. She will be transported via ambulance
#Morbid obesity
BMI 65
Affects all aspects of care
Encourage weight loss
#hx of lyme disease
DVT prophylaxis Lovenox
Diet: Regular
CODE STATUS full code
Anticipated Discharge: Today
Subjective/Interval History
-
Date of Service: August 11, 2024
Patient reports pain in her right IV site
Still endorsing vision loss in left eye-states can only see shadows affecting entire left visual field
Objective Data
-
Vital Signs:
Vital Signs
Temp Pulse Resp BP Pulse Ox
97.6 F 55 20 143/70 96
08/11/24 07:05 08/11/24 07:05 08/11/24 07:05 08/11/24 07:05 08/11/24 07:05
I&O
08/10/24 08/11/24 08/12/24
06:59 06:59 06:59
Intake Total 240 / 240 258 / 258
Balance 240 / 240 258 / 258
Review of Systems
-
Constitutional: Reports No Symptoms
EENT: Reports Blurry Vision (Left-sided blurry/decreased vision of entire visual field), Decreased Vision (Left-sided) and Other (Left-sided bloodshot eye)
Respiratory: Reports No Symptoms
Cardiac: Reports No Symptoms
Abdomen/GI: Reports No Symptoms
Genitourinary: Reports No Symptoms
Musculoskeletal: Reports Other (Left arm pain from IV)
Neuro: Reports Numbness (Numbness in left hand)
Physical Exam
-
General: Well Developed, Well Nourished, No Apparent Distress, Comfortable and Morbidly Obese
HEENT: Other (subconjunctival hemorrhage in left eye. full field vision loss in left eye. fully reactive to light, can see shadows/shapes )
Respiratory: Clear to Auscultation
Cardiac: Regular Rhythm and S1/S2
GI: Soft, Nontender and Nondistended
Musculoskeletal: No Edema and Other (Pulses intact and strong in the left and right upper extremity)
Skin: Warm, Dry and IV Access / Catheter Site
Neuro: Awake, Alert, Oriented, AO x 3 and No Motor Deficits
Psych: Calm and Intact Judgement/Insight
Data Reviewed
-
Labs: Labs Reviewed by me and Discussed with Physician

Documented by User: Be Conteh MD, Resident 08/11/24 11:37
Today's Communication/Plan
-
Continue IV steroids
Discharge to [facility]
Assessment / Plan
Assessment / Plan
Assessment:
34-year-old female past ministry of migraines, morbid obesity and hypertension presents left-sided visual loss and right-sided arm pain. She had a colonoscopy/EGD 1 days prior to admission. Patient states symptoms started after procedure.
Plan:
#Left-sided visual loss
vision loss at 3am 08/10/24, painful and persistent more than 24 hours without resolution
CTA head/neck negative
MRI brain pending
Continue IV steroids
Neurology following
no developmental behavioral physician at [facility] to evaluate her. Spoke to [facility] about accepting patient as a transfer. Options we were given were inpatient-inpatient transfer which would not be a priority transfer. Or to discharge patient and arrange
transport to [facility].
We decided to discharge patient and send to [facility] as it would be faster and would get her evaluated by an developmental behavioral physician as quickly as possible
#Headache
Patient has history of migraines
Received dose of rizatriptan in ER
Still endorsing headache, does not classified as migraine
Symptomatic management
Has lumbar puncture pending to evaluate for pseudotumor cerebri
#Right arm pain
Ultrasound right arm demonstrated no DVT
Patient no longer complaining of pain in right arm
#Left arm pain
Complaining of pain at IV site with associated numbness
Attempted to contact IV team to replace IV
Encourage patient to deal with symptoms to receive IV steroids for the interim as they are important, patient agreeable but will look into p.o. steroids and possible
#Morbid obesity
BMI 65
Affects all aspects of care
Encourage weight loss
#hx of lyme disease
DVT prophylaxis Lovenox
Diet: Regular
CODE STATUS full code
Anticipated Discharge: Today
Review of Systems
-
Cardiac: Reports No Symptoms
Abdomen/GI: Reports No Symptoms
--- NOTE | 2024-08-11 10:18 | W.PN.NEURO.1 ---
Today's Communication / Plan
-
Based on the possibility of optic neuritis, initiated methylprednisolone 1 g IV daily x 3 or 5 days, 08/11/2024 will represent 2 treatments
Check MRI of brain with and without contrast with special attention to the optic nerves
Lumbar puncture by interventional radiology, also to obtain opening pressure
Provide rizatriptan for head discomfort
Agree with plan for transfer to outside hospital to allow more extensive ophthalmologic evaluation
Neuro Assessment/Plan
Assessment
Abrupt onset of left eye visual loss
Differential diagnosis includes optic neuritis, migraine with aura, idiopathic intracranial hypertension (less likely as the patient is experiencing an asymmetric visual loss), retinal detachment, functional neurological disorder
Agree with ophthalmologic evaluation of this patient to ensure no retinal abnormality
Plan
Based on the possibility of optic neuritis, initiated methylprednisolone 1 g IV daily x 3 or 5 days, 08/11/2024 will represent 2 treatments
Check MRI of brain with and without contrast with special attention to the optic nerves
Lumbar puncture by interventional radiology, also to obtain opening pressure
Provide rizatriptan for head discomfort
Agree with plan for transfer to outside hospital to allow more extensive ophthalmologic evaluation
Will follow
Subjective/Objective
Subjective Data
Date of Service: August 11, 2024
Headache 4/10, no change to vision.
Developed numbness in left arm with IVF, then improved after IV moved
Objective Data
Vital Signs
Temp Pulse Resp BP Pulse Ox
36.4 C 55 20 143/70 96
08/11/24 07:05 08/11/24 07:05 08/11/24 07:05 08/11/24 07:05 08/11/24 07:05
Lab Results
08/10/24 10:40
08/10/24 14:45
PT 13.8 Sec (11.4-14.6) 08/10/24 14:45
INR 1.01 08/10/24 14:45
Sodium 140 mmol/L (135-145) 08/10/24 10:59
Potassium 3.9 mmol/L (3.5-5.1) 08/10/24 14:45
BUN 13 mg/dl (7-17) 08/10/24 10:59
Glucose 106 mg/dl (70-99) H 08/10/24 10:59
Calcium 9.3 mg/dl (8.4-10.2) 08/10/24 10:59
Vitamin B12 508 pg/ml (239-931) 08/10/24 10:59
Patient Allergies
adhesive tape Allergy (Verified 08/09/24 12:22)
Rash
cigarette smoke Allergy (Verified 08/09/24 12:22)
Shortness of Breath
silver [From Tegaderm AG Mesh] Allergy (Verified 08/09/24 12:22)
Rash
Review of Systems
-
History Source: Patient
All other systems: Reviewed and negative
Respiratory: Negative Trouble Breathing
Cardiac: Negative Chest Pain
Musculoskeletal: Negative Back Pain or Neck Pain
Neuro: Dizzy and Headache
Physical Exam
-
General: No Apparent Distress and Appears Stated Age
Eyes: Round OU, [place] Conjunctivae and No Ptosis
HEENT: Anicteric and Moist Mucous Membranes
Neck: Full Range of Motion
Respiratory: No Dyspnea
Cardiac: No JVD
GI: Non-distended
Skin: Unremarkable
Extremities: No Clubbing, No Cyanosis and No Edema
Psych: Intact Judgement/Insight
Extended Neurological Exam
Mood & Affect: Mood Unremarkable and Affect Unremarkable
Attention Span & Concentration: Awake, Alert, Interactive and No Difficulty with 2 Step Request
Memory: Unremarkable
Tremor: Hand Tremor Absent and Head Tremor Absent
Speech: Quality Unremarkable and Quantity Unremarkable
Cranial Nerve II: Left Eye: Pupillary Size Unremarkable and Visual Quinn Grossly Intact
Cranial Nerve II: Right Eye: Pupillary Size Unremarkable and Visual Quinn Grossly Intact
Cranial Nerves III, IV, : Extraocular Movement: Extraocular Movement Full in all Directions
Cranial Nerve VII: Facial Symmetry: Normal Facial Symmetry
Cranial Nerve VIII: Hearing: Unremarkable Hearing to Normal Conversational Volume
Cranial Nerve XI: Shoulder Shrug: Unremarkable
Muscle Strength, Overall: Full in Upper Extremities
Muscle Bulk & Tone: Bulk Unremarkable and Tone Unremarkable
Pronator Drift: No Drift in Upper Extremities
Touch Sensation: Unremarkable
Coordination: Elquqx-hqcm-jtzxqy Testing Unremarkable
Data Reviewed
-
MRI Head: Pending
Labs: Ordered, Pending and Report Reviewed
Reviewed with: Physician and Patient
Old Records: Summarized
[2024-08-11] MEDS: ATIVAN 1 MG PO (10:43)
--- NOTE | 2024-08-11 11:18 | CM ---
Addendum entered by Nicholas Mcknight 08/11/24 16:10:
Lumbar puncture completed.
Transport scheduled for 6 pm to [facility]
Original Note:
Pt seen bedside. Pt lives w/ family in a 2STH- 5 steps to enter home
Pt prev. independent, denies DME use for ambulating
No SNF/VN/PT hx
Denies financial insecurities
PCP: Dr. Irving Rodriguez
Pharmacy: [facility]
Address, point of contact and insurance verified
Pt admitted for L eye vision loss. Poss stroke
Pt to d/c to [facility] today
Ambulance transport arranged by machine made shoe unit worker, awaiting time
Plan: D/c to [facility] via ambulance
--- NOTE | 2024-08-11 12:23 | W.PN.HOSP.TC ---
Addendum entered and electronically signed by Alexandre Patel MD 08/11/24 14:50:
seen and examined by me independently in collaboration with the manager of medical All.
Lab data and imaging data reviewed.
Addendum as below :
Patient had a EGD colonoscopy on Wednesday. Went home And was drinking okay from abdominal standpoint. She was able to eat and drink.
She says her son noticed the left eye was shot. There was blood on the conjunctiva. No trauma.
She went to sleep and when she got up at 3:30 in the morning she could not see from the left eye. She could only see shadows. No bright lights. She had a vague headache in general 1 out of 10 at onset. It is worse now may be because she could
not get sleep at all. He is not acting like typical migraine. She denies any migraine with aura or eye symptoms or neurological symptoms. She denies any photophobia or phonophobia currently. No nausea vomiting.
She denies any prior ophthalmologic problem. Not myopic.
Since its onset she persists to have left eye vision loss.
Pupils are equal reactive to light. No afferent reflex defect identified by me. No spontaneous nystagmus. Left eye with subconjunctival hemorrhage noted.
Nonfocal neurologically otherwise.
CT of the head shows no evidence of acute infarct. CT of the head and neck shows no large vessel occlusion.
Acute monocular vision loss-no past 24 hours without any improvement. She would require retinal exam immediately to rule out any primary retinal abnormality. Once excluded would continue further with stroke workup and as concerned by neurology
evaluate optic neuritis and intracranial hypertension which is felt less likely as this is unilateral> vision issue.
I contacted [facility] spoke with the on-call team who recommended she be transferred to [facility] ER. Discussed with the patient was agreeable. Discussed with case management for transportation assistance.
Unfortunately in this hospital there is no instructional developer on-call to evaluate the patient in house. ER communication with instructional developer noted.
Total time of dc 35 min.
.
Original Note:
Today's Communication/Plan
-
continue IV steroids
Discharge to [facility] ED
Assessment / Plan
Assessment / Plan
Assessment:
34-year-old female past ministry of migraines, morbid obesity and hypertension presents left-sided visual loss and right-sided arm pain. She had a colonoscopy/EGD 1 days prior to admission. Patient states symptoms started after procedure.
Plan:
#Left-sided visual loss
vision loss at 3am 08/10/24, painful and persistent more than 24 hours without resolution
CTA head/neck negative
MRI brain pending
Continue IV steroids
Neurology following
no instructional developer at [place] to evaluate her. Spoke to [facility] about accepting patient as a transfer. Options given were inpatient-inpatient transfer to [place] then ophthalmology evaluation, which would not be a priority transfer.
Or to discharge patient and arrange transport to [facility] ER.
We decided to discharge patient and send to [facility] ER as it would be faster and would get her evaluated by an instructional developer as quickly as possible.
#Headache
Patient has history of migraines
Received dose of rizatriptan in ER
Still endorsing headache, pattern not consistent with migraine
Symptomatic management
Has lumbar puncture pending to evaluate for pseudotumor cerebri
#Right arm pain
Ultrasound right arm demonstrated no DVT
Patient no longer complaining of pain in right arm
#Left arm pain
Complaining of pain at IV site with associated numbness
IV team to replace IV
was unable to get a new IV so team had to place midline. Pt was likes to keep midline at discharge. She has poor IV access and wants to limit sticks as much as possible, until evaluation is complete at [facility]
Pt will be discharge to [facility] with her midline in place. She will be transported via ambulance
#Morbid obesity
BMI 65
Affects all aspects of care
Encourage weight loss
#hx of lyme disease
DVT prophylaxis Lovenox
Diet: Regular
CODE STATUS full code
Anticipated Discharge: Today
Anticipated Discharge: Today
Subjective/Interval History
-
Date of Service: August 11, 2024
pt still endorsing left sided vision loss
Also endorses Left sided arm pain from her IV
Objective Data
-
Vital Signs:
Vital Signs
Temp Pulse Resp BP Pulse Ox
98.4 F 79 18 172/95 98
08/11/24 11:20 08/11/24 11:20 08/11/24 11:20 08/11/24 11:20 08/11/24 11:20
I&O
08/10/24 08/11/24 08/12/24
06:59 06:59 06:59
Intake Total 240 / 240 258 / 258
Balance 240 / 240 258 / 258
Review of Systems
-
Constitutional: Reports No Symptoms
EENT: Reports Blurry Vision and Decreased Vision
Respiratory: Reports No Symptoms
Cardiac: Reports No Symptoms
Abdomen/GI: Reports No Symptoms
Genitourinary: Reports No Symptoms
Musculoskeletal: Reports Other (left arm pain)
Neuro: Reports Numbness (left arm numbness)
Physical Exam
-
General: Well Developed, Well Nourished, No Apparent Distress, Comfortable, Conversant and Morbidly Obese
HEENT: Other (left eye subconjunctival hemorrhage, decreased vision in entire left field. Report only seeing shadows. Reactive to light with intact contralateral pupillary light reflex in both eyes)
Respiratory: Clear to Auscultation
Cardiac: Regular Rhythm
GI: Soft, Nontender and Nondistended
Musculoskeletal: No Edema and Other (pulses intact in right and lower radial pulse)
Skin: Warm and Dry
Neuro: Awake, Alert, Oriented and AO x 3
Psych: Calm and Intact Judgement/Insight
Data Reviewed
-
CT Scan: Report Reviewed by me and Discussed with Physician
Ultrasound: Report Reviewed by me and Discussed with Physician
Labs: Labs Reviewed by me and Discussed with Physician
--- NOTE | 2024-08-11 12:47 | W.DCSUMMARY ---
Discharge Summary
Discharge Data
Date of Admission: 08/10/24
Date of Discharge: 08/11/24
-
Pending Results: Yes
Additional Pending Results:
CSF fungal culture,
CSF culture,
MRI brain read,
CSF albumin,
CSF IgG,
Serum albumin,
CSF igG/Albumin
CSF Alb/Ser alb index
CSF igG synthesis rate
CSF myelin basic protein
CSF oligoclonal bands
CSF VDRL
Hospital Course
Discharging Physician : Jorge Saucedo N
Disposition : [facility]
Primary care physician : Irving Rodriguez
Principal Discharge diagnosis : Acute left-sided vision loss
Chronic Discharge diagnosis : Morbid obesity, migraines, hypertension, history of Lyme disease
Hospital Course : 34-year-old female with past medical history of migraines, obesity and hypertension presents via EMS for evaluation of acute left-sided vision loss and right arm pain. The symptoms started 3 AM in the morning after she received an
EGD and colonoscopy for workup of potential diverticulosis and possible celiac disease. Patient reports she woke up at 3 AM with complete left-sided vision loss and associated subconjunctival hemorrhage. In the emergency department neurology was
consulted as well as ophthalmology. However ophthalmology would not come and evaluate the patient in the ED or in the hospital. Patient received CTA of the head and neck which did not demonstrate any large vessel occlusion and patient was admitted
and worked up for a potential stroke by neurology. Neurology was consulted and they ordered her an MRI brain with and without contrast as well as a lumbar puncture. While patient was admitted she began having issues with the IV in her arm.
Patient is a very difficult stick and we had to give her a midline. Per patient's request, we kept midline in on discharge for her to use until her workup at [facility] ED is completed as she is a difficult stick and does not want to be poked more.
Her left-sided vision loss did not resolve after a period of 24 hours, as we do not have an sound effects manager to evaluate her. We called and spoke to [facility] and [facility] eye resident. We were given 2 options inpatient to inpatient
transfer to [place] with ophthalmology evaluation, and the patient would not be a prior to transfer as this was greater than 24 hours of vision loss. Or to discharge the patient and send her to [facility] ED. We made the decision to discharge her
and send her to [facility] emergency department for urgent ophthalmologic retinal evaluation and workup as we felt this would be the fastest way for her to get prompt ophthalmologic evaluation. While she was here she did receive a lumbar puncture
and an MRI brain with and without contrast, while she was waiting for transport to arrive. Pt was sent to [facility] with copy of her MRI on disc. Final read was pending at time of discharge. Results will be sent with the patient over to [facility] ED
to help facilitate quicker workup and identification of her symptoms. Patient will be discharged to [facility] emergency department for ophthalmologic workup and evaluation of her left-sided vision loss. Patient was sent to [facility] ED via
ambulance transport.
Important imaging findings :
08/10/2024 chest x-ray, impression:
No acute cardiopulmonary process.
08/10/2024 head and neck CTA, impression:
No acute intracranial hemorrhage.
The cervical carotid and vertebral arteries are patent without significant plaque, stenosis, occlusion, or dissection.
No [place] region aneurysm or stenosis.
No cerebral artery significant plaque, stenosis, thrombus, or occlusion.
08/10/2024 peripheral vascular ultrasound, impression:
No evidence of right upper extremity venous thrombus.
08/11/24 MRI brain with and without contrast
Final read pending- disc sent with patient on discharge
Procedure findings :
08/11/2024 lumbar puncture impression:
Fluoroscopically guided lumbar puncture as described. Opening pressure 21 cm H2O. As above, possibly some degree of false elevation of the pressure secondary to motion.
08/11/2024 midline placement
Discharge Plan
-
Patient Disposition: Acute Care Hospital
Condition: Fair
Discharge Orders:
Discharge Patient (As Directed); Ordered 08/11/24
Ordered By: Obdulio Saucedo
Discharge Date and Time
Print Language: STATELESS
[2024-08-11 14:08] LABS: CSF Clarity Clear; CSF Color Colorless; CSF Tube # 1; White Cell Count/CSF 4 mm^3 (0-5)
[2024-08-11 14:10] LABS: Red Cell Count/CSF 45 mm^3
[2024-08-11 14:12] LABS: CSF Color Colorless; CSF Tube # 4; CSF Tube # Clarity Clear; Red Cell Count/CSF 1 mm^3; White Blood Cell Count/CSF 2 mm^3 (0-5)
[2024-08-11] MEDS: TYLENOL 650 MG PO (14:13)
[2024-08-11 14:40] LABS: Spinal Fluid Glucose 82 mg/dl (40-70); Spinal Fluid Protein 53 mg/dl (12-60)
--- NOTE | 2024-08-11 19:56 | W.PN.UPDATE ---
Update Note
Progress Note Update
We called and spoke to a [facility] resident this morning regarding transfer options to have Dawn evaluated. We were told we could chose to do an inpatient-inpatient transfer to [facility], where the patient would not be high
priority as her vision loss had been greater than 24 hours at that point, or we could discharge her and have her sent to [facility] ER. We decided that it would be best to discharge her and send to [facility] so she could be evaluated KRISTINE. Patient
was discharged at 11:00 so our shoe caser could begin to arrange transport for her to get to [facility]. We were told transport would arrive at 1:30pm. Unfortunately the patient was taken for a lumbar puncture at some point after discharge orders
were placed, and transport time had to be pushed back to 6:00PM. In the interm between then and we ordered an MRI to be completed as the resident from [facility] said it would help speed up her evaluation and neurology wanted it to rule out optic
neuritis. MRI was completed and patient was given a copy of her results and scan disc. At 6 when transport arrived, we were informed that we needed an accepting physician in order for transport to take the patient. After reaching out to [facility] a
resident Dr. Ofelia Ayers, agreed to accept the patient as a courtesy and to get her seen kristine. new transport was arranged to picker/puller patient at 8:15PM to take her to [facility] for evaluation. Transfer request form was completed by myself Dr Carrizales "Batool"Lewis and Dr Be Conteh with patient's signature.
[2024-08-11] MEDS: PEPCID 20 MG PO (21:53)
[2024-08-13 08:35] LABS: ANA, IgG Reflex to HEp-2 None Detected (None Detected)
[2024-08-14 18:45] LABS: Myelin Basic Protein, CSF 3.08 ng/mL (0.00-5.50)
[2024-08-14 19:25] LABS: Albumin Index 6.3 ratio (0.0-9.0); Albumin, CSF 22 mg/dL (0-35); Albumin, Serum 3505 mg/dL (3500-5200); CSF IgG Synthesis Rate 1.2 mg/d (<=8.0); CSF IgG/Albumin Ratio 0.22 ratio (0.09-0.25); CSF Oligoclonal Bands Negative (Negative); CSF Oligoclonal Bands Number Matching Bands (0-1); IgG 1289 mg/dL (768-1632); IgG, CSF 4.8 mg/dL (0.0-6.0)
[2024-08-15 09:07] LABS: CSF VDRL (T. pallidum) Non Reactive (Non Reactive)
== END 2024-08-11 23:55 | disposition short-term general hospital (02) | DRG 125 ==
LOC: 4 WEST ACU 14:22
PROVIDERS: Physician Assistant; Radiology Vascular & Interventional Radiology; ADMITTING PHYSICIAN Hospitalist; ATTENDING PHYSICIAN Internal Medicine; CONSULT PHYSICIAN Psychiatry & Neurology Neurology; EMERGENCY PHYSICIAN Emergency Medicine; FAMILY PHYSICIAN Family Medicine
PROC: 009U3ZX Drainage of Spinal Canal, Percutaneous Approach, Diagnostic (ICD-10-PCS; 2024-08-11)
DX: H54.62 Unqualified visual loss, left eye, normal vision right eye (principal); H46.9 Unspecified optic neuritis; Z68.44 Body mass index [BMI] 60.0-69.9, adult; H11.32 Conjunctival hemorrhage, left eye; F90.9 Attention-deficit hyperactivity disorder, unspecified type; I10 Essential (primary) hypertension; J45.909 Unspecified asthma, uncomplicated; G43.109 Migraine with aura, not intractable, without status migrainosus; E66.813 Obesity, class 3; E66.01 Morbid (severe) obesity due to excess calories; R07.89 Other chest pain; Z86.19 Personal history of other infectious and parasitic diseases; Z86.718 Personal history of other venous thrombosis and embolism; Z98.890 Other specified postprocedural states; Z79.52 Long term (current) use of systemic steroids; Z79.899 Other long term (current) drug therapy
CPT/HCPCS: 62328; 70496; 70498; 70553; 71046; 80048; 80076; 81025; 82040; 82042; 82607; 82728; 82746; 82784; 82945; 83873; 83916; 84132; 84157; 84443; 84484; 85025; 85610; 85652; 86038; 86140; 86592; 87015; 87070; 87102; 87205; 88108; 89051; 93005; 93971; 96361; 96374; 96375; 99285; A9575; Q9967

== ENCOUNTER 2024-12-11 10:56 | Emergency (ER) | payer SELFPAY ==
[2024-12-11 11:03] VITALS: BP 160/133
[2024-12-11 12:00] VITALS: BP 151/100
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
[2024-12-11] MEDS: TYLENOL 1000 MG PO (13:48)
[2024-12-11] MEDS: MOTRIN 600 MG PO (15:36)
[2024-12-11 15:40] VITALS: BP 158/69
== END 2024-12-11 16:10 | disposition home or self-care (01) ==
LOC: EMR 10:56
PROVIDERS: EMERGENCY PHYSICIAN Emergency Medicine; FAMILY PHYSICIAN Family Medicine
DX: S20.211A Contusion of right front wall of thorax, initial encounter (principal); M54.6 Pain in thoracic spine; V49.40XA Driver injured in collision with unspecified motor vehicles in traffic accident, initial encounter; J45.909 Unspecified asthma, uncomplicated; Z86.718 Personal history of other venous thrombosis and embolism
CPT/HCPCS: 99283; 71101

== ENCOUNTER 2025-01-31 17:34 | Emergency (ER) | payer OTHER, SELFPAY ==
[2025-01-31 17:41] VITALS: BP 184/110
[2025-01-31 20:00] VITALS: BP 147/90
--- NOTE | 2025-01-31 20:10 | ED.GENMED ---
History of Present Illness
General
Chief Complaint: DVT/Possible Blood Clot
Source: patient
Time Seen by Provider: 01/31/25 19:56
History of Present Illness
History of Present Illness:
This patient is a 34-year-old female with a history of a DVT precipitated by a PICC line in her upper extremity a long time ago, no prior history of DVT otherwise, who presents emergency department because she wanted to make sure she did not have a
DVT in her right leg. She was referred by her doctor. She has been reporting a 'on fire' feeling throughout her entire lower leg for about a week. She denies chest pain, dyspnea, fever, chills, recent trauma, recent immobilization, swelling,
redness, warmth, or other abnormalities. She denies weakness, numbness, tingling, or difficulty walking.
Past History
Past History
ED Past Medical History: Asthma and Other (ADHD, Ankle Fracture, Lyme, Cellulitis, DVT, morbid obesity); Negative HTN, Hypercholesterolemia or NIDDM
ED Past Surgical History: , Gynecological (Ovarian cyst removed. Oophorectomy thinks Left), Orthopedic, Tonsilectomy and Other (Adenoid surgery)
Social History
Tobacco: Non-smoker
Alcohol: None
Personal: Single
Living: with family
Employment: Employed (childcare)
Phy Exam
Physical Exam
Physical Exam:
GENERAL: Alert , in no apparent distress
EYE: pupils equal and reactive
NECK: Supple, no significant adenopathy.
ENT: o/p clr, mmm.
CARDIAC: Regular rate and rhythm .
LUNGS: Clear breath sounds bilaterally, no acute respiratory distress, no wheezes/rales/rhonchi
ABDOMEN: Soft, without focal tenderness, no r/g, no cvat
NEUROLOGICAL: Alert and oriented, no focal neuro deficits
SKIN: Warm and dry, skin intact.
MUSCULOSKELETAL: No edema, well perfused. No bruising/redness/warmth/fluctuance/swelling, no ttp. FROM easily. 2+ dp pulses bilat. Neg jean-pierre's
PSYCH: Normal and appropriate interaction.
Course
Orders/Labs/Results
Orders:
Orders
01/31/25 17:44
US Legs, Right [US Periph Venous LOWER Ext RT] Urgent
Comment:
Reason For Exam: pain and swelling with hx of DVT
Vital Signs
Initial and Last Documented VS:
Initial Vital Signs
Temp Pulse Resp BP Pulse Ox
98.1 F 116 18 184/110 98
01/31/25 17:41 01/31/25 17:41 01/31/25 17:41 01/31/25 17:41 01/31/25 17:41
Last Documented Vital Signs
Temp Pulse Resp BP Pulse Ox
98.1 F 97 23 147/90 100
01/31/25 17:41 01/31/25 20:30 01/31/25 20:30 01/31/25 20:00 01/31/25 20:30
Update Note
Update Note:
Patient presents to the Emergency Department with leg discomfort described as 'on fire'____
Number and Complexity of Problems Addressed at the Encounter
� Chronic conditions affecting care:
� Acute Exacerbation and/or Progression of Chronic Illness:
� Differential Diagnosis includes: But not limited to cellulitis, neuropathy, DVT, etc. etc.
Amount and/or Complexity of Data to be Reviewed and Analyzed
� I performed an independent evaluation of and my interpretation is:
EKG:
CT:
Xrays:
Laboratory Studies:
Other: us No sonographic evidence for right lower extremity deep venous thrombosis.
2. Moderate diffuse subcutaneous edema in the lateral right lower leg.
� Review of other/old records reveals:
� Clinical information was obtained by an independent historian:
� Prescriptions/Medications Considered but not given:
� Further testing considered but not performed:
Risk of Complications and/or Morbidity or Mortality of Patient Management
� Social determinants of health affecting care:
� Discussion with other providers (PCP, Hospitalists, Consultants, etc):
� Escalation of care including admission/observation vs risk of discharge considered: Patient aware of ultrasound results. On repeat exam I do not appreciate edema in the right lateral lower leg. There is certainly no signs of
abnormalities there such as tenderness, fluctuance, redness, warmth, etc. Discussed with patient importance of follow-up and reasons to return to the ER.
ED Attending Note
-
Portions of this chart may have been created with voice recognition software.� Occasional wrong word or��sound alike� substitutions may have occurred due to the inherent limitations of voice recognition software.
Discharge Plan
Departure
Patient Disposition: Home (Routine Discharge)
Date of Disposition: 01/31/25
Time of Disposition: 20:57
Patient with high blood pressure during this ER visit?: Yes
Condition: Good
Instructions: BLOOD PRESSURE
Prescriptions:
No Action
No Current Medications
0
Activity Restrictions/Additional Instructions:
PLEASE FOLLOW-UP WITH YOUR DOCTOR PROMPTLY. IF YOU DEVELOP NUMBNESS, TINGLING, REDNESS, WARMTH, WEAKNESS, SWELLING, CHEST PAIN, SHORTNESS OF BREATH, FEVER, OR OTHER WORRISOME SIGNS, PLEASE RETURN TO THE ER IMMEDIATELY.
Interventions
Interventions:
*General Assessment Last Done: 01/31/25 17:41
*Neglect/Abuse Screening Last Done: 01/31/25 20:09
*ED- Fall Risk Assessment Last Done: 01/31/25 20:09
*ED COVID-19 Vaccine History Last Done: 01/31/25 20:09
ED- Cardiac Assessment Last Done: 01/31/25 20:28
ED- Pulmonary Assessment Last Done: 01/31/25 20:28
ED-Peripheral Vascular Assessment Last Done: 01/31/25 20:28
ED-Skin Assessment Last Done: 01/31/25 20:28
Discharge Date and Time
Print Language: RUSSIAN
[2025-01-31 21:00] VITALS: BP 144/89
== END 2025-01-31 22:24 | disposition home or self-care (01) ==
LOC: EMR 17:34
PROVIDERS: EMERGENCY PHYSICIAN Emergency Medicine; FAMILY PHYSICIAN Family Medicine
DX: R60.0 Localized edema (principal); J45.909 Unspecified asthma, uncomplicated; Z86.718 Personal history of other venous thrombosis and embolism
CPT/HCPCS: 99284; 93971

== ENCOUNTER 2025-04-03 13:43 | Emergency (ER) | payer OTHER, SELFPAY ==
[2025-04-03] VITALS (13 sets, daily range): BP systolic 155–208; BP diastolic 73–135; BMI 72.1
[2025-04-03 14:20] LABS: Hematocrit 39.4 % (37.0-47.0); Hemoglobin 13.1 g/dL (12.0-16.0); Mean Corp Hgb Conc. 33.2 g/dL (33.0-37.0); Mean Corpuscular Volume 89.7 fL (81.0-99.0); Nucleated Red Blood Cells % 0 %; Platelet Count 195 10^3/uL (130-400); Red Cell Dist. Width 12.7 % (11.5-14.5)
[2025-04-03 14:35] LABS: ALT (SGPT) < 10 U/L (0-35); AST (SGOT) 17 U/L (14-36); Albumin 3.9 g/dl (3.5-5.0); Alkaline Phosphatase 56 U/L (38-126); Blood Urea Nitrogen 14 mg/dl (7-17); Calcium 9.1 mg/dl (8.4-10.2); Carbon Dioxide 27 mmol/L (22-30); Chloride 110 mmol/L (98-107); Glucose 91 mg/dl (70-99); Potassium 4.6 mmol/L (3.5-5.1); Sodium 138 mmol/L (135-145); Total Protein 6.8 g/dl (6.3-8.2); eGFR > 60.00
--- NOTE | 2025-04-03 17:11 | ED.GENMED ---
History of Present Illness
General
Chief Complaint: Blood Pressure Problem
Source: patient
Exam Limitations: none
Time Seen by Provider: 04/03/25 16:33
Nursing documentation reviewed up to this point in time: agreed with
History of Present Illness
History of Present Illness:
Ms. Dawn Camargo is a 35-year-old female with a PMH notable for idiopathic intracranial hypertension (IIH), hypertension, CHANCE, 2 clots in the upper extremities, who presents from her PCP office for high blood pressure of 200/140. She also has a
headache that is worsening and refractory to 100 mg of ibuprofen. She also has had blurry and double vision.
She was diagnosed with IIH in July 2020 for after presenting with left eye vision loss and hyperemia after receiving an endoscopy and colonoscopy. On lumbar puncture her opening pressure was elevated (perhaps equivocal after adjusting for BMI)
at 21 cm H2O. Brain MRI was notable for a partially empty sella syndrome with low-lying cerebellar tonsils, which are nonspecific but also consistent with increased intracranial pressure. She states she did not receive any other IIH treatment due
to insurance but is waiting for more treatment.
She denies having ADHD and does not take any stimulant medications.
Past History
Past History
ED Past Medical History: Asthma and Other (ADHD, Ankle Fracture, Lyme, Cellulitis, DVT, morbid obesity); Negative HTN, Hypercholesterolemia or NIDDM
ED Past Surgical History: , Gynecological (Ovarian cyst removed. Oophorectomy thinks Left), Orthopedic, Tonsilectomy and Other (Adenoid surgery)
Social History
Tobacco: Non-smoker
Alcohol: None
Personal: Single
Living: with family
Employment: Employed (childcare)
Review of Systems
Review of Systems
Respiratory: Reports no symptoms (Denies shortness of breath)
Cardiac: Reports no symptoms (Denied chest pain, palpitations, heart racing)
ABD/GI: Reports no symptoms (Denied abdominal pain and changes in bowel movements)
: Reports no symptoms (Denies changes in urination)
Musculoskeletal: Reports no symptoms (Denied back pain)
Neurological: Reports headache
Phy Exam
Physical Exam
Physical Exam:
General: Clutching her head, could ambulate to bathroom without assistance
Eyes: PERRL, EOMI
Course
Orders/Labs/Results
Orders:
Orders
04/03/25 13:52
ECG [Electrocardiogram (*1)] Urgent
Reason for Study: Hypertension, Benign
EKG- Treatment ONCE
04/03/25 14:07
CMP [Comprehensive Metabolic Panel] Urgent
Complete Blood Count/With Diff Urgent
04/03/25 16:06
CT Head W/o Iv Contrast Urgent
Comment:
Reason For Exam: hypertensive, vision changes
04/03/25 17:35
Ketorolac [Toradol] 15 mg IV NOW STA
04/03/25 19:54
Acetaminophen [Tylenol] 1,000 mg PO NOW STA
04/03/25 20:58
HydrALAZINE [Apresoline] 10 mg IV NOW STA
Abnormal Lab Results
04/03/25
14:07
Chloride 110 H mmol/L
(98-107)
04/03/25 14:07
04/03/25 14:07
Vital Signs
Initial and Last Documented VS:
Initial Vital Signs
Temp Pulse Resp BP Pulse Ox
98.9 F 77 18 196/124 99
04/03/25 13:50 04/03/25 13:50 04/03/25 13:50 04/03/25 13:50 04/03/25 13:50
Last Documented Vital Signs
Temp Pulse Resp BP Pulse Ox
98.9 F 66 22 181/102 99
04/03/25 13:50 04/03/25 19:30 04/03/25 19:30 04/03/25 19:30 04/03/25 19:30
MDM/Problems Addressed
Differential Diagnosis Includes:
Essential hypertension
IIH exacerbation
Increased intracranial pressure
MDM/Problems Addressed:
CT head negative for intracranial pathology as a cause for the headache and high blood pressure
Hydralazine 10mg IV
Toradol 15 mg for headache
Chronic conditions affecting care: HTN, Asthma and Other (Obesity)
*Pulse Oximetry
SaO2: 100
Oxygen Mode of Delivery: Room air
Patient hypoxic: no
*Critical Care Note
Total Time (30-74mins, 75-104mins- exclusive of procedures): Not Applicable
ED Attending Note
-
Portions of this chart may have been created with voice recognition software.� Occasional wrong word or��sound alike� substitutions may have occurred due to the inherent limitations of voice recognition software.
Discharge Plan
Departure
Patient Disposition: Home (Routine Discharge)
Date of Disposition: 04/03/25
Time of Disposition: 20:18
Patient with high blood pressure during this ER visit?: Yes
Condition: Fair
Discharge Problem:
Uncontrolled hypertension
Instructions: High Blood Pressure (DC), Headache in adults - ED discharge instructions
Prescriptions:
No Action
No Current Medications
0
Referrals:
Irving Rodriguez DO [Family Provider, Family Practice]
Activity Restrictions/Additional Instructions:
You came to the ED from your PCP due to high blood pressure and headache. He got a CT had which did not demonstrate an or intracranial cause for your hypertension or headache.
Please follow-up with your PCP within a week regarding blood pressure control and idiopathic intracranial hypertension.
Please return to the ED if you experience signs of end-organ damage, including vision changes, nausea/vomiting, chest pain, and difficulty breathing.
Interventions
Interventions:
*Risk Screen - Suicide Last Done: 04/03/25 13:50
*Neglect/Abuse Screening Last Done: 04/03/25 13:50
ED- Cardiac Assessment Last Done: 04/03/25 16:48
ED- Neurological Assessment Last Done: 04/03/25 16:48
ED- Pulmonary Assessment Last Done: 04/03/25 16:48
Discharge Date and Time
Print Language: TUVALUAN
[2025-04-03] MEDS: TORADOL 15 MG IV (17:42)
[2025-04-03] MEDS: TYLENOL 1000 MG PO (20:22)
[2025-04-03] MEDS: APRESOLINE 10 MG IV (21:08)
== END 2025-04-03 21:55 | disposition home or self-care (01) ==
LOC: EMR 13:43
PROVIDERS: Student in an Organized Health Care Education/Training Program; EMERGENCY PHYSICIAN Emergency Medicine; FAMILY PHYSICIAN Family Medicine
DX: I10 Essential (primary) hypertension (principal); R51.9 Headache, unspecified; J45.909 Unspecified asthma, uncomplicated; E66.9 Obesity, unspecified
CPT/HCPCS: 96374; 96375; 99284; 70450; 80053; 85025; 93005

== ENCOUNTER 2025-04-05 10:24 | Emergency (ER) | payer OTHER, SELFPAY ==
[2025-04-05 10:36] VITALS: BP 170/107
--- NOTE | 2025-04-05 11:10 | ED.GENMED ---
History of Present Illness
<JANESSA Neville - Last Filed: 04/05/25 16:22>
General
Chief Complaint: Facial Problem
Source: patient
Exam Limitations: none
Time Seen by Provider: 04/05/25 11:09
Nursing documentation reviewed up to this point in time: agreed with
History of Present Illness
History of Present Illness:
Patient is a 35-year-old female with past medical history of PCOS hypertension, presents to the ER for right-sided facial swelling. Patient reports she has a tooth that needs to be pulled in her right upper tooth. She has dental insurance but will
not cover tooth extraction. Her primary care physician put her on amoxicillin yesterday. She took 3 doses of 500 mg yesterday and 1 dose this morning but presents with increasing facial swelling. She does feel the facial swelling is moving down
to her throat region. Today she noted some hoarse voice. she also complains of lip swelling. She has been trying to drink fluids. She denies any fevers.
Past History
<JANESSA Neville - Last Filed: 04/05/25 16:22>
Past History
ED Past Medical History: Asthma and Other (ADHD, Ankle Fracture, Lyme, Cellulitis, DVT, morbid obesity); Negative HTN, Hypercholesterolemia or NIDDM
ED Past Surgical History: , Gynecological (Ovarian cyst removed. Oophorectomy thinks Left), Orthopedic, Tonsilectomy and Other (Adenoid surgery)
Social History
Tobacco: Non-smoker
Alcohol: None
Personal: Single
Living: with family
Employment: Employed (childcare)
Review of Systems
<JANESSA Neville - Last Filed: 04/05/25 16:22>
Review of Systems
Allergies reviewed?: Yes
All Other Systems: ROS reviewed and negative except as documented in HPI and ROS
Phy Exam
<JANESSA Neville - Last Filed: 04/05/25 16:22>
General Physical Exam
General Presentation: no apparent distress
General age: appears stated age
General Skin: warm and dry
General Habitus: obese
General Mental: alert
General Hydration: appears well hydrated
ENT Exam
ENT Exam: other (Right-sided facial swelling tender to the right facial region tenderness the right upper tooth # 6 however no surrounding fluctuance or abscess. no trismus )
Neurological Exam
Neurological Exam: alert and oriented x3
Musculoskeletal Exam
Musculoskeletal Exam: full ROM
Skin Exam
Skin Exam: normal color and warm/dry
Psychiatric Exam
Psychiatric Exam: normal mood/affect
Sepsis
<JANESSA Neville - Last Filed: 04/05/25 16:22>
Sepsis Screening
Sepsis Assessment: Sepsis Ruled Out
Sepsis Screen
Sepsis Screen: Sepsis Ruled Out
Date: 04/05/25
Time: 16:22
Course
<JANESSA Neville - Last Filed: 04/05/25 16:22>
Orders/Labs/Results
Orders:
Orders
04/05/25 11:18
CT Facial Bones W/ Iv Contrast Urgent
Comment:
Reason For Exam: right sided facial swelling/tooth pain
IV Insert/Care/Rem.- Treatment PRN
0.9% Sodium Chloride 1000 ml [Nss] 1,000 ml IV BOLUS
04/05/25 11:19
Test Result ONCE
04/05/25 11:20
Ketorolac [Toradol] 15 mg IV NOW STA
04/05/25 11:34
Complete Blood Count/With Diff Urgent
Comprehensive Metabolic Panel Urgent
HCG, Serum Qualitative Screen Urgent
04/05/25 15:28
Dexamethasone Sod Phosphate [Decadron] 10 mg IV NOW STA
Abnormal Lab Results
04/05/25
11:34
MCHC 32.8 L g/dL
(33.0-37.0)
Chloride 109 H mmol/L
(98-107)
04/05/25 11:34
04/05/25 11:34
Vital Signs
Initial and Last Documented VS:
Initial Vital Signs
Temp Pulse Resp BP Pulse Ox
98.7 F 91 18 170/107 99
04/05/25 10:36 04/05/25 10:36 04/05/25 10:36 04/05/25 10:36 04/05/25 10:36
Last Documented Vital Signs
Temp Pulse Resp BP Pulse Ox
98.8 F 78 18 158/89 100
04/05/25 14:29 04/05/25 15:51 04/05/25 15:51 04/05/25 15:51 04/05/25 15:51
Lean Engineer consulted with Physician
Lean Engineer consulted with physician?: Yes
Name of Physician Consulted: hayden
<Benjamin James MD - Last Filed: 04/05/25 15:52>
Orders/Labs/Results
Orders:
Orders
04/05/25 11:18
CT Facial Bones W/ Iv Contrast Urgent
Comment:
Reason For Exam: right sided facial swelling/tooth pain
IV Insert/Care/Rem.- Treatment PRN
0.9% Sodium Chloride 1000 ml [Nss] 1,000 ml IV BOLUS
04/05/25 11:19
Test Result ONCE
04/05/25 11:20
Ketorolac [Toradol] 15 mg IV NOW STA
04/05/25 11:34
Complete Blood Count/With Diff Urgent
Comprehensive Metabolic Panel Urgent
HCG, Serum Qualitative Screen Urgent
04/05/25 15:28
Dexamethasone Sod Phosphate [Decadron] 10 mg IV NOW STA
Abnormal Lab Results
04/05/25
11:34
MCHC 32.8 L g/dL
(33.0-37.0)
Chloride 109 H mmol/L
(98-107)
04/05/25 11:34
04/05/25 11:34
Vital Signs
Initial and Last Documented VS:
Initial Vital Signs
Temp Pulse Resp BP Pulse Ox
98.7 F 91 18 170/107 99
04/05/25 10:36 04/05/25 10:36 04/05/25 10:36 04/05/25 10:36 04/05/25 10:36
Last Documented Vital Signs
Temp Pulse Resp BP Pulse Ox
98.8 F 78 18 158/89 100
04/05/25 14:29 04/05/25 15:51 04/05/25 15:51 04/05/25 15:51 04/05/25 15:51
<JANESSA Neville - Last Filed: 04/05/25 16:22>
MDM/Problems Addressed
Differential Diagnosis Includes:
Not limited to dental cavity, dental infection, abscess
MDM/Problems Addressed:
As documented patient is a 35-year-old female completed 1 day of amoxicillin for tooth infection complains of increasing facial swelling also noted some swelling into the right neck area and noticed a hoarse voice today. She is able to tolerate
secretions and eat and drink. She has obvious facial swelling on exam no drooling lungs are clear no acute respiratory distress. CAT scan shows right second bicuspid dental cavity and mild asymmetric soft tissue swelling medially adjacent to the
right anterior lateral mandible and maxilla without collection or abscess. Patient denies any fevers afebrile with a normal white count.
patient was eval by ED physician and ENT did see her as well into the bedside scope with no concerning findings. ENT does recommend addition of steroids and continued antibiotics
<JANESSA Neville - Last Filed: 04/05/25 16:22>
*Radiology
Radiology exam reviewed: radiology read reviewed
*Pulse Oximetry
SaO2: 99
Oxygen Mode of Delivery: Room air
Patient hypoxic: no
*Critical Care Note
Total Time (30-74mins, 75-104mins- exclusive of procedures): Not Applicable
<JANESSA Neville - Last Filed: 04/05/25 16:22>
Patient Management
Discussion with other providers: Beater Tender (ENT )
ED Attending Note
<JANESSA Neville - Last Filed: 04/05/25 16:22>
-
Portions of this chart may have been created with voice recognition software.� Occasional wrong word or��sound alike� substitutions may have occurred due to the inherent limitations of voice recognition software.
<Benjamin James MD - Last Filed: 04/05/25 15:52>
ED Attending Note
Patient seen and examined by attending physician: Yes
ED Attending Note:
I have seen and evaluated the patient with a [id number] encounter. I have spoken to the advance practicer provider and involved in the medical history, the physical exam, medical decision making.
Evaluation and management service: agree unless noted differently below.
Results interpretation: agree unless noted differently below.
Focused HPI: 35-year-old female presents for evaluation of right facial pain and swelling. Patient has a cavity in the right upper tooth and unfortunately due to insurance issues was not able to get a dentist to fix this. Over the past few days
started to notice pain and swelling in the right upper tooth. Over the past 24 hours has developed swelling of the cheek and came to the ER for evaluation. No fever reported. Her only other report on review of systems was that she feels some
slight hoarseness of her voice and feels some difficulty swallowing. Denies shortness of breath. She has been on amoxicillin for 24 hours prescribed by dentist.
Physical exam: Awake and alert no distress. Hypertensive but otherwise normal vitals. She has no swelling of the tongue, no tongue elevation. Widely patent oropharynx with midline uvula no edema. No trismus. No appreciable adenopathy in the
anterior posterior cervical chains or in the submental region. On exam of the right cheek she has some tenderness over the right maxillary region, no mandibular tenderness.
Medical Decision Makin-year-old female presents with right facial swelling she also has some complaint of hoarseness and trouble swallowing. Has been on amoxicillin for presumed dental infection but had some increased swelling which prompted
ER visit today. Vitals and exam as above. Labs here were unremarkable. CT of the face shows some localized soft tissue swelling but no defined abscess. She is on appropriate antibiotic therapy and I think she should continue treatment. Given
her report of some hoarseness we did discuss with ENT for consultation�NPL showed no signs of vocal cord edema or upper airway obstruction. Recommended starting some steroids. Patient will need to follow-up outpatient with a dentist. All
questions answered.
Discharge Plan
Departure
Patient Disposition: Home (Routine Discharge)
Date of Disposition: 04/05/25
Time of Disposition: 16:11
Patient with high blood pressure during this ER visit?: Yes
Condition: Fair
Covid-19: Not Applicable
Discharge Problem:
Dental infection
Instructions: Dental pain - ED discharge instructions, BLOOD PRESSURE
Prescriptions:
New
prednisone 20 mg tablet
40 mg PO DAILY Qty: 10 0RF
Referrals:
Irving Rodriguez DO [Family Provider, Family Practice]
José Manuel Castano DMD, MD [Active, Oral Surgery]
Activity Restrictions/Additional Instructions:
discussed continue antibiotics and start prednisone. Your CAT scan was negative for abscess.
You were given 1 dose of IV steroid here in the ER. A prescription was sent to your pharmacy for the next 5 days.
Please follow-up closely with your dentist. You are also given the information for follow-up with oral surgery as well. Call today to make an appointment . Return if any worsening of symptoms
Interventions
Interventions:
*Risk Screen - Suicide Last Done: 04/05/25 10:36
*General Assessment Last Done: 04/05/25 11:42
*Neglect/Abuse Screening Last Done: 04/05/25 10:36
*ED- Fall Risk Assessment Last Done: 04/05/25 11:42
*ED COVID-19 Vaccine History Last Done: 04/05/25 11:42
ED- Neurological Assessment Last Done: 04/05/25 11:42
ED-Skin Assessment Last Done: 04/05/25 11:42
Discharge Date and Time
Print Language: MARTINIQUAIS
[2025-04-05] MEDS: NSS 1000 IV (11:34)
[2025-04-05] MEDS: TORADOL 15 MG IV (11:38)
[2025-04-05 11:49] LABS: Hematocrit 38.7 % (37.0-47.0); Hemoglobin 12.7 g/dL (12.0-16.0); Mean Corp Hgb Conc. 32.8 g/dL (33.0-37.0); Mean Corpuscular Volume 89.4 fL (81.0-99.0); Nucleated Red Blood Cells % 0 %; Platelet Count 172 10^3/uL (130-400); Red Cell Dist. Width 12.7 % (11.5-14.5)
[2025-04-05 11:56] LABS: HCG, Serum Qualitative Screen Negative
[2025-04-05 12:08] LABS: ALT (SGPT) < 10 U/L (0-35); AST (SGOT) 17 U/L (14-36); Albumin 3.8 g/dl (3.5-5.0); Alkaline Phosphatase 57 U/L (38-126); Blood Urea Nitrogen 8 mg/dl (7-17); Calcium 8.7 mg/dl (8.4-10.2); Carbon Dioxide 24 mmol/L (22-30); Chloride 109 mmol/L (98-107); Glucose 93 mg/dl (70-99); Potassium 4.2 mmol/L (3.5-5.1); Sodium 138 mmol/L (135-145); Total Protein 6.6 g/dl (6.3-8.2); eGFR > 60.00
[2025-04-05 12:34] VITALS: BP 161/96
[2025-04-05 14:29] VITALS: BP 169/91
--- NOTE | 2025-04-05 15:23 | CON.MD ---
Consultation - Medical
-
35 yo c intracranial HTN presents c R facial swelling x 1 day
knows she has infected tooth that needs extraction
Consulted because of hoarseness as well x 1 day
No dyspnea
PE - No stridor or drooling
Tender R cheek and gingiva
CT scan shows dental cavity , no facial abscess
Neck - negative
Voice a bit raspy
WBC - normal, afebrile
Flex endo - mild edema R pharyngeal wall
Mild edema of arytenoids
Vocal cords mobile and normal
No airway obstruction
A/p Dental infection causing cheek swelling
Recommend antibiotics and few doses of steroid
Needs oral surgery eval either here or as oupt
No airway obstruction or concerning vocal cord findings
May benefit from trial of PPI's for throat symptoms
can follow up as outpt
[2025-04-05 15:51] VITALS: BP 158/89
[2025-04-05] MEDS: DECADRON 10 MG IV (15:53)
== END 2025-04-05 16:36 | disposition home or self-care (01) ==
LOC: EMR 10:24
PROVIDERS: Nurse Practitioner; EMERGENCY PHYSICIAN Emergency Medicine; FAMILY PHYSICIAN Family Medicine
DX: K04.7 Periapical abscess without sinus (principal); E28.2 Polycystic ovarian syndrome; I10 Essential (primary) hypertension; J45.909 Unspecified asthma, uncomplicated; F90.9 Attention-deficit hyperactivity disorder, unspecified type; Z59.71 Insufficient health insurance coverage; Z86.718 Personal history of other venous thrombosis and embolism; Z90.721 Acquired absence of ovaries, unilateral
CPT/HCPCS: 99284; 96374; 96375; 96361; 70487; 80053; 84703; 85025; Q9967

== ENCOUNTER → 2025-06-22 14:42 | Outpatient (REF) | payer OTHER, SELFPAY | LOC: RAD 14:42 | PROVIDERS: ATTENDING PHYSICIAN Family Medicine | DX: I10 Essential (primary) hypertension (principal) | CPT/HCPCS: 76775 ==

== ENCOUNTER 2025-07-06 18:22 | Emergency (ER) | payer OTHER, SELFPAY ==
[2025-07-06 18:31] VITALS: BP 185/118
[2025-07-06 19:04] LABS: Hematocrit 42.0 % (37.0-47.0); Hemoglobin 13.4 g/dL (12.0-16.0); Mean Corp Hgb Conc. 31.9 g/dL (33.0-37.0); Mean Corpuscular Volume 91.5 fL (81.0-99.0); Nucleated Red Blood Cells % 0 %; Platelet Count 242 10^3/uL (130-400); Red Cell Dist. Width 13.0 % (11.5-14.5)
[2025-07-06 19:23] LABS: ALT (SGPT) 12 U/L (0-35); AST (SGOT) 20 U/L (14-36); Albumin 4.3 g/dl (3.5-5.0); Alkaline Phosphatase 68 U/L (38-126); Blood Urea Nitrogen 11 mg/dl (7-17); Calcium 9.1 mg/dl (8.4-10.2); Carbon Dioxide 28 mmol/L (22-30); Chloride 103 mmol/L (98-107); Glucose 102 mg/dl (70-99); Potassium 3.7 mmol/L (3.5-5.1); Sodium 137 mmol/L (135-145); Total Protein 8.0 g/dl (6.3-8.2); eGFR > 60.00
[2025-07-06 21:40] VITALS: BP 139/100
[2025-07-06 21:46] VITALS: BMI 67.3
[2025-07-06] MEDS: NSS 1000 IV (22:54)
[2025-07-06] MEDS: DILAUDID 0.5 MG IV (22:55)
[2025-07-06] MEDS: TORADOL 15 MG IV (22:56)
--- NOTE | 2025-07-07 01:33 | ED.GENMED ---
History of Present Illness
General
Chief Complaint: Dental Problem
Time Seen by Provider: 07/06/25 22:27
Nursing documentation reviewed up to this point in time: agreed with
History of Present Illness
History of Present Illness:
35-year-old female presents to the ER for further evaluation of facial pain and swelling is status post tooth extraction on . Patient noted pain and swelling along with development of an abscess at this tooth on Wednesday. She saw her dentist
and was initiated on antibiotics at that time. She noted worsening pain and swelling today along with a temperature of 102 and was referred to the ER for further evaluation. Patient has been using oxycodone with Tylenol as prescribed by her doctor
for discomfort. She also has been using her clindamycin as prescribed. She has had difficult time eating due to the severity of her discomfort. No respiratory complaints, no pain with swallowing.
Past History
Past History
ED Past Medical History: Asthma and Other (ADHD, Ankle Fracture, Lyme, Cellulitis, DVT, morbid obesity); Negative HTN, Hypercholesterolemia or NIDDM
ED Past Surgical History: , Gynecological (Ovarian cyst removed. Oophorectomy thinks Left), Orthopedic, Tonsilectomy and Other (Adenoid surgery)
Social History
Tobacco: Non-smoker
Alcohol: None
Personal: Single
Living: with family
Employment: Employed (childcare)
Review of Systems
Review of Systems
Allergies reviewed?: Yes
Phy Exam
Physical Exam
Physical Exam:
Patient is awake, alert, obese, appears in no acute distress, head is NCAT, PERRL, EOMI mucous membranes moist, tooth #3 has been extracted with swelling and ecchymosis localized at the gumline, no pointing, no stridor, no trismus, no purulent
drainage, no foul odor, no tongue elevation, conjunctiva pink, heart regular rate and rhythm without murmurs or ectopy, lungs are clear to auscultation without wheezes rales or rhonchi, no JVD, abdomen is soft and nontender on palpation, extremities
without edema, GCS is 15
Sepsis
Sepsis Screening
Sepsis Assessment: Sepsis Ruled Out
Sepsis Screen
Sepsis Screen: Sepsis Ruled Out
Date: 07/07/25
Time: 02:50
Course
Orders/Labs/Results
Orders:
Orders
07/06/25 18:29
Electrocardiogram (*1) Urgent
Reason for Study: Other
Other Reason for Exam: Possible Sepsis
IV Insert/Care/Rem.- Treatment PRN
07/06/25 18:50
Complete Blood Count/With Diff Urgent
Comprehensive Metabolic Panel Urgent
Lactic Acid Q4H
Comment: ON ICE, CANCEL 2ND ORDER IF FIRST LACTIC ACID LEVEL <2
Blood Culture Q20M
ABRAHAM Source: Blood/Venous
Specimen Description:
Comment: Urgent from separate sites. If patient screens positive for possible sepsis
07/06/25 18:54
Blood Culture Q20M
ABRAHAM Source: Blood/Venous
Specimen Description:
Comment: Urgent from separate sites. If patient screens positive for possible sepsis
07/06/25 22:42
HYDROmorphone [Dilaudid] 0.5 mg IV NOW STA
Ketorolac [Toradol] 15 mg IV NOW STA
07/06/25 22:45
0.9% Sodium Chloride 1000 ml [Nss] 1,000 ml IV BOLUS
07/06/25 23:00
Urinalysis Reflex To Culture Urgent
Date Specimen was Collected: 07/06/25
Time Specimen was Collected: 18:30
07/07/25 00:00
CT Facial Bones W/ Iv Contrast Urgent
Reason For Exam: dental pain s/p extraction
07/07/25 01:53
Doxycycline [Vibramycin] 100 mg PO NOW STA
Abnormal Lab Results
07/06/25
18:50
MCHC 31.9 L g/dL
(33.0-37.0)
Glucose 102 H mg/dl
(70-99)
07/06/25 18:50
07/06/25 18:50
Very reassuring CBC with normal white blood count. Kidney function preserved. No electrolyte dyscrasia
Vital Signs
Initial and Last Documented VS:
Initial Vital Signs
Temp Pulse Resp BP Pulse Ox
98.1 F 98 15 185/118 98
07/06/25 18:31 07/06/25 18:31 07/06/25 18:31 07/06/25 18:31 07/06/25 18:31
Last Documented Vital Signs
Temp Pulse Resp BP Pulse Ox
98.1 F 72 20 139/100 98
07/06/25 18:31 07/06/25 21:40 07/07/25 02:42 07/06/25 21:40 07/07/25 02:42
MDM/Problems Addressed
Differential Diagnosis Includes:
Differential diagnosis to consider but not limited to apical abscess, osteomyelitis, cellulitis, postoperative pain along with other etiologies considered
Chronic conditions affecting care:
Hypertension, asthma, DVT
*Radiology
Radiology exam reviewed: radiology read reviewed (CT maxillofacial with contrast shows evidence for recent extraction of right maxillary second premolar. Mild cellulitis in the overlying soft tissues. No evidence for soft tissue abscess)
*Pulse Oximetry
SaO2: 98
Oxygen Mode of Delivery: Room air
Patient hypoxic: no
*Critical Care Note
Total Time (30-74mins, 75-104mins- exclusive of procedures): Not Applicable
Update Note
Update Note:
Patient feeling much better after medications administered in the ER. I reviewed all test results with patient including no evidence for acute abscess. Patient has prior allergy to amoxicillin. She is currently on clindamycin. Will initiate
doxycycline as next choice of antibiotic. I discussed with patient need to follow-up with her dentist for reevaluation and further care along with strict return precautions. She expressed understanding of discharge plan and had no questions prior
to leaving the department.
ED Attending Note
-
Portions of this chart may have been created with voice recognition software.� Occasional wrong word or��sound alike� substitutions may have occurred due to the inherent limitations of voice recognition software.
Discharge Plan
Departure
Patient Disposition: Home (Routine Discharge)
Date of Disposition: 07/07/25
Time of Disposition: 01:57
Patient with high blood pressure during this ER visit?: Yes
Discharge Problem:
Pain, dental
Instructions: Dental Pain (DC), BLOOD PRESSURE
Prescriptions:
New
doxycycline monohydrate 100 mg capsule
100 mg PO BID Qty: 14 0RF
No Action
oxycodone-acetaminophen 5-325 mg Tablet
1 tab PO Q6H
amiloride 5 mg Tablet
5 mg PO BID
ibuprofen 600 mg Tablet
600 mg PO Q6H
Clindamycin
300 mg PO TID
amlodipine benzoate
1 tab PO DAILY
Rx Instructions:
5/10mg
hydralazine
25 mg PO TID
Referrals:
Irving Rodriguez DO [Family Provider, Family Practice]
Activity Restrictions/Additional Instructions:
Complete course of doxycycline as prescribed. You do not need to continue taking clindamycin. Please follow-up with your dentist on Wednesday for reevaluation and further care. Return to the ER for any concerns
Interventions
Interventions:
*Risk Screen - Suicide Last Done: 07/06/25 18:31
*General Assessment Last Done: 07/06/25 18:31
*Neglect/Abuse Screening Last Done: 07/06/25 18:31
*ED- Fall Risk Assessment Last Done: 07/07/25 02:44
*ED COVID-19 Vaccine History Last Done: 07/06/25 18:31
*ED Influenza Vaccine History Last Done: 07/06/25 18:31
*Nursing Disposition Last Done: 07/07/25 02:44
Discharge Date and Time
Discharge Date/Time: 07/07/25 02:45
Print Language: OCCITAN
[2025-07-07] MEDS: VIBRAMYCIN 100 MG PO (02:25)
== END 2025-07-07 02:45 | disposition home or self-care (01) ==
LOC: EMR 18:22
PROVIDERS: Emergency Medicine; EMERGENCY PHYSICIAN Emergency Medicine; FAMILY PHYSICIAN Family Medicine
DX: K08.89 Other specified disorders of teeth and supporting structures (principal); I10 Essential (primary) hypertension; J45.909 Unspecified asthma, uncomplicated; Z86.718 Personal history of other venous thrombosis and embolism; Z98.818 Other dental procedure status
CPT/HCPCS: 96374; 96375; 96361; 99284; 70487; 80053; 83605; 85025; 87040; 93005; Q9967

== ENCOUNTER → 2025-08-21 14:36 | Outpatient (REF) | payer OTHER, SELFPAY | LOC: HWRAD 14:36 | PROVIDERS: ATTENDING PHYSICIAN Internal Medicine Nephrology; FAMILY PHYSICIAN Family Medicine | DX: I10 Essential (primary) hypertension (principal) | CPT/HCPCS: 76770 ==

== ENCOUNTER → 2025-08-31 11:07 | Outpatient (REF) | payer OTHER, SELFPAY | LOC: DHVS 11:07 | PROVIDERS: ATTENDING PHYSICIAN Internal Medicine Nephrology; FAMILY PHYSICIAN Family Medicine | DX: I10 Essential (primary) hypertension (principal) | CPT/HCPCS: 93975 ==